=== PATIENT | male | born 1950 | race Caucasian/White ===

== ENCOUNTER 2022-02-07 16:56 | Emergency (ER) | payer MEDICARE, SELFPAY ==
[2022-02-07 17:12] VITALS: BP 173/77; PULSE 73; RESP 16; TEMP 37.1; O2SAT 98; BMI 25.1
--- NOTE | 2022-02-07 17:37 | ED.GENADULT ---
HPI - General Adult General Chief complaint: Urogenital Problems, Male Stated complaint: PROSTATE CATHETER - BURNING SENSATION Time Seen by Provider: 02/07/22 17:01 Source: patient History of Present Illness HPI narrative: Patient is a 71-year-old male who presents with discomfort from his catheter. He was seen last Tuesday for urinary retention a catheter was placed. He tells me he was at [facility] on and they were going to do a trial void, but he has a urology appointment for this upcoming Tuesday, and so Dr. Rodriguez had apparently decided just to leave the catheter in. He says since he has really had a burning sensation in his penis from the catheter, particularly when he has the urge to void. He has not had any abdominal pain, fevers, chills. The urine has not looked cloudy or bloody. The catheter seems to be working just fine, draining well. It has just been very uncomfortable, and he decided to get it checked out today, wondering if there is anything he can take for it. He has never had a catheter before. Related Data Home Medications Medication Instructions Recorded Confirmed allopurinol 300 mg tablet mg 02/07/22 lisinopril 10 mg tablet mg 02/07/22 metoprolol succinate 50 mg mg PO 02/07/22 tablet,extended release 24 hr simvastatin 80 mg tablet mg 02/07/22 tamsulosin 0.4 mg capsule mg PO 02/07/22 Allergies Allergy/AdvReac Type Severity Reaction Status Date / Time No Known Drug Allergies Allergy Verified 02/07/22 17:12 Review of Systems Status of ROS: Reports: 10 or more systems reviewed and unremarkable except as noted in History and below [facility] Medical History Gout Hypertension Urinary retention Surgical History No significant past surgical history Exam Narrative: Exam Narrative: In general, an alert, well-appearing male. Looks comfortable. Abdomen: Soft and nontender. exam deferred Extremities: Leg bag in place, draining well. Skin: Warm and dry, well perfused. Neurologic: Alert, conversant. Affect: Normal. Const: Vital Signs, click to edit/add: Vital Signs - 24 hr 02/07/22 17:12 Temperature 98.8 F Pulse Rate [Pulse Oximeter] 73 Respiratory Rate 16 Blood Pressure [Ri ght Upper Arm] 173/77 H Pulse Oximetry 98 Oxygen Delivery Me thod Room Air Documenting provider has reviewed patient's vital signs: yes Course Course Hospital Course: We will start by getting a urinalysis to rule out any sign of significant infection. Discussed with him that what he is describing sounds like it could just be related to symptoms from the catheter itself. He would like to do a trial void if the UA is negative. Patient did eventually fail the trial of void. UA was negative. Following catheter placement with Uro jet, patient feels much better. Discussed that as the topical anesthetic wears off he probably will have recurrence of the discomfort he was having earlier. He wondered if aspirin would help. He can certainly try that. I offered stronger pain medication if you would like particularly to help with sleep, he thought that would be good idea since he says at least earlier today the pain was fairly severe. Follow-up with Urology as planned. Vital Signs Vital signs: Initial Vital Signs Temperature 98.8 F 02/07/22 17:12 Temperature Source Temporal Artery Scan 02/07/22 17:12 Pulse Rate 73 02/07/22 17:12 Respiratory Rate 16 02/07/22 17:12 Blood Pressure 173/77 H 02/07/22 17:12 Blood Pressure Mean 109 02/07/22 17:12 Pulse Oximetry 98 02/07/22 17:12 Oxygen Delivery Method 02/07/22 17:12 Vital Signs Temperature 98.8 F 02/07/22 17:12 Pulse Rate 73 02/07/22 17:12 Respiratory Rate 16 02/07/22 17:12 Blood Pressure 173/77 H 02/07/22 17:12 Pulse Oximetry 98 02/07/22 17:12 Oxygen Delivery Method 02/07/22 17:12 Temperature 98.8 F 02/07/22 17:12 Pulse Rate 73 02/07/22 17:12 Respiratory Rate 16 02/07/22 17:12 Blood Pressure 173/77 H 02/07/22 17:12 Pulse Oximetry 98 02/07/22 17:12 Oxygen Delivery Method 02/07/22 17:12 Medical Decision Making Lab Data Labs: Lab Results 02/07/22 Range/Units 17:35 Urine Color Yellow (Yellow) Urine Appearance Clear (Clear) Urine pH 5.5 (5.0-8.5) Ur Specific [place] >= 1.030 (1.000-1.030) Urine Protein 2+ A (Negative) Urine Glucose (UA) Negative (Negative) Urine Ketones Negative (Negative) Urine Blood 3+ A (Negative) Urine Nitrite Negative (Negative) Urine Bilirubin Negative (Negative) Urine Urobilinogen 0.2 (0.2-1.0) Ur Leukocyte Esterase Trace A (Negative) Urine RBC 25-50 A (0-2) Urine WBC 2-5 (0-5) Ur Squamous Epith Cells Few (None-Few) Urine Bacteria None (None) Discharge Plan Discharge Clinical Impression: Complication of Wylie catheter Patient Disposition: Home, Self-Care Condition: Stable Additional Instructions: Urology follow-up on Tuesday as planned. There is no evidence of infection on the urinalysis today. Okay to try aspirin, oxycodone if needed for more severe pain. Prescriptions: No Action metoprolol succinate 50 mg tablet extended release 24 hr PO simvastatin 80 mg tablet tamsulosin 0.4 mg capsule PO lisinopril 10 mg tablet allopurinol 300 mg tablet Follow Up/Referrals: Jose Mason MD [Primary Care Provider] - Stand Alone Forms: Styky Info Instructions
--- OUTSIDE RECORDS SUMMARY | 2022-02-07 17:49 | XMS_ITS | Clinical Summary ---
:1950 Author Organization [facility] [place] [address] Care Team Providers Name Role Phone Jayro Mcconnell MD Primary Care Provider Ab Rm MD Unavailable [phone] Allergies No known active allergies Medications Medication Sig Dispensed Refills Start Date End Date Status aspirin enteric coated Take 1 tablet 90 tablet 3 03/24/2018 Active (ECOTRIN) 325 mg by mouth once tabletIndications: daily with a Coronary artery disease meal. involving port lions coronary artery of port lions heart without angina pectoris nitroglycerin (Nitrostat) Place 1 25 Tablet 6 12/16/2021 Active 0.4 mg sublingual Tablet (0.4 tabletIndications: mg) under the Coronary artery disease tongue every involving port lions coronary 5 minutes if artery of port lions heart needed for without angina pectoris Chest Pain. allopurinoL (ZYLOPRIM) 300 Take 1 Tablet 90 Tablet 3 2 Active mg tabletIndications: (300 mg) by Gout, unspecified cause, mouth once unspecified chronicity, daily. unspecified site lisinopriL (PRINIVIL; Take 1 Tablet 90 Tablet 3 12/16/2021 Active ZESTRIL) 10 mg (10 mg) by tabletIndications: mouth once Essential hypertension daily. metoprolol succinate Take 1 Tablet 90 Tablet 3 12/16/2021 Active (TOPROL XL) 50 mg (50 mg) by sustained-release mouth once tabletIndications: daily. Essential hypertension simvastatin (ZOCOR) 80 mg Take 1 Tablet 90 Tablet 3 12/16/2021 Active tabletIndications: Pure (80 mg) by hypercholesterolemia mouth at bedtime. tamsulosin (Flomax) 0.4 mg Take 2 180 Capsule 3 12/16/2021 Active capsuleIndications: Benign Capsules (0.8 non-nodular prostatic mg) by mouth hyperplasia with lower once daily urinary tract symptoms after a meal. Active Problems Problem Noted Date Essential hypertension 08/16/2018 Seborrheic keratosis 07/22/2017 Overview: 1 by 1.5 cm flesh colored lesion on righ t shoulder. 6 by 15 mm as of 10/14/2017 Benign non-nodular prostatic hyperplasia with lower ur inary tract symptoms 07/21/2015 Coronary artery disease involving port lions coronary richard ry of port lions heart 05/19/2015 without angina pectoris Overview: Stent in mid left anterior descending in 2007. No history of VT. Idiopathic gout 05/19/2015 CKD (chronic kidney disease) stage 3, GFR 30-59 ml/min 08/13/2013 Overview: 07/28/12 Creatinine 1.38, glomerular filt ration rate 53 07/27/13 Creatinine 1.27, glomerular filt ration rate 58 DDD (degenerative disc disease), lumbar 08/27/2011 Degenerative arthritis of both hips - R worse than L 0 08/27/2011 Overview: Pt scheduled for right total hip arthrop lasty on 08/20/[address] Herron Elevated prostate specific antigen (PSA) 08/22/2011 Overview: Bx negative in 2011 Colon polyp 09/02/2010 Overview: Colonoscopy 08/2010 polyp repeat in 3 yea rs Colonoscopy 12/2013 normal repeat in 5 ye ars Colonoscopy 12/2018 normal, repeat in 5 y ears Prediabetes 07/29/2009 Overview: Glucose (07/27/13) 116 Generalized hyperhidrosis 10/24/2007 Degeneration of lumbar or lumbosacral intervertebral d isc 03/23/2007 Overview: Pt takes aspirin in the morning. Pure hypercholesterolemia 03/23/2007 Overview: Last Lipids: Chol: 148 07/28/2012 T 07/28/2012 HDL: 39 07/28/2012 LDL: 81 07/28/2012 On simvastatin Resolved Problems Problem Noted Date Resolved Date Other chest pain 10/24/2007 01/19/2008 Overview: -had pain 3 years ago -stress test was negative per patient r eport -this time started 10/18/[address] (does not usually drive) -had same pain while running a couple o f blocks on 10/19/2007 -same pain while walking around [place] 10/20/2007 -same pain 2 episodes 10/24/2007 -chest burning/tightness -some dyspnea -some diaphoresis -radiating to left arm and up into neck /jaw Gouty Arthropathy 03/23/2007 08/13/2013 Encounters Date Type Specialty Care Team Description 02/04/2022 Office Visit Douglas Rodriguez Follo w Up (catheter) 02/04/2022 Travel 02/03/2022 Orders Only Douglas Rodriguez, <No s cans attached> 02/01/2022 Office Visit Douglas Rodriguez Urina ry Problem (Urgency, MD not urinating m sabas rowan, deniz moreno, x 2 day) 02/01/2022 Travel 01/05/2022 Office Visit Leanna Cramer Reche ck (Lesion of throat) PA 01/05/2022 Travel 12/16/2021 Office Visit Jayro Mcconnell MD [facility] ANNUAL (subsequent) Vi sit (71 years) 12/16/2021 Travel 11/26/2021 Refill Jayro Mcconnell MD Refi ll Request (Simvastatin) from Last 3 Months Immunizations Name Administration Dates Next Due Amb Influenza, Inactivated AIIV4 (Age 65+ Years) 02/07/2020 Preserv Free COVID-19 vaccine (Moderna 100mcg/0.5mL) TANVIR MATTHEWS 08/07/2020, 07/10/2020 Influenza, Inactivated IIV3 (Age 65+ Years) Preserv 07/10/19 20 Free Pneumococcal Poly,23-Valent (Pneumovax) 10/18/2019 Pneumococcal conj 13-Valent (Prevnar 13) 10/16/2018 Td (Age >=7 Years) 06/28/2005 Tdap 04/23/2016 Zoster (Shingrix-RZV, recombinant) 09/04/2020, 05/14/2020 Zoster (Zostavax-ZVL, live) 02/26/2013 Family History Medical History Relation Name Comments Arthritis Father bilateral hip re placements Heart Disease Father needed 3 stents at age 88 Hypertension Father later in life Other Father of old age at 91; he also had mesothelioma Stroke Mother of stroke a t 71; smoker Hypertension Other [place] Relation Name Status Comments Brother 1 Alive Brother 2 Alive Brother 3 Alive Father Mother Other Sister 1 Galina Alive Sister 2 Mary Alive Sister 3 Alive Social History Tobacco Use Types Packs/Day Years Used Date Never Smoker Smokeless Tobacco: Never Used Tobacco Cessation: Counseling Given: Yes Comments: lived with 2nd hand smoke for 18 yrs. Alcohol Use Standard Drinks/Week Comments No 0 (1 standard drink = 0.6 oz pure alcoho l) Sex Assigned at Date Recorded Not on file COVID-19 Exposure Response Date Recorded In the last 10 days, have you been in contact with No / Unsu re 02/04/2022 9:29 AM CDT someone who was confirmed or suspected to have Coronavirus/COVID-19? 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 Saturation 98% 02/04/2022 9:34 AM CDT Inhaled Oxygen Concentration - - Weight 73.2 kg (161 lb 6.4 oz) 02/04/2022 9:34 AM CDT Height 169.7 cm (5' 6.8) 02/04/2022 9:34 AM CDT Body Mass Index 25.43 02/04/2022 9:34 AM CDT Plan of Treatment Upcoming Encounters Date Type Specialty Care Team Description 04/15/2022 Office Visit Mindi Godinez MD [address] [phone] (Wo rk) 07/07/2022 Office Visit Leanna Cramer PA [address] [facility] [place], [place] [address] (Wo rk) Health Maintenance Due Date Last Done Comments COVID-19 vaccine series (5 - 11/02/2021 09/07/2021, 021, Booster for Moderna series) 08/07/2020, Addition al history exists Influenza for age 65+ 01/07/2022 02/07/2020, 07/10/2019 Depression screening for age 12+ 12/16/2022 12/16/2021, , 2019, Additional history exists Medicare Wellness for age 65+ 12/16/2022 12/16/2021, 2020, 2019, Additional history exists BMI (ht and wt on same day) for 02/04/2023 02/04/2022, 01/08, age 18+ 12/16/2021, Additional history exists Colonoscopy through age 75 01/05/2024 01/04/2019, 9, 01/04/2019, Additional history exists Tetanus booster 04/23/2026 04/23/2016, 06/28/2005 Lipids for age 45-75 12/16/2026 12/16/2021, 10/21/2020, 10/18/2019, Additional history exists Tdap Completed 04/23/2016 Hepatitis C screening for age Completed 08/04/2016 18-79 Pneumococcal series for age 65+ Completed 10/18/2019, 10/07 Zoster (shingles) series for age Completed 09/04/2020, 10/2020, 50+ 02/26/2013 Medical Devices Implanted Type Area Director Cloud Transformation Device Shelf Model / Identifier Expiration Serial / Lot Date Head Hip Od28mm +4 Biolox Delta C-Taper Alumina Cer - [id number] Right: [employer] [id number]# / Implanted: Qty: 1 on 08/20/2013 at [facility] [employer] / [id number] Head Hip Od28mm +4 [employer]ox Delta C-Taper Alumina Cer - [id number] Left: [employer] [id number]# / Implanted: Qty: 1 on 06/05/2015 by Ramiro Puentes MD at [facility] / [id number] Procedures Procedure Name Priority Date/Time Associated Diagnosis Comme nts UA W/ SEDIMENT EXAM Routine 02/01/2022 10:15 Dysuria Resu lts for REFLEXED PER AM CDT this procedure CRITERIA are in the results section. CBC WITH AUTO Routine 12/16/2021 11:03 Gout, unspecified cause , Results for DIFFERENTIAL AM CDT unspecified chronicity, this procedure unspecified site are in the results section. VITAMIN D 25 Routine 12/16/2021 11:03 Vitamin D deficiency Res ults for (DEFICIENCY) AM CDT this procedure are in the results section. URIC ACID Routine 12/16/2021 11:03 Gout, unspecified cause, Results for AM CDT unspecified chronicity, this procedure unspecified site are in the results section. CBC WITH AUTO Routine 12/16/2021 11:03 Gout, unspecified cause , Results for DIFFERENTIAL AM CDT unspecified chronicity, this procedure unspecified site are in the results section. ALT (SGPT) Routine 12/16/2021 11:03 Gout, unspecified cause, Results for AM CDT unspecified chronicity, this procedure unspecified site are in the results section. BASIC METABOLIC Routine 12/16/2021 11:03 Essential hypertensio n Results for PANEL AM CDT this procedure are in the results section. LIPID PANEL W Routine 12/16/2021 11:03 HYPERCHOLESTEROLEMIA Re sults for REFLEX MEASURED LDL AM CDT this pro cedure are in the results section. PSA TOTAL Routine 12/16/2021 11:03 Elevated prostate specif ic Results for (DIAGNOSTIC) AM CDT antigen (PSA) this procedure are in the results section. from Last 3 Months Results UA W/ SEDIMENT EXAM REFLEXED PER CRITERIA (02/01/2022 10:15 AM CDT) [facility] Method Time Signature COLOR Yellow Yellow Color 02/01/2022 [facility] 10:20 AM CDT [facility] CLARITY Clear Clear 02/01/2022 [facility] Clarity 10:20 AM CDT [facility] SPECIFIC 1.020 1.010, 02/01/2022 [facility] GRAVITY,URINE 1.015, 10:20 AM [facility] 1.020, 1.025 [facility] PH,URINE 5.5 6.0, 7.0, 02/01/2022 [facility] 8.0, 5.5, 10:20 AM [facility] 6.5, 7.5, CLINIC 8.5 UROBILINOGEN, Normal Normal EU/dl 02/01/2022 [facility] H QUALITATIVE 10:20 AM [facility] PROTEIN, Negative Negative 02/01/2022 [facility] URINE mg/dL 10:20 AM [facility] GLUCOSE, Negative Negative 02/01/2022 [facility] URINE mg/dL 10:20 AM [facility] KETONES,URINE Negative Negative 02/01/2022 [facility] mg/dL 10:20 AM [facility] BILIRUBIN,URI Negative Negative 02/01/2022 [facility] NE 10:20 AM [facility] OCCULT Negative Negative 02/01/2022 [facility] BLOOD,URINE 10:20 AM [facility] NITRITE Negative Negative 02/01/2022 [facility] 10:20 AM [facility] LEUKOCYTE Negative Negative 02/01/2022 [facility] ESTERASE 10:20 AM [facility] Specimen Anatomical Collection Method Collection Time Receive d Time (Source) Location / / Volume Laterality Urine URINE SPECIMEN / Non-Blood / 02/01/2022 10:15 022 Unknown Unknown AM CDT 10:18 AM CDT Douglas Rodriguez MD URINE Performing Organization Address City/State/ZIP Code Phon e Number [facility] [address] [place] [address] (ABNORMAL) CBC WITH AUTO DIFFERENTIAL (12/16/2021 11:03 AM CDT) [facility] Method Time Signature WHITE BLOOD 7.8 4.5 - 12/16/2021 [facility] COUNT 11.0 11:07 AM [facility] thou/cu CLINIC mm RED BLOOD COUNT 4.70 4.30 - 12/16/2021 [facility] 5.90 11:07 AM [facility] mil/cu mm CLINIC HEMOGLOBIN 14.6 13.5 - 12/16/2021 [facility] 17.5 g/dL 11:07 AM CDT [facility] HEMATOCRIT 44.4 37.0 - 12/16/2021 [facility] 53.0 % 11:07 AM CDT [facility] MCV 95 80 - 100 12/16/2021 [facility] fL 11:07 AM CDT [facility] MCH 31.1 26.0 - 12/16/2021 [facility] 34.0 pg 11:07 AM T [facility] MCHC 32.9 32.0 - 12/16/2021 [facility] 36.0 g/dL 11:07 AM CDT [facility] RDW 14.2 11.5 - 12/16/2021 [facility] 15.5 % 11:07 AM T [facility] PLATELET COUNT 218 140 - 440 12/16/2021 [facility] thou/cu 11:07 AM CDT [facility] CLINIC MPV 11.3 (H) 6.5 - 12/16/2021 [facility] 11.0 fL 11:07 AM T [facility] % NEUT 70.8 % 12/16/2021 [facility] 11:07 AM CDT [facility] % LYMPH 20.0 % 12/16/2021 [facility] 11:07 AM CDT [facility] % MONO 8.3 % 12/16/2021 [facility] 11:07 AM CDT [facility] % EOS 0.6 % 12/16/2021 [facility] 11:07 AM T [facility] % BASO 0.3 % 12/16/2021 [facility] 11:07 AM CDT [facility] ABSOLUTE 5.5 1.7 - 7.0 12/16/2021 [facility] NEUTROPHILS thou/cu 11:07 AM CDT [facility] CLINIC ABSOLUTE 1.6 0.9 - 2.9 12/16/2021 [facility] LYMPHOCYTES thou/cu 11:07 AM CDT [facility] mm CLINIC ABSOLUTE 0.6 <0.9 12/16/2021 [facility] MONOCYTES thou/cu 11:07 AM CDT [facility] mm CLINIC ABSOLUTE 0.1 <0.5 12/16/2021 [facility] EOSINOPHILS thou/cu 11:07 AM CDT [facility] mm CLINIC ABSOLUTE 0.0 <0.3 12/16/2021 [facility] BASOPHILS thou/cu 11:07 AM CDT [facility] CLINIC Specimen Anatomical Collection Method / Collection Time Recei jerod Time (Source) Location / Volume Laterality Blood BLOOD SPECIMEN / Venipuncture / 12/16/2021 11:03 12/16 Unknown Unknown AM CDT 11:03 AM CDT Jayro Mcconnell MD HEMATOLOGY Performing Organization Address City/State/ZIP Code Phon e Number [facility] [address] [place] [address] LIPID PANEL W REFLEX MEASURED LDL (12/16/2021 11:03 AM CDT) [facility] gist Method Time Signature CHOLESTEROL,TOTAL 143 100 - 199 12/16/2021 [facility] mg/dL 6:14 PM CDT [facility] TRIGLYCERIDES 89 <150 12/16/2021 [facility] mg/dL 6:14 PM CDT [facility] HDL CHOLESTEROL 41 >40 mg/dL 12/16/2021 [facility] 6:14 PM CDT [facility] NON-HDL 102 <145 12/16/2021 [facility] CHOLESTEROL mg/dl 6:14 PM CDT [facility] CHOL/HDL RATIO 3.49 <4.50 12/16/2021 [facility] 6:14 PM CDT [facility] LDL CHOLESTEROL 84 <=130 12/16/2021 [facility] mg/dL 6:14 PM CDT [facility] VLDL CHOLESTEROL 18 <=30 12/16/2021 [facility] mg/dL 6:14 PM CDT [facility] PROVIDER ORDERED RANDOM 12/16/2021 [facility] STATUS 6:14 PM CDT [facility] Specimen Anatomical Collection Method / Collection Time Recei jerod Time (Source) Location / Volume Laterality Blood BLOOD SPECIMEN / Venipuncture / 12/16/2021 11:03 12/16 Unknown Unknown AM CDT 11:03 AM CDT Jayro Mcconnell MD CHEMISTRY Performing Organization Address City/State/ZIP Code Phon e Number [facility] [address] [place] [address] LAB[facility]ATORY-CENTRAL 2000 LABORATORY VITAMIN D 25 (DEFICIENCY) (12/16/2021 11:03 AM CDT) athologist Signature VITAMIN D 48.5 30.0 - 12/16/2021 [facility] TOTAL 80.0 ng/mL 6:36 PM CDT [facility] Specimen Anatomical Collection Method / Collection Time Recei jerod Time (Source) Location / Volume Laterality Blood BLOOD SPECIMEN / Venipuncture / 12/16/2021 11:03 12/16 Unknown Unknown AM CDT 11:03 AM CDT Narrative [facility]-CENTRAL LABORAT ORY - 12/16/2021 6:36 PM CDT Deficiency: ? <20 ng/mL Insufficiency: ?20-29 ng/mL Sufficiency: ?30-80 ng/mL Possible Toxicity: ??>80 ng/mL Based on [place] [facility] recommend ations Jayro Mcconnell MD SEND OUTS Performing Organization Address City/[facility]/ZIP [facility] [place] e Number [facility] [address] [place] [address] [place] [address] LABORATORY-CENTRAL 2000 LABORATORY URIC ACID (12/16/2021 11:03 AM CDT) athologist Signature URIC ACID 5.2 3.5 - 7.2 12/16/2021 [facility] mg/dL 6:14 PM CDT [facility] Specimen Anatomical Collection Method / Collection Time Recei jerod Time (Source) Location / Volume Laterality Blood BLOOD SPECIMEN / Venipuncture / 12/16/2021 11:03 12/16 Unknown Unknown AM CDT 11:03 AM CDT Jayro Mcconnell MD CHEMISTRY Performing Organization Address City/State/ZIP Code Phon e Number [facility] [address] [place] [address] LABORATORY-CENTRAL 1999 LABORATORY ALT (SGPT) (12/16/2021 11:03 AM CDT) athologist Signature ALT (SGPT) 20 8 - 45 IU/L 12/16/2021 [facility] 6:14 PM CDT [facility] Specimen Anatomical Collection Method / Collection Time Recei jerod Time (Source) Location / Volume Laterality Blood BLOOD SPECIMEN / Venipuncture / 12/16/2021 11:03 12/16 Unknown Unknown AM CDT 11:03 AM CDT Jayro Mcconnell MD CHEMISTRY Performing Organization Address [facility] Phon e Number [facility] [address] [facility] [place] [address] LABORATORY-CENTRAL 1999 LABORATORY (ABNORMAL) PSA TOTAL (DIAGNOSTIC) (12/16/2021 11:03 AM CDT) Analysis Performed At [facility] Time Signature PSA TOTAL 8.13 (H) <4.00 12/16/2021 [facility] (DIAGNOSTIC) ng/mL 6:36 PM CDT [facility] Specimen Anatomical Collection Method / Collection Time Recei jerod Time (Source) Location / Volume Laterality Blood BLOOD SPECIMEN / Venipuncture / 12/16/2021 11:03 12/16 Unknown Unknown AM CDT 11:03 AM CDT Narrative [facility]AT[facility]-CENTRAL LABORAT ORY - 12/16/2021 6:36 PM CDT The percentage of Free PSA can be used to enhance the differentiation of prostate cancer from benign prostatic disease in subjects whose PSA levels are between 4.00 and 10.00 ng/mL. The % Free PSA will be reported only for PSA values between 4.00 and 10.00 ng/mL. The [employer] T[employer] Aluminum PSA assay is a Chem iluminescent Microparticle Immunoassay(CMIA). Assay values obtained with different assay methods cannot be used interchangeably due to differences in assay method s and reagent specificity. ? Jayro Mcconnell MD CHEMISTRY Performing Organization Address City/[facility] Phon e Number [facility] [address] [facility] [place] [address] LABORATORY-CENTRAL 1999 LABORATORY (ABNORMAL) BASIC METABOLIC PANEL (12/16/2021 11:03 AM CDT) Analysis Performed At [facility] Time Signature SODIUM 143 135 - 145 12/16/2021 [facility] mmol/L 6:13 PM CDT [facility] POTASSIUM 4.5 3.5 - 5.0 12/16/2021 [facility] mmol/L 6:13 PM CDT [facility] CHLORIDE 108 98 - 110 12/16/2021 [facility] mmol/L 6:13 PM CDT [facility] CO2,TOTAL 25 21 - 31 12/16/2021 [facility] mmol/L 6:13 PM CDT [facility] ANION GAP 10 5 - 18 12/16/2021 [facility] 6:13 PM CDT [facility] GLUCOSE 103 (H) 65 - 100 12/16/2021 [facility] mg/dL 6:13 PM CDT [facility] CALCIUM 9.4 8.5 - 10.5 12/16/2021 [facility] mg/dL 6:13 PM CDT [facility] BUN 17 8 - 25 12/16/2021 [facility] mg/dL 6:13 PM CDT [facility] CREATININE 1.17 0.72 - 12/16/2021 [facility] 1.25 mg/dL 6:13 PM CDT [facility] BUN/CREAT RATIO 15 10 - 20 12/16/2021 [facility] 6:13 PM CDT [facility] eGFR 67 (L) >90 12/16/2021 [facility] mL/min/1.7 6:13 PM CDT LABORATORY-STAN 3m2 TRAL LABORATORY Comment: As of 2021, eGFR is calcu lated by the CKD-EPI creatinine equation without race adjustment. eGFR can be inf luenced by muscle mass, exercise, and diet. The reported eGFR is an estimation only and is only applicable if the renal function is stable. Specimen Anatomical Collection Method / Collection Time Recei jerod Time (Source) Location / Volume Laterality Blood BLOOD SPECIMEN / Venipuncture / 12/16/2021 11:03 12/16 Unknown Unknown AM CDT 11:03 AM CDT Jayro Mcconnell MD CHEMISTRY Performing Organization Address City/State/ZIP Code Phon e Number [employer] [address] 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 Explanati on Healthcare Directive 12/06/2008 [facility] CARE DIRECTIVE, [facility], 11/08 Latest Code Status on File Code Status Date Activated Date Inactivated Comments Full Code 06/05/2015 2:06 PM 06/08/2015 8:05 PM Full Code 06/05/2015 5:15 AM 06/05/2015 2:06 PM Full Code 08/20/2013 4:24 PM 08/22/2013 7:11 PM Full Code 08/20/2013 7:59 AM 08/20/2013 4:24 PM Full Code 10/24/2007 4:57 PM 10/26/2007 3:31 PM Care Teams Can Closing 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
[2022-02-07 17:50] LABS: Appearance Urine Clear (Clear); Bilirubin Urine Negative (Negative); Blood Urine 3+ (Negative); Color Urine Yellow (Yellow); Glucose Urine Negative (Negative); Ketones Urine Negative (Negative); Leukocyte Esterase Urine Trace (Negative); Nitrite Urine Negative (Negative); Protein Urine 2+ (Negative); Specific Gravity Urine >= 1.030 (1.000-1.030); Urobilinogen Urine 0.2 (0.2-1.0); pH Urine 5.5 (5.0-8.5)
[2022-02-07 18:03] LABS: RBC Urine 25-50 (0-2); Squamous Epithelial Cell Urine Few (None-Few)
--- NOTE | 2022-02-07 18:57 | ED.NURSE ---
Bladder instilled with 150cc normal saline and conroy catheter removed with balloon intact.
--- NOTE | 2022-02-07 20:40 | ED.NURSE ---
Coude catheter size 18 placed with 10cc balloon inflated. Drained 300 pink tinged urine.
--- OUTSIDE RECORDS SUMMARY | 2022-02-13 21:27 | XMS_ITS | Encounter Summary ---
:1950 Author Care Team Providers Name Role Phone [facility] Primary Care Provider [phone] Reason for Visit Urinary Retention Assessment and Plan Assessment Note 71 Y/O MALE, HX ACUTE URINARY RETENTION , HAS BEEN ON FLOMAX FOR YEARS. CATHED FOR 800CC. AGUSTO 45G. NEG BX IN THE PAST. REVIEWED OPTIONS REVIEWED RECORDS, LABBS PRESENT FOR ADDED HX. PLAN RTC 1 WEEK FOR CYSTO TOV. STAND EL L DRAINAGE BAG. CONT FLOMAX 1. Retention of urine 2. Benign prostatic hyperplasia with ou tflow obstruction Discussion Note: None recorded.Patient educational handouts: No information available. Plan of Care Reminders Provider Appointments Established 10 02/16/2022 8:20AM Ernie Loya MD Lab None recorded. ? ? Referral None recorded. ? ? Procedures None recorded. ? ? Surgeries None recorded. ? ? Imaging None recorded. ? ? Medications Name Start Date ? ? allopurinol 300 mg tablet ? aspirin 81 mg capsule ? Take 1 capsule every day by oral route. lisinopril 10 mg tablet ? metoprolol succinate ER 50 mg tablet,extended release 24 hr ? nitroglycerin 0.4 mg sublingual tablet ? simvastatin 80 mg tablet ? tamsulosin 0.4 mg capsule ? Medications Administered None recorded. Vitals Height Weight BMI 5 ft 7 in 160 lbs 25.1 kg/m2 Results Lab Results None recorded. Allergies Code Code System Name Reaction Severity Onset NKDA ? ? ? Problems None recorded. Procedures None recorded. Vaccine List None recorded. Social History Tobacco Smoking Status Never Smoker What was the date of your most recent tobacco screening? 09/2021 Family History Relation Problem Onset Age of Age Notes Father No current problems or (No Information) N/A ( No Notes) disability Mother No current problems or (No Information) N/A ( No Notes) disability Functional Status Unknown. Past Encounters 02/10/2022 Retention of Urine; Benign Prostatic Hyp erplasia with Outflow Obstruction Ernie Loya MD: [address] [place] [address], Ph. History of Present Illness Note: <div>71 YOM HERE FOR URINARY RETENTION. HX OF ELEVATED PSA. PROSTATE BX [place] [address] HAGEN. NEGATIVE PATHOLOGY. CATHETER PLACED A WEEK AGO, SEEN IN ER ON WEDNESDAY 02/07, cathed FOR 800CC . FAILED TOV. ON FLOMAX . NOCTURIA X 1-2. </div> Review of Systems ? Comprehensive General Adult ROS Reported By: Patient Constitutional: Constitutional: no fever, no chills Eyes: Eyes: no dry eyes, no vision change, no irritation Endocrine: Endocrine: no fatigue, no in creased thirst Cardiovascular: Cardiovascular: no chest rosanna n, no palpitations Integumentary: Skin: no rashes, no change i n skin color Respiratory: Respiratory: no wheezing, no cough, no shortness of breath Gastrointestinal: Gastrointestinal: no abdomin al pain, no nausea, no vomiting, no constipation, no GERD Musculoskeletal: Musculoskeletal: no neck rosanna n, no back pain Neurologic: Neurologic: no tremor, no di zziness, no numbness, no headaches Genitourinary: Genitourinary: no incontinen ce, no difficulty urinating ENMT: Ears: no ear pain. Mouth/Thr oat: no sore throat Allergic/Immunologic: Allergy/Immunologic: no itch ing, no hives Hematologic/Lymphatic: Hematologic/Lymphatic no swo llen glands, no excessive bleeding Psychiatric: Psych: no hallucinations, (n ormal) sleep disturbances: mismatch of sleep / wake falguni edule with lifestyle needs Physical Exam ? Brief Exam Reported By: Patient Male : Penis: no lesions, no discha rge. Scrotum: no swelling, no tenderness. Testes: palpable bilaterally , not enlarged. Prostate: symmetrical, not enlarged, non-tender, smooth / no nodules; SMOOTH 45G
--- OUTSIDE RECORDS SUMMARY | 2022-02-13 21:27 | XMS_ITS | Clinical Summary ---
:1950 Author Organization [facility] [place] [address] Care Team Providers Name Role Phone Jayro Mcconnell MD Primary Care Provider Ab Rm MD Unavailable [phone] Allergies No known active allergies Medications Medication Sig Dispensed Refills Start Date End Date Status aspirin enteric coated Take 1 tablet 90 tablet 3 03/24/2018 Active (ECOTRIN) 325 mg by mouth once tabletIndications: daily with a Coronary artery disease meal. involving [place] coronary artery of [place] heart without angina pectoris nitroglycerin (Nitrostat) Place 1 25 Tablet 6 12/16/2021 Active 0.4 mg sublingual Tablet (0.4 tabletIndications: mg) under the Coronary artery disease tongue every involving [place] coronary 5 minutes if artery of [place] heart needed for without angina pectoris Chest [...] tract symptoms 07/21/2015 Coronary artery disease involving [place] coronary richard ry of [place] heart 05/19/2015 without angina pectoris Overview: Stent in mid left anterior descending in 2007. No history of MS. 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 Oxygen Saturation 98% 02/04/2022 9:34 AM CDT Inhaled Oxygen Concentration - - Weight 73.2 kg (161 lb 6.4 oz) 02/04/2022 9:34 AM CDT Height 169.7 cm (5' 6.8) 02/04/2022 9:34 AM CDT Body Mass Index 25.43 02/04/2022 9:34 AM CDT Plan of Treatment Upcoming Encounters Date Type Specialty Care Team Description 04/15/2022 Office Visit Mindi Godinez MD [address] [phone] (Wo rk) 07/07/2022 Office Visit Leanna Cramer PA [address] [facility] [place], [place] [address] (Wo rk) Health Maintenance [...] 50+ 02/26/2013 Medical Devices Implanted Type Area Scarfer Operator Device Shelf Model / Identifier Expiration Serial / Lot Date Head Hip Od28mm +4 [employer] Delta C-Taper Alumina Cer - [id number] Right: [place] [employer] 6570-0-228# / Implanted: Qty: 1 on 08/20/2013 at [facility] [employer] / [id number] Head Hip Od28mm +4 [employer] Delta C-Taper [employer]umina Cer - [id number] Left: [place] [employer] [id number]# / Implanted: Qty: 1 on 06/05/2015 by Ramiro Puentes MD at [facility] / [id number] Procedures Procedure Name Priority Date/Time Associated Diagnosis [...] REFLEXED PER CRITERIA (02/01/2022 10:15 AM CDT) [facility] Method Time Signature COLOR Yellow Yellow Color 02/01/2022 [facility] 10:20 AM CDT [facility] CLARITY Clear Clear 02/01/2022 [facility] 10:20 AM CDT [facility] SPECIFIC 1.020 1.010, 02/01/2022 [facility] GRAVITY,URINE 1.015, 10:20 AM [facility] 1.020, 1.025 [facility] PH,URINE 5.5 6.0, 7.0, 02/01/2022 [facility] 8.0, 5.5, 10:20 AM T [place] 6.5, 7.5, CLINIC 8.5 UROBILINOGEN, Normal Normal EU/dl 02/01/2022 [facility] H QUALITATIVE 10:20 AM [facility] PROTEIN, Negative Negative 02/01/2022 [facility] URINE mg/dL 10:20 AM [facility] GLUCOSE, Negative Negative 02/01/2022 [facility] URINE mg/dL 10:20 AM [facility] KETONES,URINE Negative Negative 02/01/2022 [facility] mg/dL 10:20 AM [facility] BILIRUBIN,URI Negative Negative 02/01/2022 [facility] NE 10:20 AM [facility] OCCULT Negative Negative 02/01/2022 [facility] BLOOD,URINE 10:20 AM [facility] NITRITE Negative Negative 02/01/2022 [facility] 10:20 AM [facility] LEUKOCYTE Negative Negative 02/01/2022 [facility] ESTERASE 10:20 AM [facility] Specimen Anatomical Collection Method Collection Time Receive d Time (Source) Location / / Volume Laterality Urine URINE SPECIMEN / Non-Blood / 02/01/2022 10:15 022 Unknown Unknown AM CDT 10:18 AM CDT Douglas Rodriguez MD URINE Performing Organization Address City/State/ZIP Code Phon e Number [facility] [address] [place] [address] (ABNORMAL) CBC WITH AUTO DIFFERENTIAL (12/16/2021 11:03 AM CDT) [facility] Method Time Signature WHITE BLOOD 7.8 4.5 - 12/16/2021 [facility] COUNT 11.0 11:07 AM T [place] thou/cu CLINIC mm RED BLOOD COUNT 4.70 4.30 - 12/16/2021 [facility] 5.90 11:07 AM [facility] mil/cu mm CLINIC HEMOGLOBIN 14.6 13.5 - 12/16/2021 [facility] 17.5 g/dL 11:07 AM CDT [facility] HEMATOCRIT 44.4 37.0 - 12/16/2021 [facility] 53.0 % 11:07 AM CDT [place] [facility] MCV 95 80 - 100 12/16/[address] [facility] fL 11:07 AM CDT [facility] MCH 31.1 26.0 - 12/16/2021 [facility] 34.0 pg 11:07 AM T [facility] MCHC 32.9 32.0 - 12/16/2021 [facility] 36.0 g/dL 11:07 AM CDT [facility] RDW 14.2 11.5 - 12/16/2021 [facility] 15.5 % 11:07 AM T [facility] PLATELET COUNT 218 140 - 440 12/16/2021 [facility] thou/cu 11:07 AM CDT [facility] CLINIC MPV 11.3 (H) 6.5 - 12/16/2021 [facility] 11.0 fL 11:07 AM T [facility] % NEUT 70.8 % 12/16/[address] [facility] [facility] 11:07 AM CDT [facility] % LYMPH 20.0 % 12/16/[address] [facility] [facility] 11:07 AM CDT [facility] % MONO 8.3 % 12/16/[address] [facility] [facility] 11:07 AM CDT [facility] % EOS 0.6 % 12/16/[address] [facility] [facility] 11:07 AM T [facility] % BASO 0.3 % 12/16/2021 [facility] 11:07 AM CDT [place] [facility] ABSOLUTE 5.5 1.7 - 7.0 12/16/2021 [facility] NEUTROPHILS thou/cu 11:07 AM CDT [facility] CLINIC ABSOLUTE 1.6 0.9 - 2.9 12/16/2021 [facility] LYMPHOCYTES thou/cu 11:07 AM CDT [place] mm CLINIC ABSOLUTE 0.6 <0.9 12/16/2021 [facility] MONOCYTES thou/cu 11:07 AM CDT [place] mm CLINIC ABSOLUTE 0.1 <0.5 12/16/2021 [facility] EOSINOPHILS thou/cu 11:07 AM CDT [place] mm CLINIC ABSOLUTE 0.0 <0.3 12/16/2021 [facility] BASOPHILS thou/cu 11:07 AM CDT [facility] CLINIC Specimen Anatomical Collection Method / Collection Time Recei jerod Time (Source) Location / Volume Laterality Blood BLOOD SPECIMEN / Venipuncture / 12/16/2021 11:03 12/16 Unknown Unknown AM CDT 11:03 AM CDT Jayro Mcconnell MD HEMATOLOGY Performing Organization Address City/State/ZIP Code Phon e Number [facility] [address] [place] [address] LIPID PANEL W REFLEX MEASURED LDL (12/16/2021 11:03 AM CDT) [facility] gist Method Time Signature CHOLESTEROL,TOTAL 143 100 [...] [facility] [address] [place] [address] LABORATORY-CENTRAL 2000 LABORATORY VITAMIN D 25 (DEFICIENCY) (12/16/2021 11:03 AM CDT) athologist Signature VITAMIN D 48.5 30.0 - 12/16/2021 [facility] TOTAL 80.0 ng/mL 6:36 PM CDT LABORATORY-CENT RAL LABORATORY Specimen Anatomical Collection Method / Collection Time Recei jerod Time (Source) Location / Volume Laterality Blood BLOOD SPECIMEN / Venipuncture / 12/16/2021 11:03 12/16 Unknown Unknown AM CDT 11:03 AM CDT Narrative [facility] LABORATORY-CENTRAL LABORAT ORY - 12/16/2021 6:36 PM CDT Deficiency: ? <20 ng/mL Insufficiency: ?20-29 ng/mL Sufficiency: ?30-80 ng/mL Possible Toxicity: ??>80 ng/mL Based on [place] [facility] recommend ations Jayro Mcconnell MD SEND OUTS Performing Organization Address City/[facility]/ZIP [facility] Phon e Number [facility] [address] [place] [address] [place] [address] LABORATORY-CENTRAL 2000 LABORATORY URIC ACID (12/16/2021 11:03 AM CDT) athologist Signature URIC ACID 5.2 3.5 - 7.2 12/16/2021 [facility] mg/dL 6:14 PM CDT LABORATORY-[facility] LABORATORY Specimen Anatomical Collection Method / Collection Time Recei jerod Time (Source) Location / Volume Laterality Blood BLOOD SPECIMEN / Venipuncture / 12/16/2021 11:03 12/16 Unknown Unknown AM CDT 11:03 AM CDT Jayro Mcconnell MD CHEMISTRY Performing Organization Address City/State/ZIP Code Phon e Number [facility] [address] [place] [address] LABORATORY-CENTRAL 1999 LABORATORY ALT (SGPT) (12/16/2021 11:03 AM CDT) athologist Signature ALT (SGPT) 20 8 - 45 IU/L 12/16/2021 [facility] 6:14 PM CDT LABORATORY-CENT RAL LABORATORY Specimen Anatomical Collection Method / Collection Time Recei jerod Time (Source) Location / Volume Laterality Blood BLOOD SPECIMEN / Venipuncture / 12/16/2021 11:03 12/16 Unknown Unknown AM CDT 11:03 AM CDT Jayro Mcconnell MD CHEMISTRY Performing Organization Address [facility] Phon e Number [facility] [address] [facility] [place] [address] LABORATORY-CENTRAL 1999 LABORATORY (ABNORMAL) PSA TOTAL (DIAGNOSTIC) (12/16/2021 11:03 AM CDT) Analysis Performed At [facility] Time Signature PSA TOTAL 8.13 (H) <4.00 12/16/2021 [place] (DIAGNOSTIC) ng/mL 6:36 PM CDT LABORATORY-STAN TRAL LABORATORY Specimen Anatomical Collection Method / Collection Time Recei jerod Time (Source) Location / Volume Laterality Blood BLOOD SPECIMEN / Venipuncture / 12/16/2021 11:03 12/16 Unknown Unknown AM CDT 11:03 AM CDT Narrative [facility] LABORATORY-CENTRAL LABORAT ORY - 12/16/2021 6:36 PM CDT The percentage of Free PSA can be used to enhance the differentiation of prostate cancer from benign prostatic disease in subjects whose PSA levels are between 4.00 and 10.00 ng/mL. The % Free PSA will be reported only for PSA values between 4.00 and 10.00 ng/mL. The [employer] PSA assay is a Chem iluminescent Microparticle Immunoassay(CMIA). Assay values obtained with different assay methods cannot be used interchangeably due to differences in assay method s and reagent specificity. ? Jayro Mcconnell MD CHEMISTRY Performing Organization Address City/[facility] Phon e Number [facility] [address] [facility] [place] [address] LABORATORY-CENTRAL 1999 LABORATORY (ABNORMAL) BASIC METABOLIC PANEL (12/16/2021 11:03 AM CDT) Analysis Performed At [facility] Time Signature SODIUM 143 135 - 145 12/16/2021 [facility] mmol/L 6:13 PM CDT LABORATORY-STAN TRAL LABORATORY POTASSIUM 4.5 3.5 - 5.0 12/16/2021 [facility] mmol/L 6:13 PM CDT LABORATORY-STAN TRAL LABORATORY CHLORIDE 108 98 - 110 12/16/2021 [facility] mmol/L 6:13 PM CDT LABORATORY-STAN TRAL LABORATORY CO2,TOTAL 25 21 - 31 12/16/2021 [facility] mmol/L 6:13 PM CDT LABORATORY-STAN TRAL LABORATORY ANION GAP 10 5 - 18 12/16/2021 [facility] 6:13 PM CDT LABORATORY-ST[facility] TRAL LABORATORY GLUCOSE 103 (H) 65 - 100 12/16/2021 [facility] mg/dL 6:13 PM CDT LABORATORY-ST[facility] TRAL LABORATORY CALCIUM 9.4 8.5 - 10.5 12/16/2021 [facility] mg/dL 6:13 PM CDT LABORATORY-[facility] TR[facility] LABORATORY BUN 17 8 - 25 12/16/2021 [facility] mg/dL 6:13 PM CDT LABORATORY-[facility] TRAL LABORATORY CREATININE 1.17 0.72 - 12/16/2021 [facility] 1.25 mg/dL 6:13 PM CDT LABORATORY-ST[facility] TRAL LABORATORY BUN/CREAT RATIO 15 10 - 20 12/16/2021 [facility] 6:13 PM CDT LABORATORY-[facility] TR[facility] LABORATORY eGFR 67 (L) >90 12/16/2021 [facility] mL/min/1.7 6:13 PM CDT LABORATORY-STAN 3m2 TRAL [...] Organization Address City/State/ZIP Code Phon e Number [facility] [address] [place] [address] LABORATORY-CENTRAL 2000 LABORATORY from Last 3 Months Insurance Payer Benefit Plan / Subscriber ID Effective Dates Phone Addre ss Type Group UCARE MR UCARE MEDICARE [id number] 2019-Present [address] [place] [address] Advance Directives Documents on File Type Date Recorded Patient Medical Records Auditor Explanati on Healthcare Directive 12/06/2008 [facility] CARE DIRECTIVE, 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
== END 2022-02-07 20:48 | disposition home or self-care (01) ==
PROVIDERS: Emergency Provider Emergency Medicine; PCP Family Medicine
DX: T83.84XA Pain due to genitourinary prosthetic devices, implants and grafts, initial encounter (principal); R30.9 Painful micturition, unspecified
CPT/HCPCS: 51702; 81001; 87086; 99283

== ENCOUNTER 2022-02-24 14:23 | Emergency (ER) | payer MEDICARE, SELFPAY ==
[2022-02-24 14:35] VITALS: PULSE 87; RESP 20; TEMP 36.6; O2SAT 96; BMI 24.7
[2022-02-24 14:44] VITALS: BP 178/75; PULSE 87; RESP 20; O2SAT 97
--- NOTE | 2022-02-24 14:53 | ED_ITS ---
HPI - Male Genitourinary General Time Seen by Provider: 14:54 Date Seen: 02/24/22 Chief complaint: Urogenital Problems, Male Stated complaint: Cath problem Time Seen by Provider: 02/24/22 14:53 Source: patient, RN notes reviewed and old records reviewed Mode of arrival: ambulatory Limitations: no limitations History of Present Illness HPI Narrative: Armani is a very pleasant 71-year-old gentleman with a history of gout, hypertension, hyperlipidemia and recent Wylie catheter insertion for inability to urinate who comes to the emergency room with blood in his urine, increasing urethral pain and leaking urine. Patient notes that he is always a little bit sweaty but feels like a little bit more than normal. He may also have some chills. He denies in overt fever. He has not had any nausea or vomiting. He denies abdominal pain. He notes that the urethra and penis significantly hurts when the urine leaks. He is noting a pain at the tip of his penis since the insertion of the Wylie catheter. Notes he has been putting some salves on this area. Patient is noted to have a History of elevated PSA with normal prostate biopsy in September [address] Garland. He has been diagnosed with benign prostatic hypertrophy. Related Data Home Medications Medication Instructions Recorded Confirmed allopurinol 300 mg tablet mg 02/07/22 lisinopril 10 mg tablet mg 02/07/22 metoprolol succinate 50 mg mg PO 02/07/22 tablet,extended release 24 hr simvastatin 80 mg tablet mg 02/07/22 tamsulosin 0.4 mg capsule mg PO 02/07/22 Allergies Allergy/AdvReac Type Severity Reaction Status Date / Time No Known Drug Allergies Allergy Verified 02/07/22 17:12 Review of Systems Status of ROS: Reports: 6 or more systems reviewed and unremarkable except as noted in History and below Const: Reports: chills; Denies: fever or fatigue Cardio: Denies: shortness of breath with exertion Resp: Denies: shortness of breath or cough GI: Denies: abdominal pain, nausea, vomiting or diarrhea : Reports: painful urination (When urine leaks around the catheter), blood in urine (More than the usual) and penile discharge (Of urine); Denies: scrotal swelling Musculo: Denies: back pain Neuro: Denies: headache Endo: Denies: fatigue PFSH PFSH Medical History Gout Hypertension Urinary retention Surgical History No significant past surgical history Social History Smoking Status: Never smoker Do you use any of these nicotine containing products: None Second hand tobacco smoke exposure: No How often do you have a drink containing alcohol: never How often do you have six or more drinks on one occasion: Never AUDIT-C Alcohol total score: 0 Non-prescribed substance use: denies use service: No Exam Narrative: Exam Narrative: PAST MEDICAL HISTORY: 1. Coronary artery disease status post stent placement in 2007. 2. Bilateral hip replacements in 2013 and 2015. 3. Hypertension. 4. Hyperlipidemia. 5. Hernia surgery in 1952. 6. Tinnitus. 7. History of elevated PSA with normal prostate biopsy in September [address] Garland. 8. Benign prostatic hypertrophy. 9. Gout. 10. Lumbar degenerative disk disease. Const: Vital Signs, click to edit/add: Vital Signs - 24 hr 02/24/22 14:35 02/24/22 14:44 Temperature 97.9 F Pulse Rate [Pulse Oximeter] 87 87 Respiratory Rate 20 20 Blood Pressure [Ri ght Upper Arm] 178/75 H Pulse Oximetry 96 97 Oxygen Delivery Me thod Room Air Room Air Patient is alert and oriented. No acute distress. Good eye contact. Nontoxic in appearance Heart with regular rate and rhythm. Lungs are clear in all lung magana. Abdomen is soft nontender. There is no evidence of erythema at the urinary meatus or along the foreskin. Uncircumcised penis. This is slightly retracted and there does not appear to be any purulent discharge from the urethra. No evidence of unusual swelling of the penis or scrotum. Lower extremities without edema. Documenting provider has reviewed patient's vital signs: yes Course Course Hospital Course: Patient noted to have had previous ED visit on February 07. It seems that his catheter had been placed at the clinic on February 01. On the February 07 visit patient had complained of some discomfort with the catheter. Urinalysis did show hematuria but no evidence of white cells. No culture was done at that time. A change of catheter was not done at that time. Today we will change his catheter as this has been bothersome to him since February 01. I have ordered viscous lidocaine to be used for comfort. Will also obtain urinalysis off the the new catheter once place. I did speak to patient about the risk of not being able to insert a new catheter and although uncommon it is something that I would like him to know about. He however does wish to proceed. Reevaluation(s) Reevaluation #1: nursing staff notes that we insertion of urinary catheter went without incident and was easy. However, patient then went to have a spasm and is requesting medication. Ibuprofen 600 mg is given. Vital Signs Vital signs: Initial Vital Signs Temperature 97.9 F 02/24/22 14:35 Temperature Source Temporal Artery Scan 02/24/22 14:35 Pulse Rate 87 02/24/22 14:35 Pulse Rhythm 02/24/22 14:35 Respiratory Rate 20 02/24/22 14:35 Pulse Oximetry 96 02/24/22 14:35 Oxygen Delivery Method 02/24/22 14:35 Vital Signs Temperature 97.9 F 02/24/22 14:35 Pulse Rate 87 02/24/22 14:35 Respiratory Rate 20 02/24/22 14:35 Pulse Oximetry 96 02/24/22 14:35 Oxygen Delivery Method 02/24/22 14:35 Temperature 97.9 F 02/24/22 14:35 Pulse Rate 87 02/24/22 14:44 Respiratory Rate 20 02/24/22 14:44 Blood Pressure 178/75 H 02/24/22 14:44 Pulse Oximetry 97 02/24/22 14:44 Oxygen Delivery Method 02/24/22 14:44 MDM - Male Genitourinary MDM Narrative Medical decision making narrative: 1. Catheter malfunction- New catheter is inserted. I am not entirely clear why patient is continuing to have the discomfort that he describes. There is no erythema at the urinary meatus, on the foreskin or the glans. Patient has no purulent discharge at this time. Ibuprofen seems to have helped this gentleman while in the emergency room. I would continue ibuprofen or Tylenol as needed. 2. UTI-patient does appear to have mild UTI. I do not think this is colonization at this time given normal UA on February 07. Will await urinary culture. Keflex 500 mg p.o. t.i.d. times 10 days ordered. 2. Disposition- Patient is discharged home. He is very worried that something will happen to prohibit him from seeing his urologist on TuesdayFebruary 26 as scheduled. I have impressed upon him the importance of returning to the emergency room should he experience fever vomiting increasing pain and as needed. Today he does not look toxic, has reassuring vital signs, is afebrile and has appropriate exam. I did not feel the need to draw further blood or order any radiological studies. I did state that if he actually has worsening symptoms these will likely be done here in the emergency room. Medical Records Attestation: I reviewed the patient's medical records. Lab Data Attestation: I reviewed the patient's lab results. Labs: Lab Results 02/24/22 Range/Units 16:20 Urine Color Yellow (Yellow) Urine Appearance Cloudy A (Clear) Urine pH 7.0 (5.0-8.5) Ur Specific Cameron >= 1.030 (1.000-1.030) Urine Protein 3+ A (Negative) Urine Glucose (UA) Negative (Negative) Urine Ketones Negative (Negative) Urine Blood 3+ A (Negative) Urine Nitrite Positive A (Negative) Urine Bilirubin Negative (Negative) Urine Urobilinogen 0.2 (0.2-1.0) Ur Leukocyte Esterase Trace A (Negative) Urine RBC >100 A (0-2) Urine WBC 25-50 A (0-5) Ur Squamous Epith Cells None (None-Few) Urine Bacteria Moderate A (None) Discharge Plan Discharge Clinical Impression: Malfunction of Wylie catheter, Urinary tract infection Patient Disposition: Home, Self-Care Condition: Improved Additional Instructions: start Keflex as your current antibiotic. If the urine culture shows that your UTI is resistant to this medication you will be called and we will change it. Ibuprofen or Tylenol may be used for discomfort. Return to the emergency room for fever, vomiting, increasing pain and as needed. Prescriptions: No Action metoprolol succinate 50 mg tablet extended release 24 hr PO simvastatin 80 mg tablet tamsulosin 0.4 mg capsule PO lisinopril 10 mg tablet allopurinol 300 mg tablet Follow Up/Referrals: Jose Mason MD [Primary Care Provider] - Stand Alone Forms: [employer] Info Instructions
[2022-02-24] MEDS: lidocaine HCL 2 % JELLY (TOP) STERILE 6 ML TOPICAL (15:30)
--- OUTSIDE RECORDS SUMMARY | 2022-02-24 15:31 | XMS_ITS | Clinical Summary ---
:1950 Author Organization [facility] [place] [address] Care Team Providers Name Role Phone Jayro Mcconnell MD Primary Care Provider Ab Rm MD Unavailable [phone] Allergies No known active allergies Medications Medication Sig Dispensed Refills Start Date End Date Status aspirin enteric coated Take 1 tablet 90 tablet 3 03/24/2018 Active (ECOTRIN) 325 mg by mouth once tabletIndications: daily with a Coronary artery disease meal. involving [place] coronary artery of [place] heart without angina pectoris nitroglycerin (Nitrostat) Place 1 Tablet 25 Tablet 6 2 Active 0.4 mg sublingual (0.4 mg) under tabletIndications: the tongue Coronary artery disease every 5 minutes involving [place] coronary if needed for artery of [place] heart Chest Pain. without angina pectoris allopurinoL (ZYLOPRIM) Take 1 Tablet 90 Tablet 3 12/16/2021 Active 300 mg tabletIndications: (300 mg) by Gout, unspecified [...] hypercholesterolemia mouth at bedtime. tamsulosin (Flomax) 0.4 Take 2 Capsules 180 Capsule 3 12/17/19 22 Active mg capsuleIndications: (0.8 mg) by Benign non-nodular mouth once prostatic hyperplasia daily after a with lower urinary tract meal. symptoms ketoconazole 2% topical Apply topically 60 g 0 02/19/2022 Active (NIZORAL) to affected creamIndications: Fungal area(s) two dermatitis times daily. Use until redness if gone. Reevaluate if not gone within 2 weeks. traMADoL (ULTRAM) 50 mg Take 1 Tablet 14 Tablet 0 02/19/2022 Active tabletIndications: (50 mg) by Difficult or painful mouth every 6 urination hours if needed for Pain. Active Problems Problem Noted Date Essential hypertension 08/16/2018 Seborrheic keratosis 07/22/2017 Overview: 1 by 1.5 cm flesh colored lesion on righ t shoulder. 6 by 15 mm as of 10/14/2017 Benign non-nodular prostatic hyperplasia with lower ur inary tract symptoms 07/21/2015 Coronary artery disease involving [place] coronary richard ry of [place] heart 05/19/2015 without angina pectoris Overview: Stent in mid left anterior descending in 2007. No history of UT. 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 08/13/2013 Encounters Date Type Specialty Care Team Description 02/19/2022 Office Visit Jayro Mcconnell MD Urin gemini Problem (has catheter with r ecent irritation ) 02/19/2022 Travel 02/04/2022 Office Visit Douglas Rodriguez Follo w Up (catheter) 02/04/2022 Travel 02/03/2022 Orders Only Douglas Rodriguez, <No s cans attached> 02/01/2022 Office Visit Douglas Rodriguez Urina ry Problem (Urgency, MD not urinating m uch, dribbles, frequ ency, x 2 day) 02/01/2022 Travel 01/05/2022 Office Visit Leanna Cramer Reche ck (Lesion of throat) [place] 01/05/2022 Travel 12/16/2021 Office Visit Jayro Mcconnell MD [facility] ANNUAL (subsequent) Vi sit (71 years) 12/16/2021 Travel 11/26/2021 Refill Jayro Mcconnell MD Refi ll Request (Simvastatin) from Last 3 Months Immunizations Name Administration Dates Next Due Amb Influenza, Inactivated AIIV4 (Age 65+ Years) 02/07/2020 Preserv Free COVID-19 vaccine (Moderna 100mcg/0.5mL) PF, MDV 08/07/2020, 07/10/2020 Influenza, Inactivated IIV3 (Age 65+ [...] stroke a t 73; smoker Hypertension Other UT Relation Name Status Comments Brother 1 Alive [...] Assigned at Date Recorded Not on file Travel History Travel Start Travel End [place] 01/10/2022 01/29/2022 COVID-19 Exposure Response Date Recorded In the last 10 days, have you been in contact No / Unsure 02/19/2022 10:01 AM CDT with someone who was confirmed or suspected to have Coronavirus/COVID-19? 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 Saturation 98% 02/19/2022 12:49 PM CDT Inhaled Oxygen Concentration - - Weight 73.8 kg (162 lb 12.8 oz) 02/19/2022 12:49 PM CDT Height 169.7 cm (5' 6.8) 02/04/2022 9:34 AM CDT Body Mass Index 25.65 02/04/2022 9:34 AM CDT Plan of Treatment Upcoming Encounters Date Type Specialty Care Team Description 04/15/2022 Office Visit Mindi Godinez MD [address] [facility], [place] [address] (Wo rk) 07/07/2022 Office Visit Leanna Cramer PA [address] [place], [place] [address] (Wo rk) Health Maintenance Due [...] 50+ 02/26/2013 Medical Devices Implanted Type Area Nsh Teacher Device Shelf Model / Identifier Expiration Serial / Lot Date Head Hip Od28mm +4 [employer] Delta C-Taper Alumina Cer - [id number] Right: [place] [id number]# / Implanted: Qty: 1 on 08/20/2013 at [facility] Hip [employer] / [id number] Head Hip Od28mm +4 [employer] Delta C-Taper Alumina Cer - [id number] Left: [place] [id number]# / Implanted: Qty: 1 on 06/05/2015 by Ramiro Puentes MD at [facility] Hip [employer] / [id number] Procedures Procedure Name Priority Date/Time Associated Diagnosis [...] REFLEXED PER CRITERIA (02/01/2022 10:15 AM CDT) [facility] Method Time Signature COLOR Yellow Yellow Color 02/01/2022 [facility] 10:20 AM CDT [facility] CLARITY Clear Clear 02/01/2022 [facility] Clarity 10:20 AM CDT [facility] SPECIFIC 1.020 1.010, 02/01/2022 [facility] GRAVITY,URINE 1.015, 10:20 AM [facility] [place] 1.020, 1.025 [facility] PH,URINE 5.5 6.0, 7.0, 02/01/2022 [facility] 8.0, 5.5, 10:20 AM T [place] 6.5, 7.5, CLINIC 8.5 UROBILINOGEN, Normal Normal EU/dl 02/[facility] PROTEIN, Negative Negative 02/01/2022 [facility] URINE mg/dL 10:20 AM T [facility] GLUCOSE, Negative Negative 02/01/2022 [facility] URINE mg/dL 10:20 AM T [facility] KETONES,URINE Negative Negative 02/01/2022 [facility] mg/dL 10:20 AM [facility] BILIRUBIN,URI Negative Negative 02/01/2022 [facility] NE 10:20 AM [facility] OCCULT Negative Negative 02/01/2022 [facility] BLOOD,URINE 10:20 AM T [facility] NITRITE Negative Negative 02/01/2022 [facility] 10:20 AM T [facility] LEUKOCYTE Negative Negative 02/01/2022 [facility] ESTERASE 10:20 AM T [facility] Specimen Anatomical Collection Method Collection Time Receive d Time (Source) Location / / Volume Laterality Urine URINE SPECIMEN / Non-Blood / 02/01/2022 10:15 022 Unknown Unknown AM CDT 10:18 AM CDT Douglas Rodriguez MD URINE Performing Organization Address City/State/ZIP Code Phon e Number [facility] [address] [place] [address] (ABNORMAL) CBC WITH AUTO DIFFERENTIAL (12/16/2021 11:03 AM CDT) [facility] Method Time Signature WHITE BLOOD 7.8 4.5 - 12/16/2021 [facility] COUNT 11.0 11:[address] [facility] CLINIC mm RED BLOOD COUNT 4.70 4.30 - 12/16/2021 [facility] 5.90 11:07 AM T [facility] mm CLINIC HEMOGLOBIN 14.6 13.5 - 12/16/2021 [facility] 17.5 g/dL 11:07 AM [facility] HEMATOCRIT 44.4 37.0 - 12/16/2021 [facility] 53.0 % 11:07 AM [facility] MCV 95 80 - 100 12/16/2021 [facility] fL 11:07 AM [facility] MCH 31.1 26.0 - 12/16/2021 [facility] 34.0 pg 11:07 AM [facility] MCHC 32.9 32.0 - 12/16/2021 [facility] 36.0 g/dL 11:07 AM [facility] RDW 14.2 11.5 - 12/16/2021 [facility] 15.5 % 11:07 AM [facility] PLATELET COUNT 218 140 - 440 12/16/2021 [facility]/ 11:07 AM [facility] MPV 11.3 (H) 6.5 - 12/16/2021 [facility] 11.0 fL 11:07 AM [facility] % NEUT 70.8 % 12/16/2021 [facility] 11:07 AM [facility] % LYMPH 20.0 % 12/16/2021 [facility] 11:07 AM [facility] % MONO 8.3 % 12/16/2021 [facility] 11:07 AM [facility] % EOS 0.6 % 12/16/2021 [facility] 11:07 AM [facility] % BASO 0.3 % 12/16/2021 [facility] 11:07 AM CDT [facility] ABSOLUTE 5.5 1.7 - 7.0 12/16/2021 [facility] NEUTROPHILS thou/cu 11:07 AM CDT [facility] ABSOLUTE 1.6 0.9 - 2.9 12/16/2021 [facility] LYMPHOCYTES thou/cu 11:07 AM CDT [facility] ABSOLUTE 0.6 <0.9 12/16/2021 [facility] MONOCYTES thou/cu 11:07 AM CDT [facility] ABSOLUTE 0.1 <0.5 12/16/2021 [facility] EOSINOPHILS thou/cu 11:07 AM CDT [facility] ABSOLUTE 0.0 <0.3 12/16/2021 [facility] BASOPHILS thou/cu 11:07 AM CDT [facility] Specimen Anatomical Collection Method / Collection Time Recei jerod Time (Source) Location / Volume Laterality Blood BLOOD SPECIMEN / Venipuncture / 12/16/2021 11:03 12/16 Unknown Unknown AM CDT 11:03 AM CDT Jayro Mcconnell MD HEMATOLOGY Performing Organization Address City/State/ZIP Code Phon e Number [facility] [address] [place] [address] LIPID PANEL W REFLEX MEASURED LDL (12/16/2021 11:03 AM CDT) [facility] Method Time Signature CHOLESTEROL,TOTAL 143 100 - [...] Jayro Mcconnell MD CHEMISTRY Performing Organization Address City/[facility] Phon e Number [facility] [address] [place] [address] LABORATORY-CENTRAL 2000 LABORATORY VITAMIN D 25 (DEFICIENCY) (12/16/2021 11:03 AM CDT) athologist Signature VITAMIN D 48.5 30.0 - 12/16/2021 [facility] TOTAL 80.0 ng/mL 6:36 PM CDT LABORATORY-CENT RAL LABORATORY Specimen Anatomical Collection Method / Collection Time Recei jerod Time (Source) Location / Volume Laterality Blood BLOOD SPECIMEN / Venipuncture / 12/16/2021 11:03 12/16 Unknown Unknown AM CDT 11:03 AM CDT Narrative [facility] [employer] LABORATORY-CENTRAL LABORAT ORY - 12/16/2021 6:36 PM CDT Deficiency: ? <20 ng/mL Insufficiency: ?20-29 ng/mL Sufficiency: ?30-80 ng/mL Possible Toxicity: ??>80 ng/mL Based on [place] [facility] recommend ations Jayro Mcconnell MD SEND OUTS Performing Organization Address [facility] Phon e Number [facility] [employer] [address] [place] [address] LABORATORY-CENTRAL 2000 LABORATORY URIC ACID (12/16/2021 11:03 AM CDT) athologist Signature URIC ACID 5.2 3.5 - 7.2 12/16/2021 [facility] [employer] mg/dL 6:14 PM CDT LABORATORY-CENTR AL LABORATORY Specimen Anatomical Collection Method / Collection Time Recei jerod Time (Source) Location / Volume Laterality Blood BLOOD SPECIMEN / Venipuncture / 12/16/2021 11:03 12/16 Unknown Unknown AM CDT 11:03 AM CDT Jayro Mcconnell MD CHEMISTRY Performing Organization Address City/State/ZIP Code Phon e Number [facility] [address] [place] [address] LABORATORY-CENTRAL 2000 LABORATORY ALT (SGPT) (12/16/2021 11:03 AM CDT) P athologist Signature ALT (SGPT) 20 8 - 45 IU/L 12/16/2021 [facility] 6:14 PM CDT LABORATORY-CENT RAL LABORATORY Specimen Anatomical Collection Method / Collection Time Recei jerod Time (Source) Location / Volume Laterality Blood BLOOD SPECIMEN / Venipuncture / 12/16/2021 11:03 12/16 Unknown Unknown AM CDT 11:03 AM CDT Jayro Mcconnell MD CHEMISTRY Performing Organization Address City/[facility] Phon e Number [facility] [employer] [address] [facility] [place] [address] LABORATORYCENTRAL 2000 LABORATORY (ABNORMAL) PSA TOTAL (DIAGNOSTIC) (12/16/2021 11:03 AM CDT) Analysis Performed At Patho logist Time Signature PSA TOTAL 8.13 (H) <4.00 12/16/2021 [facility] [employer] (DIAGNOSTIC) ng/mL 6:36 PM CDT LABORATORY-STAN TRAL LABORATORY Specimen Anatomical Collection Method / Collection Time Recei jerod Time (Source) Location / Volume Laterality Blood BLOOD SPECIMEN / Venipuncture / 12/16/2021 11:03 12/16 Unknown Unknown AM CDT 11:03 AM CDT Narrative [facility] LABORATORY-CENTRAL LABORAT ORY - 12/16/2021 6:36 PM CDT The percentage of Free PSA can be used to enhance the differentiation of prostate cancer from benign prostatic disease in subjects whose PSA levels are between 4.00 and 10.00 ng/mL. The % Free PSA will be reported only for PSA values between 4.00 and 10.00 ng/mL. The [employer] Sign Out Clerk PSA assay is a Chem iluminescent Microparticle Immunoassay(CMIA). Assay values obtained with different assay methods cannot be used interchangeably due to differences in assay method s and reagent specificity. ? Jayro Mcconnell MD CHEMISTRY Performing Organization Address City/State/ZIP Code Phon e Number [facility] [address] [place] [address] LABORATORY-CENTRAL 2000 LABORATORY (ABNORMAL) BASIC METABOLIC PANEL (12/16/2021 11:03 AM CDT) Analysis [facility] Time Signature SODIUM 143 135 - 145 12/16/2021 [facility] mmol/L 6:13 PM CDT LABORATORY-STAN TRAL LABORATORY POTASSIUM 4.5 3.5 - 5.0 12/16/2021 [facility] mmol/L 6:13 PM CDT LABORATORY-STAN TRAL LABORATORY CHLORIDE 108 98 - 110 12/16/2021 [facility] mmol/L 6:13 PM CDT LABORATORY-STAN TRAL LABORATORY CO2,TOTAL 25 21 - 31 12/16/2021 [facility] mmol/L 6:13 PM CDT LABORATORY-STAN TRAL LABORATORY ANION GAP 10 5 - 18 12/16/2021 [facility] 6:13 PM CDT LABORATORY-STAN TRAL LABORATORY GLUCOSE 103 (H) 65 - 100 12/16/2021 [facility] mg/dL 6:13 PM CDT LABORATORY-STAN TRAL LABORATORY CALCIUM 9.4 8.5 - 10.5 12/16/2021 [facility] mg/dL 6:13 PM CDT LABORATORY-STAN TRAL LABORATORY BUN 17 8 - 25 12/16/2021 [facility] mg/dL 6:13 PM CDT LABORATORY-STAN TRAL LABORATORY CREATININE 1.17 0.72 - 12/16/2021 [facility] 1.25 mg/dL 6:13 PM CDT LABORATORY-STAN TRAL LABORATORY BUN/CREAT RATIO 15 10 - 20 12/16/2021 [facility] 6:13 PM CDT LABORATORY-STAN TRAL LABORATORY eGFR 67 (L) >90 12/16/2021 [facility] mL/min/1.7 6:13 PM CDT LABORATORY-STAN 3m2 TRAL [...] Organization Address City/State/ZIP Code Phon e Number [facility] [address] 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 12/06/2008 [facility] DIRECTIVE, [facility], 11/08 Latest Code Status on File Code Status Date Activated Date Inactivated Comments Full Code 06/05/2015 2:06 PM 06/08/2015 8:05 PM Full Code 06/05/2015 5:15 AM 06/05/2015 2:06 PM Full Code 08/20/2013 4:24 PM 08/22/2013 7:11 PM Full Code 08/20/2013 7:59 AM 08/20/2013 4:24 PM Full Code 10/24/2007 4:57 PM 10/26/2007 3:31 PM 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
--- OUTSIDE RECORDS SUMMARY | 2022-02-24 15:31 | XMS_ITS | Encounter Summary ---
:1950 Author Care Team Providers Name Role Phone [facility] Primary Care Provider [phone] Reason for Visit Urinary Retention Assessment and [...] of Care Reminders Provider Appointments Established 10 02/26/2022 8:20AM Ernie Loya MD Lab None recorded. [...] Outflow Obstruction Ernie Loya MD: [address] [place] [address], Ph. History of Present Illness Note: <div>71 [...]
--- OUTSIDE RECORDS SUMMARY | 2022-02-24 15:31 | XMS_ITS ---
:1950 Author Care Team Providers Name Role Phone [facility] Primary Care Provider [phone] Allergies Code Code System Name Reaction Severity Status Onset NKDA ? Medications Name Status Start Date Stop Date ? ? allopurinol 300 mg tablet Active ? Not av ailable aspirin 81 mg capsule Active ? Not availa ble Take 1 capsule every day by oral route. lisinopril 10 mg tablet Active ? Not avai lable metoprolol succinate ER 50 mg tablet,extended release 24 Active ? Not available hr nitroglycerin 0.4 mg sublingual tablet Active ? Not available oxycodone 5 mg tablet Completed ? 02/10/2022 simvastatin 80 mg tablet Active ? Not saji ilable tamsulosin 0.4 mg capsule Active ? Not av ailable Problems None recorded. Procedures None recorded. Results Lab Results None recorded. Past Encounters 02/10/2022 Retention of Urine; Benign Prostatic Hyp erplasia with Outflow Obstruction Ernie Loya MD: [address] [place] [address] [place] [address], Ph. Social History Tobacco Smoking Status Never Smoker Vaccine List None recorded. Plan of Care Reminders Provider Appointments None recorded. ? ? Lab None recorded. ? ? Referral None recorded. ? ? Procedures None recorded. ? ? Surgeries None recorded. ? ? Imaging None recorded. ? ? Vitals Height Weight BMI 5 ft 7 in 160 lbs 25.1 kg/m2
[2022-02-24] MEDS: IBUPROFEN 200 MG TABLET 600 MG PO (15:55)
[2022-02-24 16:27] LABS: Appearance Urine Cloudy (Clear); Bilirubin Urine Negative (Negative); Blood Urine 3+ (Negative); Color Urine Yellow (Yellow); Glucose Urine Negative (Negative); Ketones Urine Negative (Negative); Leukocyte Esterase Urine Trace (Negative); Nitrite Urine Positive (Negative); Protein Urine 3+ (Negative); Specific Gravity Urine >= 1.030 (1.000-1.030); Urobilinogen Urine 0.2 (0.2-1.0)
[2022-02-24 16:52] LABS: Bacteria Urine Moderate; RBC Urine >100 (0-2); WBC Urine 25-50 (0-5)
== END 2022-02-24 17:49 | disposition home or self-care (01) ==
PROVIDERS: Emergency Provider Family Medicine; PCP Family Medicine
DX: T83.091A Other mechanical complication of indwelling urethral catheter, initial encounter (principal); N39.0 Urinary tract infection, site not specified
CPT/HCPCS: 51702; 81001; 87086; 87186; 99283; 99284; A9270

== ENCOUNTER 2022-02-27 11:52 | Emergency (ER) | payer MEDICARE, SELFPAY ==
[2022-02-27 12:07] VITALS: BP 170/90; PULSE 83; RESP 18; TEMP 36.8; O2SAT 99; BMI 24.4
--- NOTE | 2022-02-27 12:27 | ED.GENADULT ---
HPI - General Adult General Chief complaint: Urogenital Problems, Male Stated complaint: Urinary retention Time Seen by Provider: 02/27/22 11:53 Source: patient Mode of arrival: ambulatory Limitations: no limitations History of Present Illness HPI narrative: 71 year male coming in today complaining of inability to void. States that he has had an indwelling catheter for about a month secondary to BPH, had removed yesterday by urology. States that since the removal of the Wylie catheter he has been able to void very small amounts at a time, about every 90 minutes. This morning it got worse and he has been unable to void. He has suprapubic pressure. No fevers or chills. He did have a UTI recently diagnosed 3 days ago, urine culture came back, the antibiotic he is currently on is not covering the the growth. Related Data Home Medications Medication Instructions Recorded Confirmed allopurinol 300 mg tablet mg 02/07/22 lisinopril 10 mg tablet mg 02/07/22 metoprolol succinate 50 mg mg PO 02/07/22 tablet,extended release 24 hr simvastatin 80 mg tablet mg 02/07/22 tamsulosin 0.4 mg capsule mg PO 02/07/22 Previous Rx's Medication Instructions Recorded ciprofloxacin HCl 500 mg tablet 500 mg PO BID 7 days #14 tabs 02/27/22 Allergies Allergy/AdvReac Type Severity Reaction Status Date / Time No Known Drug Allergies Allergy Verified 02/27/22 12:07 Review of Systems Status of ROS: Reports: 10 or more systems reviewed and unremarkable except as noted in History and below [facility] Medical History Gout Hypertension Urinary retention Surgical History No significant past surgical history Social History Smoking Status: Never smoker Do you use any of these nicotine containing products: None Second hand tobacco smoke exposure: No How often do you have a drink containing alcohol: never How often do you have six or more drinks on one occasion: Never AUDIT-C Alcohol total score: 0 Non-prescribed substance use: denies use service: No Exam Narrative: Exam Narrative: Well-nourished well-developed patient in no acute distress. Alert and oriented. Answers questions appropriately. Mood and affect are appropriate. Thoughts are goal oriented and rational. No tangential or magical thinking noted. Patient speaks in full sentences without needing to catch their breath. HEENT: Normocephalic atraumatic. Pupils are equally round reactive to light. Extraocular muscles are intact. Conjunctivae are moist without any icterus noted. Abdomen: Soft and nontender nondistended with normal bowel sounds. Fullness in the supra pubic region Extremities: Bilateral lower extremities are without edema. Normal DP and PT pulses. Skin: Well perfused without any obvious rashes. Const: Vital Signs, click to edit/add: Vital Signs - 24 hr 02/27/22 12:07 Temperature 98.3 F Pulse Rate [Right Pulse Oximeter] 83 Respiratory Rate 18 Blood Pressure [Ri ght Upper Arm] 170/90 H Pulse Oximetry 99 Oxygen Delivery Me thod Room Air Course Course Hospital Course: Bladder scan showing 500 mL of urine. Wylie catheter inserted without difficulty per nursing. Vital Signs Vital signs: Initial Vital Signs Temperature 98.3 F 02/27/22 12:07 Temperature Source Temporal Artery Scan 02/27/22 12:07 Pulse Rate 83 02/27/22 12:07 Respiratory Rate 18 02/27/22 12:07 Blood Pressure 170/90 H 02/27/22 12:07 Blood Pressure Mean 116 02/27/22 12:07 Blood Pressure Position Sitting 02/27/22 12:07 Pulse Oximetry 99 02/27/22 12:07 Oxygen Delivery Method 02/27/22 12:07 Vital Signs Temperature 98.3 F 02/27/22 12:07 Pulse Rate 83 02/27/22 12:07 Respiratory Rate 18 02/27/22 12:07 Blood Pressure 170/90 H 02/27/22 12:07 Pulse Oximetry 99 02/27/22 12:07 Oxygen Delivery Method 02/27/22 12:07 Temperature 98.3 F 02/27/22 12:07 Pulse Rate 83 02/27/22 12:07 Respiratory Rate 18 02/27/22 12:07 Blood Pressure 170/90 H 02/27/22 12:07 Pulse Oximetry 99 02/27/22 12:07 Oxygen Delivery Method 02/27/22 12:07 Medical Decision Making MDM Narrative Medical decision making narrative: Inability to void. Wylie was reinserted. Will switch his antibiotic to Cipro. Recommended to follow-up with urology in 7-10 days. Discharge Plan Discharge Clinical Impression: Urinary tract infection, Urinary retention Patient Disposition: Home, Self-Care Condition: Improved Additional Instructions: Stop the current antibiotic that you are using. 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 Follow-up with Urology in 7-10 days. Return to the ER if you develop increasing abdominal pain, fevers or vomiting. Prescriptions: New ciprofloxacin HCl 500 mg tablet 500 mg PO BID 7 Days Qty: 14 0RF No Action metoprolol succinate 50 mg tablet extended release 24 hr PO simvastatin 80 mg tablet tamsulosin 0.4 mg capsule PO lisinopril 10 mg tablet allopurinol 300 mg tablet Follow Up/Referrals: Jose Mason MD [Staff Physician] - Stand Alone Forms: Food on the Table Info Instructions
--- NOTE | 2022-02-27 12:38 | PC.NURSE ---
glydo lidocaine jelly inserted prior to cath placement
--- OUTSIDE RECORDS SUMMARY | 2022-02-27 12:51 | XMS_ITS ---
:1950 Author Care Team Providers Name Role Phone [facility] Primary Care Provider [phone] Allergies Code Code System Name Reaction Severity Status Onset NKDA ? Medications Name Status Start Date Stop Date ? ? allopurinol 300 mg tablet Active ? Not av ailable aspirin 81 mg capsule Active ? Not availa ble Take 1 capsule every day by oral route. cephalexin 500 mg capsule Active ? Not av ailable finasteride 5 mg tablet Active ? Not avai lable Take 1 tablet every day by oral route as directed for 30 days. ketoconazole 2 % topical cream Active ? N ot available lisinopril 10 mg tablet Active ? Not avai lable metoprolol succinate ER 50 mg tablet,extended release 24 Active ? Not available hr nitroglycerin 0.4 mg sublingual tablet Active ? Not available oxycodone 5 mg tablet Completed ? 02/10/2022 simvastatin 80 mg tablet Active ? Not saji ilable tamsulosin 0.4 mg capsule Active ? Not av ailable tramadol 50 mg tablet Active ? Not availa ble Problems None recorded. Procedures None recorded. Results Lab Results None recorded. Past Encounters 02/26/2022 Retention of Urine Ernie Loya MD: [address] [place] [address], Ph. 02/26/2022 Benign Prostatic Hyperplasia with Outflo w Obstruction; Retention of Urine Ernie Loya MD: [address] [place] [address], Ph. 02/10/2022 Retention of Urine; Benign Prostatic Hyp erplasia with Outflow Obstruction Ernie Loya MD: [address] [place] [address], Ph. Social History Tobacco Smoking Status Never Smoker Vaccine List None recorded. Plan of Care Patient Instructions RTC prn Call FLORENCE Abbott, next week if st ill with any concerns or issues. LK Reminders Provider Appointments None recorded. ? ? Lab None recorded. ? ? Referral None recorded. ? ? Procedures None recorded. ? ? Surgeries None recorded. ? ? Imaging None recorded. ? ? Vitals 02/26/2022 08:20AM ESTABLISHED 10 Height Weight BMI 5 ft 7 in 160 lbs 25.1 kg/m2 02/10/2022 09:20AM NEW PATIENT 10 Height Weight BMI 5 ft 7 in 160 lbs 25.1 kg/m2
--- OUTSIDE RECORDS SUMMARY | 2022-02-27 12:51 | XMS_ITS | Encounter Summary ---
:1950 Author Care Team Providers Name Role Phone [facility] Primary Care Provider [phone] Reason for Visit Urinary Retention Assessment and [...] available. Plan of Care Reminders Provider Appointments None recorded. ? ? Lab None recorded. ? ? Referral None recorded. ? ? Procedures None recorded. ? ? Surgeries None recorded. ? ? Imaging None recorded. ? ? Medications Name Start Date ? ? allopurinol 300 mg tablet ? aspirin 81 mg capsule ? Take 1 capsule every day by oral route. cephalexin 500 mg capsule ? finasteride 5 mg tablet ? Take 1 tablet every day by oral route as directed for 30 days. ketoconazole 2 % topical cream ? lisinopril 10 mg tablet ? metoprolol succinate ER 50 mg tablet,extended release 24 hr ? nitroglycerin 0.4 mg sublingual tablet ? simvastatin 80 mg tablet ? tamsulosin 0.4 mg capsule ? tramadol 50 mg tablet ? Medications Administered None recorded. Vitals Height Weight BMI 5 ft 7 in 160 lbs 25.1 kg/m2 Results Lab Results None recorded. Allergies Code Code System Name Reaction Severity Onset NKDA ? ? ? Problems None recorded. Procedures None recorded. Vaccine List None recorded. Social History Tobacco Smoking Status Never Smoker What was the date of your most recent tobacco screening? Family History Relation Problem Onset Age of Age Notes Father No current problems or (No Information) N/A ( No Notes) disability Mother No current problems or (No Information) N/A ( No Notes) disability Functional Status Unknown. Past Encounters 02/10/2022 Retention of Urine; Benign Prostatic Hyp erplasia with Outflow Obstruction Ernie Loya MD: [address] [place] [address], Ph. History of Present Illness Note: <div>71 [...]
--- OUTSIDE RECORDS SUMMARY | 2022-02-27 12:51 | XMS_ITS | Clinical Summary ---
:1950 Author Organization [employer] [place] [address] Care Team Providers Name Role Phone Jayro Mcconnell MD Primary Care Provider Ab Rm MD Unavailable [phone] Allergies No known active allergies Medications Medication Sig Dispensed Refills Start Date End Date Status aspirin enteric coated Take 1 tablet 90 tablet 3 03/24/2018 Active (ECOTRIN) 325 mg by mouth once tabletIndications: daily with a Coronary artery disease meal. involving [place] coronary artery of [place] heart without angina pectoris nitroglycerin (Nitrostat) Place 1 Tablet 25 Tablet 6 2 Active 0.4 mg sublingual (0.4 mg) under tabletIndications: the tongue Coronary artery disease every 5 minutes involving [place] coronary if needed for artery of [place] heart Chest Pain. without angina pectoris allopurinoL [...] tract symptoms 07/21/2015 Coronary artery disease involving [place] coronary richard ry of [place] heart 05/19/2015 without angina pectoris Overview: Stent in mid left anterior descending in 2007. No history of ND. Idiopathic gout 05/19/2015 CKD (chronic kidney disease) [...] on 10/19/2007 -same pain while walking around [employer] 10/20/2007 -same pain 2 episodes [...] Travel 12/16/2021 Office Visit Jayro Mcconnell MD [facility] ANNUAL (subsequent) Vi sit (71 years) 12/16/2021 Travel from Last 3 Months Immunizations Name Administration [...] stroke a t 73; smoker Hypertension Other ND Relation Name Status Comments Brother 1 Alive [...] file Travel History Travel Start Travel End [place] 01/10/2022 01/29/2022 COVID-19 Exposure Response Date Recorded [...] CDT Respiratory Rate 16 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 Oxygen Saturation 98% 02/19/2022 12:49 PM CDT Inhaled Oxygen Concentration - - Weight 73.8 kg (162 lb 12.8 oz) 02/19/2022 12:49 PM CDT Height 169.7 cm (5' 6.8) 02/04/2022 9:34 AM CDT Body Mass Index 25.65 02/04/2022 9:34 AM CDT Plan of Treatment Upcoming Encounters Date Type Specialty Care Team Description 04/15/2022 Office Visit Mindi Godinez MD [address] [place], [place] [address] (Wo rk) 07/07/2022 Office Visit Leanna Cramer PA [address] [place], [place] [address] (Wo rk) Health Maintenance [...] 50+ 02/26/2013 Medical Devices Implanted Type Area Rollway Man Device Shelf Model / Identifier Expiration Serial / Lot Date Head Hip Od28mm +4 [employer] Delta C-Taper Alumina Cer - [id number] Right: [place] 6570-0-228# / Implanted: Qty: 1 on 08/20/2013 at [facility] Hip [employer] / [id number] Head Hip Od28mm +4 [employer] Delta C-Taper Alumina Cer - [id number] Left: [place] [id number]# / Implanted: Qty: 1 on 06/05/2015 by Ramiro Puentes MD at [facility] [employer] / [id number] Procedures Procedure Name Priority Date/Time Associated Diagnosis [...] REFLEXED PER CRITERIA (02/01/2022 10:15 AM CDT) [facility] Method Time Signature COLOR Yellow Yellow Color 02/01/2022 [facility] 10:20 AM CDT [facility] CLARITY Clear Clear 02/01/2022 [facility] Clarity 10:20 AM CDT [facility] SPECIFIC 1.020 1.010, 02/01/2022 [facility] GRAVITY,URINE 1.015, 10:20 AM T NILES 1.020, 1.025 [facility] PH,URINE 5.5 6.0, 7.0, 02/01/2022 [facility] 8.0, 5.5, 10:[address] [facility] 6.5, 7.5, CLINIC 8.5 UROBILINOGEN, Normal Normal EU/dl [facility]20 AM [facility] PROTEIN, Negative Negative 02/01/2022 [facility] URINE mg/dL 10:20 AM [facility] GLUCOSE, Negative Negative 02/01/2022 [facility] URINE mg/dL 10:20 AM [facility] KETONES,URINE Negative Negative 02/01/2022 [facility] mg/dL 10:20 AM [facility] BILIRUBIN,URI Negative Negative 02/01/2022 [facility] NE 10:20 AM [facility] OCCULT Negative Negative 02/01/2022 [facility] BLOOD,URINE 10:20 AM [facility] NITRITE Negative Negative 02/01/2022 [facility] 10:20 AM T [facility] LEUKOCYTE Negative Negative 02/01/2022 [facility] ESTERASE 10:20 AM [facility] Specimen Anatomical Collection Method Collection Time Receive d Time (Source) Location / / Volume Laterality Urine URINE SPECIMEN / Non-Blood / 02/01/2022 10:15 022 Unknown Unknown AM CDT 10:18 AM CDT Douglas Rodriguez MD URINE Performing Organization Address City/State/ZIP Code Phon e Number [facility] [address] [place] [address] (ABNORMAL) CBC WITH AUTO DIFFERENTIAL (12/16/2021 11:03 AM CDT) [facility] Method Time Signature WHITE BLOOD 7.8 4.5 - 12/16/2021 [facility] COUNT 11.0 11:07 AM [facility] mm RED BLOOD COUNT 4.70 4.30 - 12/16/2021 [facility] 5.90 11:07 AM T [facility] CLINIC HEMOGLOBIN 14.6 13.5 - 12/16/2021 [facility] 17.5 g/dL 11:07 AM [facility] HEMATOCRIT 44.4 37.0 - 12/16/2021 [facility] 53.0 % 11:07 AM [facility] MCV 95 80 - 100 12/16/2021 [facility] fL 11:07 AM [facility] MCH 31.1 26.0 - 12/16/2021 [facility] 34.0 pg 11:07 AM [facility] MCHC 32.9 32.0 - 12/16/2021 [facility] 36.0 g/dL 11:07 AM [facility] RDW 14.2 11.5 - 12/16/2021 [facility] 15.5 % 11:07 AM [facility] PLATELET COUNT 218 140 - 440 12/16/2021 [facility]/ 11:07 AM [facility] MPV 11.3 (H) 6.5 - 12/16/2021 [facility] 11.0 fL 11:07 AM [facility] % NEUT 70.8 % 12/16/2021 [facility] 11:07 AM [facility] % LYMPH 20.0 % 12/16/2021 [facility] 11:07 AM [facility] % MONO 8.3 % 12/16/2021 [facility] 11:07 AM [facility] % EOS 0.6 % 12/16/2021 [facility] 11:07 AM [facility] % BASO 0.3 % 12/16/2021 [facility] 11:07 AM [facility] ABSOLUTE 5.5 1.7 - 7.0 12/16/2021 [facility] NEUTROPHILS thou/cu 11:07 AM CDT [facility] ABSOLUTE 1.6 0.9 - 2.9 12/16/2021 [facility] LYMPHOCYTES thou/cu 11:07 AM CDT [facility] ABSOLUTE 0.6 <0.9 12/16/2021 [facility] MONOCYTES thou/cu 11:07 AM CDT [facility] ABSOLUTE 0.1 <0.5 12/16/2021 [facility] EOSINOPHILS thou/cu 11:07 AM CDT [facility] ABSOLUTE 0.0 <0.3 12/16/2021 [facility] BASOPHILS thou/cu 11:07 AM CDT [facility] Specimen Anatomical Collection Method / Collection Time Recei jerod Time (Source) Location / Volume Laterality Blood BLOOD SPECIMEN / Venipuncture / 12/16/2021 11:03 12/16 Unknown Unknown AM CDT 11:03 AM CDT Jayro Mcconnell MD HEMATOLOGY Performing Organization Address City/State/ZIP Code Phon e Number [facility] [address] [place] [address] LIPID PANEL W REFLEX MEASURED LDL (12/16/2021 11:03 AM CDT) [facility] Method Time Signature CHOLESTEROL,TOTAL 143 100 - [...] LABORATORY-STAN TRAL LABORATORY PROVIDER ORDERED RANDOM 12/16/2021 [facility] H STATUS 6:14 PM CDT LABORATORY-STAN TRAL LABORATORY Specimen Anatomical Collection Method / Collection Time Recei jerod Time (Source) Location / Volume Laterality Blood BLOOD SPECIMEN / Venipuncture / 12/16/2021 11:03 12/16 Unknown Unknown AM CDT 11:03 AM CDT Jayro Mcconnell MD CHEMISTRY Performing Organization Address [facility] Phon e Number [facility] [address] [place] [id number] LABORATORY-CENTRAL [address] LABORATORY VITAMIN D 25 (DEFICIENCY) (12/16/2021 11:03 AM CDT) athologist Signature VITAMIN D 48.5 30.0 - 12/16/2021 [facility] TOTAL 80.0 ng/mL 6:36 PM CDT LABORATORY-CENT RAL LABORATORY Specimen Anatomical Collection Method / Collection Time Recei jerod Time (Source) Location / Volume Laterality Blood BLOOD SPECIMEN / Venipuncture / 12/16/2021 11:03 12/16 Unknown Unknown AM CDT 11:03 AM CDT Narrative [facility] LABORATORY-CENTRAL LABORAT ORY - 12/16/2021 6:36 PM CDT Deficiency: ? <20 ng/mL Insufficiency: ?20-29 ng/mL Sufficiency: ?30-80 ng/mL Possible Toxicity: ??>80 ng/mL Based on [facility] recommend ations Jayro Mcconnell MD SEND OUTS Performing Organization Address [facility] Phon e Number [facility] [address] [place] [id number] LABORATORY-CENTRAL 2000 LABORATORY URIC ACID (12/16/2021 11:03 AM CDT) athologist Signature URIC ACID 5.2 3.5 - 7.2 12/16/2021 [facility] mg/dL 6:14 PM CDT LABORATORY-CENTR AL LABORATORY Specimen Anatomical Collection Method / Collection Time Recei jerod Time (Source) Location / Volume Laterality Blood BLOOD SPECIMEN / Venipuncture / 12/16/2021 11:03 12/16 Unknown Unknown AM CDT 11:03 AM CDT Jayro Mcconnell MD CHEMISTRY Performing Organization Address City/State/ZIP Code Phon e Number [facility] [address] [place] [address] LABORATORY-CENTRAL 2000 LABORATORY ALT (SGPT) (12/16/2021 11:03 AM CDT) P athologist Signature ALT (SGPT) 20 8 - 45 IU/L 12/16/2021 [facility] 6:14 PM CDT LABORATORY-CENT RAL LABORATORY Specimen Anatomical Collection Method / Collection Time Recei jerod Time (Source) Location / Volume Laterality Blood BLOOD SPECIMEN / Venipuncture / 12/16/2021 11:03 12/16 Unknown Unknown AM CDT 11:03 AM CDT Jayro Mcconnell MD CHEMISTRY Performing Organization Address City/State/ZIP Code Phon e Number [facility] [address] [place] [address] LABORATORY-CENTRAL 2000 LABORATORY (ABNORMAL) PSA TOTAL (DIAGNOSTIC) (12/16/2021 11:03 AM CDT) Analysis Performed At Patho logist Time Signature PSA TOTAL 8.13 (H) <4.00 12/16/2021 [facility] (DIAGNOSTIC) ng/mL 6:36 PM CDT LABORATORY-STAN TRAL LABORATORY Specimen Anatomical Collection Method / Collection Time Recei jerod Time (Source) Location / Volume Laterality Blood BLOOD SPECIMEN / Venipuncture / 12/16/2021 11:03 12/16 Unknown Unknown AM CDT 11:03 AM CDT Narrative [facility] LABORATORY-CENTRAL LABORAT ORY - 12/16/2021 6:36 PM CDT The percentage of Free PSA can be used to enhance the differentiation of prostate cancer from benign prostatic disease in subjects whose PSA levels are between 4.00 and 10.00 ng/mL. The % Free PSA will be reported only for PSA values between 4.00 and 10.00 ng/mL. The [employer] PSA assay is a Chem iluminescent Microparticle Immunoassay(CMIA). Assay values obtained with different assay methods cannot be used interchangeably due to differences in assay method s and reagent specificity. ? Jayro Mcconnell MD CHEMISTRY Performing Organization Address City/State/ZIP Code Phon e Number [facility] [address] [place] [address] LABORATORY-CENTRAL 2000 LABORATORY (ABNORMAL) BASIC METABOLIC PANEL (12/16/2021 11:03 AM CDT) [facility] Signature SODIUM 143 135 - 145 12/16/2021 [facility] mmol/L 6:13 PM CDT LABORATORY-STAN TRAL LABORATORY POTASSIUM 4.5 3.5 - 5.0 12/16/2021 [facility] mmol/L 6:13 PM CDT LABORATORY-STAN TRAL LABORATORY CHLORIDE 108 98 - 110 12/16/2021 [facility] mmol/L 6:13 PM CDT LABORATORY-STAN TRAL LABORATORY CO2,TOTAL 25 21 - 31 12/16/2021 [facility] mmol/L 6:13 PM CDT LABORATORY-STAN TRAL LABORATORY ANION GAP 10 5 - 18 12/16/2021 [facility] 6:13 PM CDT LABORATORY-STAN TRAL LABORATORY GLUCOSE 103 (H) 65 - 100 12/16/2021 [facility] mg/dL 6:13 PM CDT LABORATORY-STAN TRAL LABORATORY CALCIUM 9.4 8.5 - 10.5 12/16/2021 [facility] mg/dL 6:13 PM CDT LABORATORY-STAN TRAL LABORATORY BUN 17 8 - 25 12/16/2021 [facility] mg/dL 6:13 PM CDT LABORATORY-STAN TRAL LABORATORY CREATININE 1.17 0.72 - 12/16/2021 [facility] 1.25 mg/dL 6:13 PM CDT LABORATORY-STAN TRAL LABORATORY BUN/CREAT RATIO 15 10 - 20 12/16/2021 [facility] 6:13 PM CDT LABORATORY-STAN TRAL LABORATORY eGFR 67 (L) >90 12/16/2021 [facility] mL/min/1.7 6:13 PM CDT LABORATORY-STAN 3m2 TRAL [...] Organization Address City/State/ZIP Code Phon e Number [facility] [address] 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 Directive 12/06/2008 [facility] CARE DIRECTIVE, [facility], 11/08 Latest Code Status on File Code Status Date Activated Date Inactivated Comments Full Code 06/05/2015 2:06 PM 06/08/2015 8:05 PM Full Code 06/05/2015 5:15 AM 06/05/2015 2:06 PM Full Code 08/20/2013 4:24 PM 08/22/2013 7:11 PM Full Code 08/20/2013 7:59 AM 08/20/2013 4:24 PM Full Code 10/24/2007 4:57 PM 10/26/2007 3:31 PM Care Teams Analytics Analyst Relationship Specialty Start Date End Date Jayro Mcconnell MD PCP - General 07/08/09 [address] [place] [address] Ab Rm MD Urology Surgery - Urology 08/23/11
--- OUTSIDE RECORDS SUMMARY | 2022-02-27 12:51 | XMS_ITS | Encounter Summary ---
:1950 Author Care Team Providers Name Role Phone [facility] ([place] Primary Care Provider [phone] Reason for Visit Urinary Retention Assessment and Plan Assessment Note 71 Y/O MALE, HX BPH, URINARY RETENTION. INITIALLY CATHED FOR 800CC. FAILED INITIAL VOIDING TRIAL. CYSTO SHOWED TRILOBAR PROSTATE, TRABACULATED BLADDER , SPASMS WITH VOIDING TRIAL. REVIEWED RECORDS FROM [facility] TOV. PLAN ADD FINASTERIDE. CONTINUE FLOMAX 0. 4 MG DAY. HE WANTS THE TOMPKINS OUT AND IF ANY PROBLEMS WILL RETURN. ALSO DISCUSSED SELF CATHING PROGRAM. I DO BELIEVE HE WILL EVENTUALLY NEED LASER TURP. 1. Benign prostatic hyperplasia with ou tflow obstruction ? finasteride 5 mg tablet 2. Retention of urine Discussion Note: None recorded.Patient educational handouts: No [...] Notes) disability Functional Status Unknown. Past Encounters 02/26/2022 Retention of Urine Ernie Loya MD: [address] [place] [address], Ph. 02/26/2022 Benign Prostatic Hyperplasia with Outflo w Obstruction; Retention of Urine Ernie Loya MD: [address] [place] [address], Ph. 02/10/2022 Retention of Urine; Benign Prostatic Hyp erplasia with Outflow Obstruction Ernie Loya MD: [address] [place] [address], Ph. History of Present Illness Note: <div>71 YOM HERE FOR URINARY RETENTION. HX OF ELEVATED PSA. PROSTATE BX [place] [address] HAGEN. NEGATIVE PATHOLOGY. CATHETER PLACED A WEEK AGO, SEEN IN ER ON WEDNESDAY 02/07, cathed FOR 800CC . FAILED TOV. ON FLOMAX . NOCTURIA X 1</div><div>
</div><div>HERE FOR CYSTO ,VOIDING TRIAL.</div> Review of Systems ? Comprehensive General Adult [...] edule with lifestyle needs Physical Exam ? Notes: <div>NO CHANGES</div>
--- OUTSIDE RECORDS SUMMARY | 2022-02-27 12:51 | XMS_ITS | Encounter Summary ---
:1950 Author Care Team Providers Name Role Phone [facility] ([place] Primary Care Provider [phone] Reason for Visit Nurse Visit: Bladder Scan Pt had TOV this am, and failed it. Was n ot able to urinate @ all. Wants to come in for PVR. LK Assessment and Plan Assessment Note Pt had failed TOV this am, and just wan ts to make sure everything is okay. LK 1. Retention of urine PVR done.Shows 101ml. Pt states he has urinated since he got home this am. Large amount and a couple of small amounts. Angulo d to go to [place] ER for Urinary Retention about a month ago, so is a lit tle gun shy.Pt also states he has been having some bleeding since Cysto with Dr Loya. I told him that this is normal. Pt does have abx sample to take. Dr Loya said for him to take it easy for a few days and drink lots of water. FLORENCE Chung/BSN Discussion Note: None recorded.Patient educational handouts: No information available. Plan of Care Patient Instructions RTC prn [...] tablet ? Medications Administered None recorded. Vitals None recorded. Results Lab Results None recorded. Allergies Code [...] of Urine Ernie Loya MD: [address] [place] [address], Ph. 02/26/2022 Benign Prostatic Hyperplasia with Outflo w Obstruction; Retention of Urine Ernie Loya MD: [address] [place] [address], Ph. 02/10/2022 Retention of Urine; Benign Prostatic Hyp erplasia with Outflow Obstruction Ernie Loya MD: [address] [place] [address], Ph. History of Present Illness None recorded. Review of Systems None recorded. Physical Exam None recorded.
== END 2022-02-27 13:00 | disposition home or self-care (01) ==
LOC: ED 12:32
PROVIDERS: Emergency Provider Family Medicine; PCP Family Medicine
DX: N39.0 Urinary tract infection, site not specified (principal); R33.9 Retention of urine, unspecified
CPT/HCPCS: 51702; 99283; 99284

== ENCOUNTER → 2022-02-28 16:01 | Outpatient (CLI) | payer MEDICARE, SELFPAY ==
[2022-02-28] MEDS: lidocaine HCL 2 % JELLY (TOP) STERILE 6 ML UR (16:01)
[2022-02-28 16:05] VITALS: BP 148/88; PULSE 68; RESP 18; TEMP 36.6; O2SAT 97
--- OUTSIDE RECORDS SUMMARY | 2022-02-28 16:08 | XMS_ITS | Encounter Summary ---
:1950 Author Care Team Providers Name Role [facility] [phone] Reason for Visit Urinary Retention Assessment and [...] with Outflow Obstruction Ernie Loya MD: [address] [place] [address], Ph. History of Present Illness Note: <div>71 [...]
--- OUTSIDE RECORDS SUMMARY | 2022-02-28 16:08 | XMS_ITS ---
:1950 Author Care Team Providers Name Role Phone [facility] Primary Care Provider [phone] Allergies Code Code System Name Reaction Severity [...] Urine Ernie Loya MD: [address] [place] [address], Ph. 02/26/2022 Benign Prostatic Hyperplasia with Outflo w Obstruction; Retention of Urine Ernie Loya MD: [address] [place] [address], Ph. 02/10/2022 Retention of Urine; Benign Prostatic Hyp erplasia with Outflow Obstruction Ernie Loya MD: [address] [place] [address], Ph. Social History Tobacco Smoking Status Never [...]
--- OUTSIDE RECORDS SUMMARY | 2022-02-28 16:08 | XMS_ITS | Encounter Summary ---
:1950 Author Care Team Providers Name Role Phone [facility] ([place]) Primary Care Provider [phone] Reason for Visit Urinary Retention Assessment and Plan Assessment Note 71 Y/O MALE, HX BPH, URINARY RETENTION. INITIALLY CATHED FOR 800CC. FAILED INITIAL VOIDING TRIAL. CYSTO SHOWED TRILOBAR PROSTATE, TRABACULATED BLADDER , SPASMS WITH VOIDING TRIAL. REVIEWED RECORDS FROM [facility] TOV. PLAN ADD FINASTERIDE. CONTINUE FLOMAX [...] Urine Ernie Loya MD: [address] [place] [address], Ph. 02/26/2022 Benign Prostatic Hyperplasia with Outflo w Obstruction; Retention of Urine Ernie Loya MD: [address] [place] [address], Ph. 02/10/2022 Retention of Urine; Benign Prostatic Hyp erplasia with Outflow Obstruction Ernie Loya MD: [address] [place] [address], Ph. History of Present Illness Note: <div>71 [...]
--- OUTSIDE RECORDS SUMMARY | 2022-02-28 16:08 | XMS_ITS | Encounter Summary ---
:1950 Author Care Team Providers Name Role Phone [facility] Primary Care Provider [phone] Reason for Visit Nurse Visit: Bladder Scan [...] small amounts. Angulo d to go to [place] ER for Urinary Retention about a month [...] of Urine Ernie Loya MD: [address] [place] [address], Ph. 02/26/2022 Benign Prostatic Hyperplasia with Outflo w Obstruction; Retention of Urine Ernie Loya MD: [address] [place] [address], Ph. 02/10/2022 Retention of Urine; Benign Prostatic Hyp erplasia with Outflow Obstruction Ernie Loya MD: [address] [place] [address], Ph. History of Present Illness None recorded. Review of Systems None recorded. Physical Exam None recorded.
--- OUTSIDE RECORDS SUMMARY | 2022-02-28 16:09 | XMS_ITS | Clinical Summary ---
:1950 Author Organization [facility] [place] [address] Care Team Providers Name Role Phone Jayro Mcconnell MD Primary Care Provider Ab Rm MD Unavailable [phone] Allergies No known active allergies Medications Medication Sig Dispensed Refills Start Date End Date Status aspirin enteric coated Take 1 tablet 90 tablet 3 03/24/2018 Active (ECOTRIN) 325 mg by mouth once tabletIndications: daily with a Coronary artery disease meal. involving [place] coronary artery of [place] heart without angina pectoris nitroglycerin (Nitrostat) Place 1 Tablet 25 Tablet 6 2 Active 0.4 mg sublingual (0.4 mg) under tabletIndications: the tongue Coronary artery disease every 5 minutes involving [place] coronary if needed for artery of [place] heart Chest Pain. without angina pectoris allopurinoL [...] tract symptoms 07/21/2015 Coronary artery disease involving [place] coronary richard ry of [place] heart 05/19/2015 without angina pectoris Overview: Stent [...] on 10/19/2007 -same pain while walking around [place] l 10/20/2007 -same pain 2 episodes [...] Travel 12/16/2021 Office Visit Jayro Mcconnell MD [facility] ANNUAL (subsequent) Vi sit (71 years) [...] file Travel History Travel Start Travel End [place] 01/10/2022 01/29/2022 COVID-19 Exposure Response Date Recorded [...] CDT Respiratory Rate 16 06/08/2015 7:57 AM FLOAT NURSE Oxygen Saturation 98% 02/19/2022 12:49 PM CDT Inhaled Oxygen Concentration - - Weight 73.8 kg (162 lb 12.8 oz) 02/19/2022 12:49 PM CDT Height 169.7 cm (5' 6.8) 02/04/2022 9:34 AM CDT Body Mass Index 25.65 02/04/2022 9:34 AM CDT Plan of Treatment Upcoming Encounters Date Type Specialty Care Team Description 04/15/2022 Office Visit Mindi Godinez MD [address], [place] [address] (Wo rk) 07/07/2022 Office Visit Leanna Cramer PA [address], [place] [address] (Wo rk) Health Maintenance [...] 50+ 02/26/2013 Medical Devices Implanted Type Area Ear Muff Assembler Device Shelf Model / Identifier Expiration Serial / Lot Date Head Hip Od28mm +4 [employer] Delta C-Taper Alumina Cer - [id number] Right: [place] 6570-0-228# / Implanted: Qty: 1 on 08/20/2013 at [facility] Hip Somewhere / [id number] Head Hip Od28mm +4 [employer] Delta C-Taper Alumina Cer - [id number] Left: [place] [id number]# / Implanted: Qty: 1 on 06/05/2015 by Ramiro Puentes MD at [facility] Hip Somewhere / [id number] Procedures Procedure Name Priority Date/Time Associated Diagnosis [...] REFLEXED PER CRITERIA (02/01/2022 10:15 AM CDT) [facility] Method Time Signature COLOR Yellow Yellow Color 02/01/2022 [facility] 10:20 AM CDT [facility] CLARITY Clear Clear 02/01/2022 [facility] Clarity 10:20 AM CDT [facility] SPECIFIC 1.020 1.010, 02/01/2022 [facility] GRAVITY,URINE 1.015, 10:20 AM T [facility] 1.020, 1.025 [facility] PH,URINE 5.5 6.0, 7.0, 02/01/2022 [facility] 8.0, 5.5, 10:20 AM [facility] 6.5, 7.5, CLINIC 8.5 UROBILINOGEN, Normal Normal EU/dl [facility] AM [facility] PROTEIN, Negative Negative 02/01/2022 [facility] URINE mg/dL 10:20 AM [facility] GLUCOSE, Negative Negative 02/01/2022 [facility] URINE mg/dL 10:20 AM [facility] KETONES,URINE Negative Negative 02/01/2022 [facility] mg/dL 10:20 AM [facility] BILIRUBIN,URI Negative Negative 02/01/2022 [facility] NE 10:20 AM [facility] OCCULT Negative Negative 02/01/2022 [facility] BLOOD,URINE 10:20 AM [facility] NITRITE Negative Negative 02/01/2022 [facility] 10:20 AM T [facility] LEUKOCYTE Negative Negative 02/01/2022 [facility] ESTERASE 10:20 AM [facility] Specimen Anatomical Collection Method Collection Time Receive d Time (Source) Location / / Volume Laterality Urine URINE SPECIMEN / Non-Blood / 02/01/2022 10:15 022 Unknown Unknown AM CDT 10:18 AM CDT Douglas Rodriguez MD URINE Performing Organization Address City/State/ZIP Code Phon e Number [facility] [address] [place] [address] (ABNORMAL) CBC WITH AUTO DIFFERENTIAL (12/16/2021 11:03 AM CDT) [facility] Method Time Signature WHITE BLOOD 7.8 4.5 - 12/16/2021 [facility] COUNT 11.0 11:07 AM [facility] mm RED BLOOD COUNT 4.70 4.30 - 12/16/[address] [facility] 5.90 11:07 AM T [facility] CLINIC HEMOGLOBIN 14.6 13.5 - 12/16/[address] [facility] 17.5 g/dL 11:07 AM [facility] HEMATOCRIT 44.4 37.0 - 12/16/[address] [facility] 53.0 % 11:07 AM [facility] MCV 95 80 - 100 12/16/2021 [facility] fL 11:07 AM [facility] MCH 31.1 26.0 - 12/16/[address] [facility] 34.0 pg 11:07 AM [facility] MCHC 32.9 32.0 - 12/16/[address] [facility] 36.0 g/dL 11:07 AM [facility] RDW 14.2 11.5 - 12/16/[address] [facility] 15.5 % 11:07 AM [facility] PLATELET COUNT 218 140 - 440 12/16/2021 [facility]/ 11:07 AM [facility] MPV 11.3 (H) 6.5 - 12/16/[address] [facility] 11.0 fL 11:07 AM [facility] % NEUT 70.8 % 12/16/[address] [facility] 11:07 AM [facility] % LYMPH 20.0 % 12/16/[address] [facility] 11:07 AM [facility] % MONO 8.3 % 12/16/[address] [facility] 11:07 AM [facility] % EOS 0.6 % 12/16/[address] [facility] 11:07 AM [facility] % BASO 0.3 % 12/16/[address] [facility] 11:07 AM [facility] ABSOLUTE 5.5 1.7 - 7.0 12/16/2021 [facility] NEUTROPHILS thou/cu 11:07 AM CDT Good [...] Organization Address City/State/ZIP Code Phon e Number [facility] [address] [place] [address] LIPID PANEL W REFLEX MEASURED LDL (12/16/2021 11:03 AM CDT) [facility] Method Time Signature CHOLESTEROL,TOTAL 143 100 [...] Jayro Mcconnell MD CHEMISTRY Performing Organization Address [facility] [address]/[facility] Phon e Number [facility] [address] [place] [address] LABORATORY-CENTRAL 2000 LABORATORY VITAMIN D 25 (DEFICIENCY) (12/16/2021 11:03 AM CDT) athologist Signature VITAMIN D 48.5 30.0 - 12/16/2021 [facility] TOTAL 80.0 ng/mL 6:36 PM CDT [...] ng/mL Possible Toxicity: ??>80 ng/mL Based on [place] [facility] recommend ations Jayro Mcconnell MD SEND OUTS Performing Organization Address [facility] [address]/[facility] Phon e Number [facility] [address] [place] [id number] LAB[facility]ATORY[facility]CENTRAL 2000 LABORATORY URIC ACID (12/16/2021 11:03 AM CDT) athologist Signature URIC ACID 5.2 3.5 - 7.2 12/16/2021 [facility] mg/dL 6:14 PM CDT LABORATORY-CENTR AL LABORATORY Specimen Anatomical Collection Method / Collection Time Recei jerod Time (Source) Location / Volume Laterality Blood BLOOD SPECIMEN / Venipuncture / 12/16/2021 11:03 12/16 Unknown Unknown AM CDT 11:03 AM CDT Jayro Mcconnell MD CHEMISTRY Performing Organization Address City/State/ZIP Code Phon e Number [facility] [address] [place] [address] LABORATORY-CENTRAL 2000 LABORATORY ALT (SGPT) (12/16/2021 11:03 [...] Organization Address City/State/ZIP Code Phon e Number [facility] [address] [place] [address] LABORATORY-CENTRAL 2000 LABORATORY (ABNORMAL) PSA TOTAL (DIAGNOSTIC) (12/16/2021 11:03 AM CDT) Analysis Performed At Patho logist Time Signature PSA TOTAL 8.13 (H) <4.00 12/16/2021 [facility] (DIAGNOSTIC) ng/mL 6:36 PM CDT LABORATORY-STAN TRAL [...] between 4.00 and 10.00 ng/mL. The [employer] PSA assay is a Chem iluminescent Microparticle Immunoassay(CMIA). Assay values obtained with different assay methods cannot be used interchangeably due to differences in assay method s and reagent specificity. ? Jayro Mcconnell MD CHEMISTRY Performing Organization Address City/State/ZIP Code Phon e Number [facility] [address] [place] [address] LABORATORY-CENTRAL 2000 LABORATORY (ABNORMAL) BASIC METABOLIC PANEL (12/16/2021 11:03 AM CDT) [facility] Signature SODIUM 143 135 - 145 12/16/2021 [facility] mmol/L 6:13 PM CDT LABORATORY-STAN TRAL LABORATORY POTASSIUM 4.5 3.5 - 5.0 12/16/2021 [facility] mmol/L 6:13 PM CDT LABORATORY-STAN TRAL LABORATORY CHLORIDE 108 98 - 110 12/16/2021 [facility] mmol/L 6:13 PM CDT LABORATORY-STAN TRAL LABORATORY CO2,TOTAL 25 21 - 31 12/16/2021 [facility] [employer] mmol/L 6:13 PM CDT LABORATORY-STAN TRAL LABORATORY ANION GAP 10 5 - 18 12/16/2021 [facility] [employer] 6:13 PM CDT LABORATORY-STAN TRAL LABORATORY GLUCOSE 103 (H) 65 - 100 12/16/2021 [facility] [employer] mg/dL 6:13 PM CDT LABORATORY-STAN TRAL LABORATORY CALCIUM 9.4 8.5 - 10.5 12/16/2021 [facility] [employer] mg/dL 6:13 PM CDT LABORATORY-STAN TRAL LABORATORY BUN 17 8 - 25 12/16/2021 [facility] [employer] mg/dL 6:13 PM CDT LABORATORY-STAN TRAL LABORATORY CREATININE 1.17 0.72 - 12/16/2021 [facility] 1.25 mg/dL 6:13 PM CDT LABORATORY-STAN TRAL LABORATORY BUN/CREAT RATIO 15 10 - 20 12/16/2021 [facility] [employer] [employer] [facility] 6:13 PM CDT LABORATORY-STAN TRAL LABORATORY eGFR 67 (L) >90 12/16/2021 [facility] mL/min/1.7 6:13 PM CDT LABORATORY-STAN 3m2 TRAL [...] Address City/State/ZIP Code Phon e Number [facility] [address] [place] [address] LABORATORY-CENTRAL 2000 LABORATORY from Last 3 Months Insurance Payer Benefit Plan / Subscriber ID Effective Dates Phone Addre ss Type Group [employer] MR ESTEVEZ MEDICARE [id number] 2019-Present [address] [place] [address] Advance Directives Documents on File Type Date Recorded Patient Optical Sales Associate Explanati on Healthcare Directive 12/06/2008 [facility] CARE DIRECTIVE, [facility], 11/08 Latest Code Status on File Code Status Date Activated Date Inactivated Comments Full Code 06/05/2015 2:06 PM 06/08/2015 8:05 PM Full Code 06/05/2015 5:15 AM 06/05/2015 2:06 PM Full Code 08/20/2013 4:24 PM 08/22/2013 7:11 PM Full Code 08/20/2013 7:59 AM 08/20/2013 4:24 PM Full Code 10/24/2007 4:57 PM 10/26/2007 3:31 PM Care Teams Size Mixer Relationship Specialty Start Date End Date Jayro Mcconnell MD PCP - General 07/08/09 [address] [place] [address] Ab Rm MD Urology Surgery - Urology 08/23/11
--- NOTE | 2022-02-28 16:43 | PC.NURSE ---
urinary catheter not draining and leaking around insertion site, pt catheter irrigated with no return, catheter removed and replaced with 18fr coude, balloon inflated easily and draining clear urine immediately
== END | disposition home or self-care (01) ==
LOC: ED 16:07 → OP CLINIC 16:14
PROVIDERS: PCP Family Medicine; Visit Provider Family Medicine
DX: T83.038A Leakage of other urinary catheter, initial encounter (principal); N40.1 Benign prostatic hyperplasia with lower urinary tract symptoms; R33.8 Other retention of urine; Z02.83 Encounter for blood-alcohol and blood-drug test
CPT/HCPCS: 51702; 80307

== ENCOUNTER 2024-03-23 07:19 | Outpatient (CLI) | payer MEDICARE, SELFPAY ==
--- OUTSIDE RECORDS SUMMARY | 2024-03-23 07:21 | XMS_ITS | Referral Summary ---
Author Organization [facility] Address [address] [place] [address] Care Team Providers Care Accounting Clerks Supervisor Name Role Phone Jayro Mcconnell MD Primary Care Provider [phone] Allergies No known active allergies Medications allopurinol (ZYLOPRIM) 300 MG tablet Take 300 mg by mouth daily Active finasteride (PROSCAR) 5 MG tablet Take 5 mg by mouth daily Active lisinopril (ZESTRIL) 20 MG tablet Take 20 mg by mouth daily Active metoprolol succinate ER (TOPROL XL) 50 MG 24 hr tablet Take 50 mg by mouth daily Active nitroGLYcerin (NITROSTAT) 0.[address] 0.4 mg under the tongue every 5 minutes as needed for chest pain For chest pain place 1 tablet under the tongue every 5 minutes for 3 doses. If symptoms persist 5 minutes after 1st dose call 911. Active simvastatin (ZOCOR) 80 MG tablet Take by mouth At Bedtime Active tamsulosin (FLOMAX) 0.4 MG capsule Take 0.4 mg by mouth daily Active traMADol (ULTRAM) 50 MG tablet Take 50 mg by mouth every 6 hours as needed for severe pain (7-10) Active Social History Tobacco Use Types Packs/Day Years Used Date Smoking Tobacco: Never Smokeless Tobacco: Never Tobacco Cessation:Counseling Given: Not Answered Alcohol Use Standard Drinks/Week Comments Yes 0 (1 standard drink = 0.6 oz pur e alcohol) rare Adolescent Education Answer Date Record ed Getting School Help Needed Not on file 01/28 Sex and Gender Information Value Date Recorded Sex Assigned at Not on file Legal Sex Male 12:57 PM [employer] Gender Identity Not on file Sexual Orientation Not on file Last Filed Vital Signs Vital Sign Reading Time Taken Comments Blood Pressure 172/99 05/13/2022 1:06 PM [employer] Pulse 91 05/13/2022 1:06 PM [employer] Temperature 36.1 ??C (97 ??F) 05/13/2022 12:00 PM [employer] Respiratory Rate 16 05/13/2022 1:06 PM [employer] Oxygen Saturation 97% 05/13/2022 1:06 PM [employer] Inhaled Oxygen Concentration - - Weight 74 kg (163 lb 1.6 oz) 05/13/2022 7:23 AM [employer] Height 170.2 cm (5' 7) 05/13/2022 7:23 AM [employer] Body Mass Index 25.55 05/13/2022 7:23 AM [employer] Plan of Treatment Not on file Insurance [employer] MEDICARE Care Teams Accounting Clerks Supervisor Relationship Specialty Start Date End Date Jayro Mcconnell MD PCP - General Family Medicine 04/19/22
--- OUTSIDE RECORDS SUMMARY | 2024-03-23 07:21 | XMS_ITS | Clinical Summary ---
Author Organization [facility] Address [address] [place] [address] Care Team Providers Care Sugarcane Planter Name Role Phone Jayro Mcconnell MD Primary Care Provider [phone] Allergies No known active allergies Medications allopurinol [...] on file Legal Sex Male 12:57 PM [place] Gender Identity Not on file Sexual Orientation Not on file Last Filed Vital Signs Vital Sign Reading Time Taken Comments Blood Pressure 172/99 05/13/2022 1:06 PM [place] Pulse 91 05/13/2022 1:06 PM [place] Temperature 36.1 ??C (97 ??F) 05/13/2022 12:00 PM [place] Respiratory Rate 16 05/13/2022 1:06 PM [place] Oxygen Saturation 97% 05/13/2022 1:06 PM [place] Inhaled Oxygen Concentration - - Weight 74 kg (163 lb 1.6 oz) 05/13/2022 7:23 AM [place] Height 170.2 cm (5' 7) 05/13/2022 7:23 AM [place] Body Mass Index 25.55 05/13/2022 7:23 AM [place] Plan of Treatment Health Maintenance Due Date Last Done Comments ADVANCE CARE PLANNING 1950 ANNUAL REVIEW OF HM ORDERS 1950 CT COLONOGRAPHY 1952 FIT 1952 FLEX SIG 1950 GLUCOSE 1952 LIPID 1952 sDNA (Cologuard) 1950 COLONOSCOPY 1962 COLORECTAL CANCER SCREENING 1962 HEPATITIS C SCREENING 1970 FALL RISK ASSESSMENT 2017 MEDICARE ANNUAL WELLNESS VISIT 12/16/2022 12/16/2021, 11/19/2020 PHQ-2 (once per calendar year) 2023 COVID-19 Vaccine ( season) 2024 03/15/2022, 09/07/2021, 03/12/2021, Additional history exists INFLUENZA VACCINE (#1) 2024 , 02/07/2020, 07/10/2019 DTAP/TDAP/TD IMMUNIZATION (2 - Td or Tdap) 04/23/2026 04/23/2016, 06/28/2005 RSV VACCINE (1 - 1-dose 75+ series) 10/23/2027 Pneumococcal Vaccine: 65+ Years Completed 10/18/2019, 10/16/2018 ZOSTER IMMUNIZATION Completed 09/04/2020, 05/14/2020, 02/26/2013 HPV IMMUNIZATION Aged Out No longer e ligible based on patient's age to complete this topic MENINGITIS IMMUNIZATION Aged Out No l onger eligible based on patient's age to complete this topic RSV MONOCLONAL ANTIBODY Aged Out No l onger eligible based on patient's age to complete this topic Insurance UC[employer] MEDICARE Care Teams Sugarcane Planter Relationship Specialty Start Date End Date Jayro Mcconnell MD PCP - General Family Medicine 04/19/22
--- OUTSIDE RECORDS SUMMARY | 2024-03-23 07:22 | XMS_ITS | Data Portability ---
Author Organization [facility], [facility] Address [address] [place] [address] Care Team Providers Care Social Worker Palliative Care Name Role Phone [facility] Primary Care Provider Assessment Encounter Date Assessment Date Assessment LastModified by Organization Details LastModified Time 05/14/2022 05/14/2022 71 Y/O MALE. HX URINARY RETENTION, S/P LASER ASSISTED TURP FOR A LARGE OBSTRUCTING PROSTATE. HE IS FROM [place] AND WAS SEEN TO ASSESS SOME HEMATURIA. TOMPKINS IRRIGATED CLEAR ,NO CLOTS AND REASSURED. PLAN RTC SCHEDULED NEXT WEEK FOR VOIDING TRIAL Not available 05/14/2022 15:22:46 05/18/2022 05/18/2022 Here for TOV/Fill and Pull [place]. Not available 05/18/2022 08:31:47 06/08/2022 06/08/2022 71 Y/O MALE, HX OF URINARY RETENTION ,BPH, S/P LASER TURP. SOMEWHAT SLOW RECOVERY. ANXIOUS. ALL QUESTIONS ANSWERED PLAN RTC 3 MO. PVR,U/A Not available 06/08/2022 11:10:16 Plan of Treatment Reminders Order Date Submit Date Provider Last Modified By Organization Details Last Modified Time Details Appointments None record ed. Lab None record ed. Referral None record ed. Procedures None record ed. Surgeries None record ed. Imaging None record ed. Medication Orders None record ed. Patient TargetsNo targets recorded. Patient Instructions Encounter Date Encounter Id Patient Instructions Last Modified By Organization Details Last Modified Time 04/21/2022 [id number] / TURP [email or web address] Not available 04/21 16:08:42 05/18/2022 [id number] RTC or ER if unable to void again within 5-6 hours. RTC [address] Loya for post-op visit. PATRIC Not available 05/18/2022 11:29:05 Reason for Referral None Reported. Results Created Date Observation Date Name Description Value Unit Range Abnormal Flag Note LastModifiedBy Organization Detail LastModifiedTime 04/05/20 22 04/05/2022 URINE CULTU RE final report MICROB IOLOGY RESULT S abnormal SOURC E Zenia teriz ed-Fo thang KNOWN ALLER GIES NA TREAT MENT NA MEDIA PLATE D AT: Media plate d on 04/05 @ 4:44 PM COLON Y COUNT 50,00 0-100 ,000 cfu/m l RESUL T Klebs iella (Ente robac ter) aerog tresa (Isol ate 1) RESUL T Citro bacte r freun dii (Isol ate 2) Sensi tivit y Debora sis [place] te 1 [place] te 2 ----- ----- ----- ----- ----- ----- ----- - ----- ----- ----- - AMOX/ K CLAV >16/8 R >16/8 R AMP/S ULBAC BATES <=8/4 R <= 8/4 R AMPIC ILLIN >16 R >16 R AZTRE ONAM <=4*S <=4*S CEFTA ZIDIM E <=1*S <=1*S CEFTR IAXON E <=1*S <=1*S CEFUR OXIME <=4 R 16 R CIPRO FLOXA ELIZABETH <=1*S <=1*S LEVOF LOXAC IN <=2*S <=2*S NITRO FURAN TOIN <=32* S <=32* S PIP/T AZO <=16* S <=16* S TETRA CYCLI NE <=4*S <= 4*S TRIME TH/BROUSSARD LFA <=2/3 8*S <=2/3 8*S TRIME THOPR IM <=8*S <=8*S Orga nisms that are susce ptibl e to tetra cycli ne are gener ally also susce ptibl e to doxyc yclin e and minoc yclin e. Any subst ituti on of drugs which have not been teste d for sensi tivit y shoul d be consi dered based on appro jerod usage of the drugs . Infor abbi n on doxyc yclin e and minoc yclin e can be found in the Physi ruth' s Desk Refer ence [facility]. S= Susce ptibl e;I= Inter media te;R= Resis tant; ESBL= Resis tance due to confi rmed ESBL This lab resul t is being provi ded to you and your provi miguel at the same time in compl iance with the Centu ry Cures Act. Your provi miguel may not have had time to revie w and make recom menda tions based on the resul t. Pleas e allow up to one week for provi miguel revie w. Not Available [facility] [address] [place] [address] [address], [place], [address], 04/07/2022 11:18:33 Result Notes None recorded. Procedures Surgical History Date Name Laterality Status Provider Name and Address Organization Details Recorded Time 05/18/19 23 Fill and Pull/Voiding Trial/TOV completed Tata Benavides [facility] 05/18/2022 11:27:09 05/14/19 23 Bladder Irrigation [facility] 05/14/2022 12:42:13 04/21/20 22 Urethral Catheter Change completed Remedios Radford [facility] 04/21/2022 16:08:24 04/05/20 22 Urethral Catheter Change completed Remedios Radford [facility] 04/05/2022 15:40:40 02/27/20 22 Bladder Scan completed Nallely Francis [facility] 02/26/2022 15:45:15 02/27/20 22 Tompkins Catheter Removal completed Zion Villeda [facility] 02/26/2022 09:43:25 02/27/20 22 CystoscopyMale completed Ernie Loya MD [address], [place], [address], [facility] 02/26/2022 09:48:14 Imaging Results None recorded. Procedure Notes None recorded. Medical Equipment None Reported. Allergies No known drug allergies Medications Name Sig Start Date Stop Date Status Note LastModified by Organization Details LastModified Time metoprolol succinate ER 50 mg tablet,exte nded release 24 hr active Not Available Not Available Not Available lisinopril 20 mg tablet active Not Available Not Available Not Available simvastatin 80 mg tablet active Not Available Not Available Not Available ciprofloxac in 500 mg tablet TAKE 1 TABLET BY MOUTH TWICE DAILY FOR 7 DAYS active Not Available Not Available No t Available sulfamethox azole 800 mg-trimetho prim 160 mg tablet active Not Available Not Available Not Available tramadol 50 mg tablet active Not Available Not Available No t Available tamsulosin 0.4 mg capsule active Not Available Not Available Not Available cephalexin 500 mg capsule active Not Available Not Available Not Available lisinopril 10 mg tablet active Not Available Not Available Not Available nitroglycer in 0.4 mg sublingual tablet active Not Available Not Available Not Available allopurinol 300 mg tablet active Not Available Not Available Not Available ketoconazol e 2 % topical cream active Not Available Not Available Not Available finasteride 5 mg tablet TAKE 1 TABLET BY MOUTH EVERY DAY DIRECTED active Not Available Not Available No t Available oxycodone 5 mg tablet 02/10 completed Not Available Not Available Not Available nitrofurant oin monohydrate /macrocryst als 100 mg capsule active Not Available Not Available Not Available aspirin 81 mg capsule Take 1 capsule every day by oral route. active Not Available Not Available No t Available Vitals Date Recorded Body height Body mass index (BMI) Body weight Provider Name and Address Organization Details Last Updated DateTime 05/14/2022 170.18 cm 25.1 kg/m2 89691.78 g Ernie Loya MD [address],[facility] [address], [place], [address], [facility] 05/14/2022 12:28:29 Date Recorded Body height Body mass index (BMI) Body weight Provider Name and Address Organization Details Last Updated DateTime 06/08/2022 170.18 cm 25.1 kg/m2 72121.78 g Zion Villeda [facility] 06/08/2022 10:47:55 Social History Question Answer Notes LastModified by Organizat ion Details LastModified Time Tobacco Smoking Status Never Smoker Ernie Loya MD [address], [place], [address], [facility] 02/10/2022 10:19:14 What Was The Date Of Your Most Recent Tobacco Screening? 06/08/2022 ssamb Information not available 06/08/2022 Sex: Unknown Functional Status None recorded. Mental Status None recorded. Family History Relationship Description Onset Age of this Age Resolved Age Notes LastModified by Organization Details LastModified Time Father No current problems or disability [email or web address] Not available 02/10 10:18:43 Mother No current problems or disability [email or web address] Not available 02/10 10:18:43 Medical History Condition Response Heart Disease Y High Blood Pressure Y High Cholesterol Y Past Encounters Encounter ID Performer Location Encounter Start Date Encounter Closed Date Diagnosis/Indication Diagnosis SNOMED-CT Code Diagnosis ICD10 Code [id number] MD PERRY Boateng_Carole [address] [place] [address] 02/10/2022 10:02:12 02/12/2022 14:10:16 Retention of urine 144562294 R33.9 Benign pro static hyperplasia with outflow obstruction 779611309 N40.1 [id number] MD PERRY Boateng_Carole [address] [place] [address] 02/26/2022 08:54:12 03/03/2022 11:30:04 Benign prostatic hyperplasia with outflow obstruction 152848449 N40.1 Retention of urine 69326 4002 R33.9 [id number] MD PERRY Boateng_Carole [address] [place] [address] 02/26/2022 14:45:58 03/03/2022 11:32:02 Retention of urine 826327489 R33.9 [id number] MD PERRY Boateng_Carole [address] [place] [address] 03/05/2022 10:31:23 03/10/2022 13:12:50 Benign prostatic hyperplasia with outflow obstruction 622049895 N40.1 Acute rete ntion of urine 987881086 R33.8 [id number] Remedios Radford [facility] [address] [place] [address] 04/05/2022 14:52:43 04/07/2022 11:11:56 Urinary tract infectious disease 40829346 N39.0 Retention of urine 25607 4002 R33.9 [id number] Ernie Loya MD [facility] [address] [place] [address] 04/09/2022 12:15:57 04/21/2022 09:06:14 Difficulty managing urinary catheter 544015985 Z74.1 [id number] Remedios Radford [facility] [address] [place] [address] 04/21/2022 15:34:47 04/23/2022 16:59:00 Benign prostatic hyperplasia with outflow obstruction 751414189 N40.1 [id number] Ernie Loya MD [facility] [address] [place] [address] 05/14/2022 12:10:22 05/19/2022 10:20:42 Benign prostatic hyperplasia with outflow obstruction 131632510 N40.1 [id number] Tata Benavides [facility] [address] [place] [address] 05/18/2022 10:41:07 05/21/2022 12:55:48 Retention of urine 202162942 R33.9 [id number] Ernie Loya MD [facility] [address] [place] [address] 06/08/2022 10:47:10 06/11/2022 11:26:45 Benign prostatic hyperplasia with outflow obstruction 358224138 N40.1 Retention of urine 11553 4002 R33.9 Health Concerns Section Related Observation LastModified by Organization Detai ls LastModified Time None Recorded Concern Status LastModified by Organization Details LastModified Time None Recorded Advance Directives Directive None Recorded Payers Encounter Date Sequence Insurance Name Policy Number Policy Vance Covered Member ID Vance Member ID Guarantor Name 04/09/2022 1 [employer] - DOS ON OR AFTER 19 (MEDICARE REPLACEMENT/ ADVANTAGE - HMO) [id number] Armani Sullivannes [id number] Armani Eugene Syd 04/21/2022 1 [employer] - DOS ON OR AFTER 19 (MEDICARE REPLACEMENT/ ADVANTAGE - HMO) [id number] Armani Sullivannes [id number] Armani Eugene Syd 05/14/2022 1 [employer] - DOS ON OR AFTER 19 (MEDICARE REPLACEMENT/ ADVANTAGE - HMO) [id number] 5 Armani Sullivannes [id number] Armain Eugene Syd 05/18/2022 1 [employer] - DOS ON OR AFTER 19 (MEDICARE REPLACEMENT/ ADVANTAGE - HMO) [id number] Armani Eugene Syd [id number] Armani Eugene Syd 06/08/2022 1 [employer] - DOS ON OR AFTER 19 (MEDICARE REPLACEMENT/ ADVANTAGE - HMO) [id number] Armani Sullivannes [id number] Armani Velarde Notes Date Note Type Note Provider Name and Address Organization Details Recorded Time 04/09/2022 text/html Pt here to have catheter looked at, having some urine bypassing Ernie Loya MD [address] [place] [address],[address], [place], [address], [facility] 04/11/2022 11:03:17 05/14/2022 text/html 71 YOM HERE FOR URINARY RETENTION. HX OF ELEVATED PSA. PROSTATE BX [place] [address] HAGEN. NEGATIVE PATHOLOGY. CATHETER PLACED A WEEK AGO, SEEN IN ER ON WEDNESDAY 02/07, CATH FOR 800CC . FAILED TOV. ON FLOMAX . NOCTURIA X 1S/P LASER TURP ON 05/13/22. HERE TODAY FOR GROSS HEMATURIA AFTER SURGERY. URINE IS BETTER TODAY. IRRIGATED CLEAR Ernie Loya MD [address] [place] [address],[address], [place], [address], [facility] 05/14/2022 15:23:07 06/08/2022 text/html 71 YOM HERE FOR URINARY RETENTION F/U. HX OF ELEVATED PSA. PROSTATE BX [place] [address] HAGEN. NEGATIVE PATHOLOGY. CATHETER PLACED A WEEK AGO, SEEN IN ER ON WEDNESDAY 02/07, CATH FOR 800CC . FAILED TOV. ON FLOMAX . NOCTURIA X 1S/P LASER TURP ON 05/13/22. OVERALL IMPROVED FLOW, MILDDYSURIA, FREQ. This visit was conducted by telephone due to the COVID-19 crisis. Prior to conducting our telephone visit, the patient was apprised of the risks, benefits and alternatives to telephone visits including but not limited to poor audio quality, interrupted visits due to technological limitations, delays in medical evaluation and treatment due to deficiencies or failures of equipment, failure of security protocols resulting in a breach of privacy of personal medical information and a lack of access to complete medical records resulting in not fully informed decisions. Also, because of the COVID-19 pandemic, it was not possible for the patient to sign the privacy regulations, HIPAA release and assignment of benefits forms. The patient was given the opportunity to ask questions about these policies and gave verbal acknowledgement and approval of these policies as well as to hold this meeting by telephone. Lastly, the patient agreed to allowing their medication history to be pulled from a national pharmacy database to facilitate and coordinate their care. Ernie Loya MD [address] [place] [address],[address], [place], [address], [facility] 06/08/2022 11:10:40
--- OUTSIDE RECORDS SUMMARY | 2024-03-23 07:22 | XMS_ITS | Clinical Summary ---
Author Organization [facility] Address [place], [place] [address] Care Team Providers Care Regrader Name Role Phone Jayro Mcconnell MD Primary Care Provider +1- [phone] Ab Rm MD Unavailable + [phone] Allergies No known active allergies Medications Medication Sig Dispensed Refills Start Date End Date Status aspirin enteric coated (ECOTRIN) 325 mg tabletIndications:Coronar y artery disease involving solomon coronary artery of solomon heart without angina pectoris Take 1 tablet by mouth once daily with a meal. 90 tablet 3 8 Active polyethylene glycol-electrolyte (GOLYTELY) 236-22.74-6.74 -5.86 gram suspensionIndications:Hari yp of colon, unspecified part of colon, unspecified type Drink 2 liters the day before colonoscopy and 2 liters 6 hours before colonoscopy appointment 4000 mL 4 Active nitroglycerin (Nitrostat) 0.4 mg sublingual tabletIndications:Coronar y artery disease involving solomon coronary artery of solomon heart without angina pectoris Place 1 Tablet (0.4 mg) under the tongue every 5 minutes if needed for Chest Pain. 25 Tablet 6 4 Active allopurinoL (ZYLOPRIM) 300 mg tabletIndications:Gout, unspecified cause, unspecified chronicity, unspecified site Take 1 Tablet (300 mg) by mouth once daily. 90 Tablet 3 4 Active metoprolol succinate (TOPROL XL) 50 mg sustained-release tabletIndications:Essenti al hypertension Take 1 Tablet (50 mg) by mouth once daily. 90 Tablet 3 4 Active simvastatin (ZOCOR) 80 mg tabletIndications:Pure hypercholesterolemia Take 1 Tablet (80 mg) by mouth at bedtime. 90 Tablet 3 4 Active lisinopril-hydrochlorothi azide 20-12.5 mg tablet (PRINZIDE)Indications:Ess ential hypertension Take 1 Tablet by mouth once daily. 90 Tablet 3 4 Active Active Problems Problem Noted Date Diagnosed Date Ascending aorta dilation 11/16/2023 Overview (11/16/2023): Diagnosed in 11/2023 with ascending aorta that measures 4 cm in diameter. Will do yearly monitoring with echocardiogram or CT[facility] recommends surgery for 5.5 cm or greater as of 11/16/2023. Jayro Mcconnell MD Essential hypertension 08/16/2018 Seborrheic keratosis 07/22/2017 Overview (10/14/2017): 1 by 1.5 cm flesh colored lesion on right shoulder. 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 No history of ME. Idiopathic gout 05/19/2015 DDD (degenerative disc disease), lumbar 08/27/19 12 Degenerative arthritis of both hips - R worse th an L 08/27/2011 Overview (08/13/2013): Pt scheduled for right total hip arthroplasty on 08/20/[address] Herron Elevated prostate specific antigen (PSA) 012 Overview (07/28/2012): Bx negative in 2011 Colon polyp 09/02/2010 Overview (01/04/2019): Colonoscopy 08/2010 polyp repeat in 3 years Colonoscopy 12/2013 normal repeat in 5 years Colonoscopy 12/2018 normal, repeat in 5 years Prediabetes 07/29/2009 Overview (08/13/2013): Glucose (07/27/13) 116 Generalized hyperhidrosis 10/24/2007 Degeneration of lumbar or lumbosacral interverte bral disc 03/23/2007 Overview (08/13/2013): Pt takes aspirin in the morning. Pure hypercholesterolemia 03/23/2007 Overview (07/28/2012): Last Lipids: Chol: 148 07/28/2012 T 07/28/2012 HDL: 39 07/28/2012 LDL: 81 07/28/2012 On simvastatin Resolved Problems Problem Noted Date Diagnosed Date Resolved Date Other chest pain 10/24/2007 01/19/2008 Overview (10/24/2007): -had pain 3 years ago -stress test was negative per patient report -this time started 10/18/2007 while driving (does not usually drive) -had same pain while running a couple of blocks on 10/19/2007 -same pain while walking around [place] 10/20/2007 -same pain 2 episodes 10/24/2007 -chest burning/tightness -some dyspnea -some diaphoresis -radiating to left arm and up into neck/jaw Gouty Arthropathy 03/23/2007 08/13/2013 Encounters Date Type Department Care Team Description 03/18/2024 Travel 03/02/2024 11:20 AM CDT Preop Visit [facility] [address] [place] [address] Jayro Mcconnell MD Preoperative Exam (Colonoscopy DOS: 03/23/24) 03/02/2024 Travel 02/26/2024 Travel 02/22/2024 2:25 PM CDT Office Visit [facility] [address] [place] [address] Jayro Mcconnell MD Medicare ANNUAL (subsequent) Visit (71 years) 02/22/2024 Travel 02/19/2024 Travel 01/04/2024 Telephone [facility] [address] [place] [address] Armani Velarde MD Colorectal Cancer Screening (Dr. Syd Callahan); Screening from Last 3 Months Immunizations Name Administration Dates Next Due Amb Influenza, Inactivated A IIV4 (Age 65+ Years) Preserv Free 02/07/2020 COVID-19 VACCINE SPIKEVAX (M ODERNA 50MCG/0.5ML) 12YO+ PFS 03/02/2024 COVID-19 vaccine (Moderna 100mcg/0.5mL) PF, MDV 08/07/2020,07/10/2020 COVID-19 vaccine (Pfizer-Bio NTech 30mcg/0.3mL) 12YO+ BIVALENT PF, MDV 03/15/2022 Influenza, High-dose Quadrivalent Inactivated Influenza, Inactivated AIIV4 (Age 65+ Years) Preserv Free 03/15/2022 Influenza, Inactivated IIV3 (Age 65+ Years) Preserv Free 07/10/2019 Pneumococcal Poly,23-Valent (Pneumovax) 10/18/19 20 Pneumococcal conj 13-Valent (Prevnar 13) 019 Td (Age >=7 Years) 06/28/2005 Tdap 04/23/2016 Zoster (Shingrix-RZV, recombinant) 09/04/2020, Zoster (Zostavax-ZVL, live) 02/26/2013 Family History Medical History Relation Name Comments Arthritis Father bilateral hip r eplacements Heart Disease Father needed 3 stent s at age 88 Hypertension Father later in life Other Father of old age at 91; he also had mesothelioma Stroke Mother of stroke at 71; smoker Hypertension Other ME Relation Name Status Comments Brother 1 Alive Brother 2 Alive Brother 3 Alive Father Mother Other Sister 1 Galina Alive Sister 2 Mary Alive Sister 3 Alive Social History Tobacco Use Types Packs/Day Years Used Date Smoking Tobacco: Never Passive Smoke Exposure: Never Smokeless Tobacco: Never Tobacco Cessation:Counseling Given: Yes Comments:lived with 2nd hand smoke for 18 yrs. Alcohol Use Standard Drinks/Week Comments Not Currently 0 (1 standard drink = 0.6 oz pur e alcohol) only when in [place] PHQ-2 Answer Date Recorded PHQ-2 TOTAL SCORE 1 02/22/2024 Social Connections Answer Date Recorded Do you often feel lonely or isolated from those around you? 0 06/24/2023 Financial Resource Strain Answer Date R ecorded Difficulty of Paying Living Expenses 3 06/24/2023 Difficulty of Paying Living Expenses Not on file 06/24/2023 Food Insecurity Answer Date Recorded Do you worry your food will run out before you are able to buy more? 1 06/24/2023 Transportation Needs Answer Date Record ed Does lack of transportation keep you from medica l appointments? 1 06/24/2023 Does lack of transportation keep you from work, meetings or getting things that you need? 1 06/24/2023 Housing Stability Answer Date Recorded What is your housing situation today? 1 06/24/2023 Sex and Gender Information Value Date Recorded Sex Assigned at Not on file Gender Identity Not on file Sexual Orientation Not on file Obstetrics History Last Filed Vital Signs Vital Sign Reading Time Taken Comments Blood Pressure 128/81 03/02/2024 11:21 AM CDT Pulse 87 03/02/2024 11:21 AM CDT Temperature 36.4 ??C (97.5 ??F) 03/02/2024 1 1:21 AM CDT Respiratory Rate 16 12/21/2022 12:4 0 PM CDT Oxygen Saturation 98% 03/02/2024 11: 21 AM CDT Inhaled Oxygen Concentration - - Weight 76.6 kg (168 lb 12.8 oz) 024 11:21 AM CDT Height 171.1 cm (5' 7.36) 03/02/2024 1 1:21 AM CDT Body Mass Index 26.15 03/02/2024 11:21 AM CDT Plan of Treatment Health Maintenance Due Date Last Done Comments Colonoscopy through age 75 01/05/202401/04, 01/04/2019, 01/04/2019, Additional history exists Influenza for age 65+ 01/08/2024 02/07/2023 , 03/15/2022, 02/07/2020, Additional history exists Depression screening for age 12+ 02/21/2025 02/22/2024, 06/10/2023, 12/16/2021, Additional history exists Medicare Wellness for age 65+ 02/22/2025, 12/16/2021, 11/19/2020, Additional history exists BMI (ht and wt on same day) for age 18+ 03/02/2025 03/02/2024, 02/22/2024, 10/26/2023, Additional history exists Tetanus booster 04/23/2026 04/23/2016, 06/28/2005 Lipids for age 45-75 02/21/2029 02/22/2024, 07/08/2023, 12/16/2021, Additional history exists Tdap Completed 04/23/2016 Hepatitis C screening for ag e 18-79 Completed 08/04/2016 Pneumococcal series for age 65+ Completed 0, 10/16/2018 Zoster (shingles) series for age 50+ Completed 09/04/2020, 05/14/2020, 02/26/2013 COVID-19 vaccine series Completed 03/02/20 24, 02/07/2023, 03/15/2022, Additional history exists Medical Devices Implanted Type Area Truck Driver Rubbish Collector Device Identifier Shelf Expiration Date Model / Serial / Lot Shell Hip Rt Od58mm Church Adm X3 - [id number] Implanted:Qty: 1 on 08/20/2013 at [facility] Right: Hip [employer] [id number]# / / [id number] Stem Hip Sz4 127deg Accolade Ii - [id number] Implanted:Qty: 1 on 08/20/2013 at [facility] Right: Hip [place] [employer] [id number]# / / [id number] Liner Hip Id28 Od58mm Adm X3 Pe - [id number] Implanted:Qty: 1 on 08/20/2013 at [facility] Right: Hip [employer] [id number]# / / [id number] Head Hip Od28mm +4 Biolox Delta C-Taper Alumina Cer - [id number] Implanted:Qty: 1 on 08/20/2013 at [facility] Right: Hip [employer] [id number] # / / [id number] Shell Hip Lt Od58mm Church Adm X3 - [id number] Implanted:Qty: 1 on 06/05/2015 by Ramiro Herron MD at [facility] Left: Hip [employer] [id number] # / / [id number] Stem Hip Sz4 127deg Accolade Ii - [id number] Implanted:Qty: 1 on 06/05/2015 by Ramiro Herron MD at [facility] Left: Hip [employer] [id number]# / / [id number] Liner Hip Id28 Od58mm Adm X3 Pe - [id number] Implanted:Qty: 1 on 06/05/2015 by Ramiro Herron MD at [facility] Left: Hip [employer] [id number]# / / [id number] Head Hip Od28mm +4 [employer] Delta C-Taper Alumina Cer - [id number] Implanted:Qty: 1 on 06/05/2015 by Ramiro Herron MD at [facility] Left: Hip [employer] 6570-0-228 # / / [id number] Procedures Procedure Name Priority Date/Time Associated Diagnosis Comments URIC ACID Routine 02/22/2024 3:54 PM CDT Gout, unspecified cause, unspecified chronicity, unspecified site ALT (SGPT) Routine 02/22/2024 3:54 PM CDT Gout, unspecified cause, unspecified chronicity, unspecified site BASIC METABOLIC PANEL Routine 02/22/2024 3:54 PM CDT Essential hypertension LIPID PANEL W REFLEX MEASURED LDL Routine 02/22/2024 3:54 PM CDT HYPERCHOLESTEROLEMIA PSA (TOTAL) ([facility]) Routine 02/22/2024 3 :54 PM CDT Elevated PSA COLONOSCOPY SCREENING Routine 01/04/2019 8:36 AM CDT History of colon polyps ANTI HCV Routine 08/04/2016 10:17 AM CDT Need for hepatitis C screening test from Last 3 Months or Most Recently Relevant to Health Maintenance Results * PSA (TOTAL) ([facility]) (02/22/2024 3:54 PM CDT) PSA, TOTAL 1.99 < OR = 4.00 ng/mL [facility] Comment: The total PSA value from this assay system is standardized against the WHO standard. The test result will be approximately 20% lower when compared to the equimolar-standardized total PSA (Valeriano [place]). Comparison of serial PSA results should be interpreted with this fact in mind. This test was performed using the Siemens chemiluminescent method. Values obtained from different assay methods cannot be used interchangeably. PSA levels, regardless of value, should not be interpreted as absolute evidence of the presence or absence of disease. Blood BLOOD SPECIMEN / Unknown 02/22/2024 3:54 PM CDT 02/22/2024 3:55 PM CDT Jayro Mcconnell MD SEND OUTS [facility] [address] [place] [address], [facility] [address] [place] [address] * LIPID PANEL W REFLEX MEASURED LDL (02/22/2024 3:54 PM CDT) CHOLESTEROL, TOTAL 136 <200 mg/dL [facility] HDL CHOLESTEROL 44 > OR = 40 mg/dL [facility] TRIGLYCERIDES 115 <150 mg/dL [facility] LDL-CHOLESTEROL 72 mg/dL (calc) [facility] Comment: Reference range: <100 Desirable range <100 mg/dL for primary prevention; ?? <70 mg/dL for patients with CHD or diabetic patients with > or = 2 CHD risk factors. LDL-C is now calculated using the Armani-Andressa calculation, which is a validated novel method providing better accuracy than the Friedewald equation in the estimation of LDL-C. Armani SS et al. MELINDA. 2013;310(19): 4636-2873 (http://education.[employer]/faq/MPV748) CHOL/HDLC RATIO 3.1 <5.0 (calc) [facility] NON HDL CHOLESTEROL 92 <130 mg/dL (calc) [facility] Comment: For patients with diabetes plus 1 major ASCVD risk factor, treating to a non-HDL-C goal of <100 mg/dL (LDL-C of <70 mg/dL) is considered a therapeutic option. Blood BLOOD SPECIMEN / Unknown 02/22/2024 3:54 PM CDT 02/22/2024 3:55 PM CDT Jayro Mcconnell MD CHEMISTRY Performing Organization Address [facility] de Phone Number [facility] [address] [place] [address], [place] [phone] [facility] [address] [place] [address] * URIC ACID (02/22/2024 3:54 PM CDT) URIC ACID 6.4 4.0 - 8.0 mg/dL [facility] Comment: Therapeutic target for gout patients: <6.0 mg/dL ?? Blood BLOOD SPECIMEN / Unknown 02/22/2024 3:54 PM CDT 02/22/2024 3:55 PM CDT Jayro Mcconnell MD CHEMISTRY Performing Organization Address [facility] [[email or web address]] Co de Phone Number [facility] [address] [place] [address], [place] [phone] [facility] [address] [place] [address] * ALT (SGPT) (02/22/2024 3:54 PM CDT) Pathologist [facility] ALT 20 9 - 46 U/L [facility] Blood BLOOD SPECIMEN / Unknown 02/22/2024 3:54 PM CDT 02/22/2024 3:55 PM CDT Jayro Mcconnell MD CHEMISTRY Performing Organization Address [facility] [[email or web address]] Co de Phone Number [facility] [address] [place] [address], [place] [phone] [facility] [address] [place] [address] * (ABNORMAL) BASIC METABOLIC PANEL (02/22/2024 3:54 PM CDT) Pathologist [facility] GLUCOSE 97 65 - 99 mg/dL [facility] Comment: ? Fasting reference interval UREA NITROGEN (BUN) 23 7 - 25 mg/dL [facility] CREATININE 1.34(H) 0.70 - 1.28 mg/dL [facility] EGFR 57(L) > OR = 60 mL/min/1.7 3m2 [facility] BUN/CREATININE RATIO 17 6 - 22 (calc) [facility] SODIUM 141 135 - 146 mmol/L [facility] POTASSIUM 4.1 3.5 - 5.3 mmol/L [facility] CHLORIDE 104 98 - 110 mmol/L [facility] CARBON DIOXIDE 25 20 - 32 mmol/L [facility] ELECTROLYTE BALANCE 12 7 - 17 mmol/L (calc) [facility] CALCIUM 9.9 8.6 - 10.3 mg/dL [facility] Blood BLOOD SPECIMEN / Unknown 02/22/2024 3:54 PM CDT 02/22/2024 3:55 PM CDT Jayro Mcconnell MD CHEMISTRY [facility] [address] [place] [address], [facility] [address] * COLONOSCOPY SCREENING (01/04/2019 8:36 AM CDT) Jayro Mcconnell MD GI PROCEDURE ORD * ANTI HCV (08/04/2016 10:17 AM CDT) Pathologist [facility] HEPATITIS C ANTIBODY Non-Reacti ve Non-Reacti ve 08/04/2016 5:59 PM CDT [facility] Blood BLOOD SPECIMEN / Unknown Venipuncture / Unknown 08/04/2016 10:17 AM CDT 08/04/2016 10:17 AM CDT Narrative [facility] - 08/04/2016 5:59 PM CDT Antibodies to HCV not detected; does not exclude the possibility of exposure to HCV. Jayro Mcconnell MD SEND OUTS [facility] [address] [place] [address], from Last 3 Months or Most Recently Relevant to Health Maintenance Advance Directives Documents on File Type Date Recorded Patient Broadcast Operations Engineer Expl anation Healthcare Directive 12/06/2008 [facility], [facility], 11/08 * Full Code (Latest Code Status on File) Date Activated Date Inactivated Comments 12/21/2022 9:23 AM 12/21/2022 3:07 PM Question Answer Comments Code Status Discussion: Unable to Assess Preferences, Provider to review later * Full Code Date Activated Date Inactivated Comments 06/05/2015 2:06 PM 06/08/2015 8:05 PM * Full Code Date Activated Date Inactivated Comments 06/05/2015 5:15 AM 06/05/2015 2:06 PM * Full Code Date Activated Date Inactivated Comments 08/20/2013 4:24 PM 08/22/2013 7:11 PM * Full Code Date Activated Date Inactivated Comments 08/20/2013 7:59 AM 08/20/2013 4:24 PM Care Teams Regrader Relationship Specialty Start Date End Date [place] [address] [place] [address] PCP - General 07/08/09 Ab Rm MD [address] [place] [address] Urology Surgery - Urology 08/23/11
--- NOTE | 2024-03-23 08:24 | W.ANESCHARGE ---
Anesthesia Charges Start Date/Time Anesthesia Start Date: 03/23/24 Anesthesia Start Time: 07:55 Stop Date/Time Anesthesia Stop Date: 03/23/24 Anesthesia Stop Time: 08:19
--- NOTE | 2024-03-23 08:31 | W.ANESCHARGE ---
Anesthesia Charges Start Date/Time Anesthesia Start Date: 03/23/24 Anesthesia Start Time: 07:55 Stop Date/Time Anesthesia Stop Date: 03/23/24 Anesthesia Stop Time: 08:19 Summary Extremes of Age - Over 70 or under 1: MDA
== END 2024-03-23 07:20 | disposition home or self-care (01) ==
LOC: OP CLINIC 07:20
PROVIDERS: PCP Family Medicine; Visit Provider Internal Medicine Gastroenterology
DX: Z12.11 Encounter for screening for malignant neoplasm of colon (principal); D12.2 Benign neoplasm of ascending colon; Z86.0101 Personal history of adenomatous and serrated colon polyps
CPT/HCPCS: 00811; 45380; 88305; 99100; J2704

== ENCOUNTER 2024-06-13 09:28 | Emergency (ER) | payer MEDICARE, SELFPAY ==
[2024-06-13] VITALS (9 sets, daily range): BP systolic 139–147; BP diastolic 77–92; PULSE 72–81; RESP 16; TEMP 36.9; O2SAT 96–100; BMI 26.3
--- OUTSIDE RECORDS SUMMARY | 2024-06-13 09:30 | XMS_ITS | Referral Summary ---
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 MACHINE OPERATOR Gender Identity Not on file Sexual Orientation Not on file Last Filed Vital Signs Vital Sign Reading Time Taken Comments Blood Pressure 172/99 05/13/2022 1:06 PM MINCING MACHINE OPERATOR Pulse 91 05/13/2022 1:06 PM MINCING MACHINE OPERATOR Temperature 36.1 C (97 F) 05/13/2022 12:00 PM MINCING MACHINE OPERATOR Respiratory Rate 16 05/13/2022 1:06 PM MINCING MACHINE OPERATOR Oxygen Saturation 97% 05/13/2022 1:06 PM MINCING MACHINE OPERATOR Inhaled Oxygen Concentration - - Weight 74 kg (163 lb 1.6 oz) 05/13/2022 7:23 AM MINCING MACHINE OPERATOR Height 170.2 cm (5' 7) 05/13/2022 7:23 AM MINCING MACHINE OPERATOR Body Mass Index 25.55 05/13/2022 7:23 AM MINCING MACHINE OPERATOR Plan of Treatment Not on file Insurance [employer] MEDICARE Care Teams In Flight Refueling Operator Relationship Specialty Start Date End Date Jayro Mcconnell MD PCP - General Family Medicine 04/19/22
--- OUTSIDE RECORDS SUMMARY | 2024-06-13 09:30 | XMS_ITS | Clinical Summary ---
Author Organization [facility] Address [address] [place] [address] Care Team Providers Care Personnel Coordinator Name Role Phone Jayro Mcconnell MD Primary Care Provider +1- [phone] Allergies No known active allergies Medications allopurinol [...] on file Legal Sex Male 12:57 PM CUSTOM STOCK MAKER Gender Identity Not on file Sexual Orientation Not on file Last Filed Vital Signs Vital Sign Reading Time Taken Comments Blood Pressure 172/99 05/13/2022 1:06 PM CUSTOM STOCK MAKER Pulse 91 05/13/2022 1:06 PM CUSTOM STOCK MAKER Temperature 36.1 C (97 F) 05/13/2022 12:00 PM CUSTOM STOCK MAKER Respiratory Rate 16 05/13/2022 1:06 PM CUSTOM STOCK MAKER Oxygen Saturation 97% 05/13/2022 1:06 PM CUSTOM STOCK MAKER Inhaled Oxygen Concentration - - Weight 74 kg (163 lb 1.6 oz) 05/13/2022 7:23 AM CUSTOM STOCK MAKER Height 170.2 cm (5' 7) 05/13/2022 7:23 AM CUSTOM STOCK MAKER Body Mass Index 25.55 05/13/2022 7:23 AM CUSTOM STOCK MAKER Plan of Treatment Health Maintenance Due Date Last Done Comments ADVANCE CARE PLANNING 1952 ANNUAL REVIEW OF HM ORDERS 1952 CT COLONOGRAPHY 1952 FIT 1952 FLEX SIG 1952 GLUCOSE 1952 LIPID 1952 URIC ACID 1952 sDNA (Cologuard) 1952 COLONOSCOPY 1962 COLORECTAL CANCER SCREENING 1962 HEPATITIS C SCREENING 1970 FALL RISK ASSESSMENT 2017 MEDICARE ANNUAL WELLNESS VISIT 12/16/2022 12/16/2021, 11/19/2020 COVID-19 Vaccine ( season) 2024 03/15/2022, 09/07/2021, 03/12/2021, Additional history exists INFLUENZA VACCINE (#1) 2024 , 02/07/2020, 07/10/2019 PHQ-2 (once per calendar year) 2024 DTAP/TDAP/TD IMMUNIZATION (2 - Td or Tdap) 04/23/2026 04/23/2016, 06/28/2005 RSV VACCINE (1 - 1-dose 75+ series) 10/23/2027 Pneumococcal Vaccine: 50+ Years Completed 10/18/2019, 10/16/2018 ZOSTER IMMUNIZATION Completed 09/04/2020, 05/14/2020, 02/26/2013 HPV IMMUNIZATION Aged Out No longer e ligible based on patient's age to complete this topic MENINGITIS IMMUNIZATION Aged Out No l onger eligible based on patient's age to complete this topic Insurance [employer] MED[employer]ARE Care Teams Personnel Coordinator Relationship Specialty Start Date End Date Jayro Mcconnell MD PCP - General Family Medicine 04/19/22
--- OUTSIDE RECORDS SUMMARY | 2024-06-13 09:30 | XMS_ITS | Data Portability ---
Author Organization [facility], [facility] Address [address] [place] [address] Care Team Providers Care Wool Merchant Name Role Phone [facility] Primary Care Provider Assessment Encounter Date Assessment Date Assessment LastModified by Organization Details LastModified Time 05/14/2022 05/14/2022 71 Y/O MALE. HX URINARY RETENTION, S/P LASER ASSISTED TURP FOR A LARGE OBSTRUCTING PROSTATE. HE IS FROM [place] AND WAS SEEN TO ASSESS SOME HEMATURIA. [...] By Organization Details Last Modified Time 04/21/2022 [id number] / TURP [email or web address] Not available 04/21 16:08:42 05/18/2022 [id number] RTC or ER if unable to void [...] ate 2) Sensi tivit y Debora sis [place] te 1 [place] te 2 ----- ----- ----- ----- ----- [...] s Desk Refer ence or from the [facility] actur er. S= Susce ptibl e;I= [...] for provi miguel revie w. Not Available [facility] [address] [place] [address] [address], [place], [address], 04/07/2022 11:18:33 Result Notes None recorded. Procedures Surgical History Date Name Laterality Status Provider Name and Address Organization Details Recorded Time 05/18/19 23 Fill and Pull/Voiding Trial/TOV completed Tata Benavides [facility] 05/18/2022 11:27:09 05/14/19 23 Bladder Irrigation completed Zion Villeda [facility] 05/14/2022 12:42:13 04/21/20 22 Urethral Catheter Change completed Remedios Radford [facility] 04/21/2022 16:08:24 04/05/20 22 Urethral Catheter Change completed Remedios Radford [facility] 04/05/2022 15:40:40 02/27/20 22 Bladder Scan completed Nallely Francis [facility] 02/26/2022 15:45:15 02/27/20 22 Tompkins Catheter Removal completed Zion Villeda [facility] 02/26/2022 09:43:25 02/27/20 22 CystoscopyMale completed Ernie Loya MD [address], [place], [address], [facility] 02/26/2022 09:48:14 Imaging Results None recorded. [...] Updated DateTime 05/14/2022 170.18 cm 25.1 kg/m2 25879.78 g Ernie Loya MD [address],[facility] [address], [place], [address], [facility] 05/14/2022 12:28:29 Date Recorded Body height Body mass index (BMI) Body weight Provider Name and Address Organization Details Last Updated DateTime 06/08/2022 170.18 cm 25.1 kg/m2 [address]59.[address] [facility] 06/08/2022 10:47:55 Social History Question Answer Notes LastModified by Organizat ion Details LastModified Time Tobacco Smoking Status Never Smoker Ernie Loya MD [address], [place], [address], [facility] 02/10/2022 10:19:14 What Was The Date [...] Diagnosis/Indication Diagnosis SNOMED-CT Code Diagnosis ICD10 Code Diagnosis Note [id number] MD Cecelia Boateng [employer] [address] [place] [id number] 02/10/2022 10:02:12 02/12/2022 14:10:16 Retention of urine 867674165 R33.9 Benign pro static hyperplasia with outflow obstruction 973827152 N40.1 [id number] MD Cecelia Boateng [employer] [address]. [place] [address] 02/26/2022 08:54:12 03/03/2022 11:30:04 Benign prostatic hyperplasia with outflow obstruction 455531747 N40.1 Retention of urine 61889 4002 R33.9 [id number] MD Cecelia Boateng [employer] [address] [place] [address] 02/26/2022 14:45:58 03/03/2022 11:32:02 Retention of urine 784527118 R33.9 PVR done.Shows 101ml. Pt states he has urinated since he got home this am. Large amount and a couple of small amounts. Had to go to [facility] for Urinary Retention about a month ago, so is a little gun shy.Pt also states he has been having some bleeding since Cysto with Dr Loya. I told him that this is normal. Pt does have abx sample to take. Dr Loya said for him to take it easy for a few days and drink lots of water. Juliet, RN/BSN [id number] Ernie Loya MD [address] [place] [address] 03/05/2022 10:31:23 03/10/2022 13:12:50 Benign prostatic hyperplasia with outflow obstruction 873197746 N40.1 Acute rete ntion of urine 456009592 R33.8 [id number] Remedios [address] [place] [address] 04/05/2022 14:52:43 04/07/2022 11:11:56 Urinary tract infectious disease 11349029 N39.0 Patient states he had UTI in February- wanted urine rechecked. Dysuria and foul smelling urine at times. Retention of urine 13935 4002 R33.9 tompkins until 05/13 TURP with RU [id number] Ernie Loya MD [address] [place] [address] 04/09/2022 12:15:57 04/21/2022 09:06:14 Difficulty managing urinary catheter 982074186 Z74.1 Pts catheter adjusted. Inserted additional 5 cc into balloon, making it 15cc. Will contact if contniues to have issues [id number] Remedios Villareal[address] [place] [address] 04/21/2022 15:34:47 04/23/2022 16:59:00 Benign prostatic hyperplasia with outflow obstruction 222637208 N40.1 Patient has been bypassing urine frequently - he doesn't think they are bladder spasms and would like to try changing tompkins before he resorts to medication . [id number] MD PERRY BoatengCarole [address] [place] [address]. Nichole [place] [address] 05/14/2022 12:10:22 05/19/2022 10:20:42 Benign prostatic hyperplasia with outflow obstruction 589491196 N40.1 Patient has been bypassing urine frequently - he doesn't think they are bladder spasms and would like to try changing tompkins before he resorts to medication . [id number] Tata Makayla [facility] [address] [place] [address] 05/18/2022 10:41:07 05/21/2022 12:55:48 Retention of urine 667699392 R33.9 See Procedure Documentat ion for details. S/P TURP per RU on 05/13/2022. IN: 300ml/OUT: 280ml +inc. Pt is already on an abx per his PMD for UTI, and has meds left, so no new abx given. FLORENCE Chung/BSN [id number] Ernie Loya MD [facility] [address] [place] [address] 06/08/2022 10:47:10 06/11/2022 11:26:45 Benign prostatic hyperplasia with outflow obstruction 631983447 N40.1 Patient has been bypassing urine frequently - he doesn't think they are bladder spasms and would like to try changing tompkins before he resorts to medication . Retention of urine 65665 4002 R33.9 See Procedure Documentat ion for details. S/P TURP per RU on 05/13/2022. IN: 300ml/OUT: 280ml +inc. Pt is already on an abx per his PMD for UTI, and has meds left, so no new abx given. FLORENCE Chung/BSN Health Concerns Section Related Observation LastModified by Organization Detai ls LastModified Time None Recorded Concern Status LastModified by Organization Details LastModified Time None Recorded Advance Directives Directive None Recorded Payers Encounter Date Sequence Insurance Name Policy Number Policy Vance Covered Member ID Vance Member ID Guarantor Name 04/09/2022 1 [employer] - DOS ON OR AFTER 19 (MEDICARE REPLACEMENT/ ADVANTAGE - HMO) [id number] Armani Velarde [id number] Armani Velarde 04/21/2022 1 [employer] - DOS ON OR AFTER 19 (MEDICARE REPLACEMENT/ ADVANTAGE - HMO) [id number] Armani Velarde [id number] Armani Velarde 05/14/2022 1 [employer] - DOS ON OR AFTER 20 (MEDICARE REPLACEMENT/ ADVANTAGE - HMO) [id number] Armani Velarde [id number] Armani Velarde 05/18/2022 1 [employer] - DOS ON OR AFTER 19 (MEDICARE REPLACEMENT/ ADVANTAGE - HMO) [id number] Armani Velarde [id number] Armani Velarde 06/08/2022 1 [employer] - DOS ON OR AFTER 19 (MEDICARE REPLACEMENT/ ADVANTAGE - HMO) [id number] Armani Velarde [id number] Armani Velarde Notes Date Note Type Note Provider Name and Address Organization Details Recorded Time 04/09/2022 text/html Pt here to have catheter looked at, having some urine bypassing Ernie Loya MD [address] [place] [address],[address], [address], [facility] 04/11/2022 11:03:17 05/14/2022 text/html 71 YOM [...] BETTER TODAY. IRRIGATED CLEAR Ernie Loya MD [address] [place] [address],[address], [place], [address], [facility] 05/14/2022 15:23:07 06/08/2022 text/html 71 YOM [...] and coordinate their care. Ernie Loya MD [address] [place] [address],[address], [place], [address], [facility] 06/08/2022 11:10:40
--- OUTSIDE RECORDS SUMMARY | 2024-06-13 09:30 | XMS_ITS | Clinical Summary ---
Author Organization [facility] Address [place], [place] [address] Care Team Providers Care Child Therapist Name Role Phone Jayro Mcconnell MD Primary Care Provider [phone] Ab Rm MD Unavailable + [phone] Allergies No known active allergies Medications aspirin enteric coated (ECOTRIN) 325 mg tabletIndications:Coron gemini artery disease involving lower [place] coronary artery of [place] heart without angina pectoris Take 1 tablet by mouth once daily with a meal. 90 tablet 3 018 Active polyethylene glycol-electrolyte (GOLYTELY) 236-22.74-6.74 -5.86 gram suspensionIndications:P olyp of colon, unspecified part of colon, unspecified type Drink 2 liters the day before colonoscopy and 2 liters 6 hours before colonoscopy appointment 4000 mL 4 12:51 AM CDT 024 Active nitroglycerin (Nitrostat) 0.4 mg sublingual tabletIndications:Coron gemini artery disease involving lower [place] coronary artery of [place] heart without angina pectoris Place 1 Tablet (0.4 mg) under the tongue every 5 minutes if needed for Chest Pain. 25 Tablet 6 024 Active allopurinoL (ZYLOPRIM) 300 mg tabletIndications:Gout, unspecified cause, unspecified chronicity, unspecified site Take 1 Tablet (300 mg) by mouth once daily. 90 Tablet 3 4 2:51 PM BOX FABRICATOR 024 Active metoprolol succinate (TOPROL XL) 50 mg sustained-release tabletIndications:Essen tial hypertension Take 1 Tablet (50 mg) by mouth once daily. 90 Tablet 3 4 5:21 PM CDT 024 Active simvastatin (ZOCOR) 80 mg tabletIndications:Pure hypercholesterolemia Take 1 Tablet (80 mg) by mouth at bedtime. 90 Tablet 3 5 4:17 PM BOX FABRICATOR 024 Active lisinopril-hydrochlorot hiazide 20-12.5 mg tablet (PRINZIDE)Indications:E ssential hypertension Take 1 Tablet by mouth once daily. 90 Tablet 3 4 5:21 PM CDT 024 Active Active Problems Problem Noted Date Diagnosed Date Ascending aorta dilation 11/16/2023 Overview (11/16/2023): Diagnosed in 11/2023 with ascending aorta that measures 4 cm in diameter. Will do yearly monitoring with echocardiogram or CT. [facility] recommends surgery for 5.5 cm or greater as of 11/16/2023. Jayro Mcconnell MD Essential hypertension 08/16/2018 Seborrheic keratosis 07/22/2017 Overview (10/14/2017): 1 by 1.5 cm flesh colored lesion on right shoulder. 6 by 15 mm as of 10/14/2017 Benign non-nodular prostatic hyperplasia with lower urinary tract symptoms 07/21/2015 Coronary artery disease invo lving lower [place] coronary artery of [place] heart without angina pectoris 05/19/2015 Overview (10/16/2018): Stent in mid left anterior descending in 2007. No history of CT. Idiopathic gout 05/19/2015 DDD (degenerative disc disease), lumbar 08/27/19 12 Degenerative arthritis of both hips - R worse th an L 08/27/2011 Overview (08/13/2013): Pt scheduled for right total hip arthroplasty on 08/20/[address] Herron Elevated prostate specific antigen (PSA) 012 Overview (07/28/2012): Bx negative in 2011 Colon polyp 09/02/2010 Overview (03/29/2024): Colonoscopy 08/2010 polyp repeat in 3 years Colonoscopy 12/2013 normal repeat in 5 years Colonoscopy 12/2018 normal, repeat in 5 years Colonoscopy 03/2024 TA, repeat in 5 years Prediabetes 07/29/2009 Overview [...] on 10/19/2007 -same pain while walking [place] 10/20/2007 -same pain 2 episodes 10/24/2007 -chest burning/tightness -some dyspnea -some diaphoresis -radiating to left arm and up into neck/jaw Gouty Arthropathy 03/23/2007 08/13/2013 Encounters Date Type Department Care Team Description 06/13/2024 Nurse Triage [facility] [address] [place] [address] Jayro Mcconnell MD Low Blood Pressure 06/12/2024 Nurse Triage [facility] [address] [place] [address] Jayro Mcconnell MD Heart Problem (?) 03/23/2024 7:15 AM BOX FABRICATOR Office Visit [facility] at [facility] [address] [place] [address] Armani Velarde MD 03/23/2024 Lab Requisition [facility] [phone] Armani Velarde MD 03/23/2024 Orders Only [facility] [address] [place] [address] Jayro Mcconnell MD 1 scan: (1-Ord) [facility] 03/23/2024 Orders Only [facility] Scanner 1 scan: (1-Ord) INCOMING RECORDS-COLONOSCOPY, [facility], 03/23/2024 03/18/2024 Travel from Last 3 Months Immunizations Name [...] of stroke at 73; smoker Hypertension Other CT Relation Name Status Comments Brother 1 Alive [...] is your housing situation today? 1 06/24/2023 Utilities Answer Date Recorded Do you have trouble paying f or utilities (for example, heat, electricity, water, phone)? 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 Not on file Not on file Obstetrics History Last Filed Vital Signs Vital Sign Reading Time Taken Comments Blood Pressure 128/81 03/02/2024 11:21 AM CDT Pulse 87 03/02/2024 11:21 AM CDT Temperature 36.4 C (97.5 F) 03/02/2024 11:21 AM CDT Respiratory Rate 16 12/21/2022 12:4 0 PM CDT Oxygen Saturation 98% 03/02/2024 11: 21 AM CDT Inhaled Oxygen Concentration - - Weight 76.6 kg (168 lb 12.8 oz) 024 11:21 AM CDT Height 171.1 cm (5' 7.36) 03/02/2024 1 1:21 AM CDT Body Mass Index 26.15 03/02/2024 11:21 AM CDT Plan of Treatment Upcoming Encounters Date Type Department Care Team (Late st Contact Info) Description 06/22/2024 8:50 AM BOX FABRICATOR Office Visit [facility] [address] [place] [address] Jayro Mcconnell MD [address] [place] [address] Health Maintenance Due Date Last Done Comments RSV vaccine for adults or (1 - Risk 60-74 years 1-dose series) 2012 Influenza for age 65+ 01/08/2024 02/07/2023 , [...] 02/21/2029 02/22/2024, 07/08/2023, 12/16/2021, Additional history exists Colonoscopy through age 75 03/23/202903/23, 03/23/2024, 03/23/2024, Additional history exists Tdap Completed 04/23/2016 Hepatitis C screening for ag e 18-79 Completed 08/04/2016 Pneumococcal series for age 50+ Completed 0, 10/16/2018 Zoster (shingles) series for age 50+ Completed 09/04/2020, 05/14/2020, 02/26/2013 COVID-19 vaccine series Completed 03/02/20 24, 02/07/2023, 03/15/2022, Additional history exists Medical Devices Implanted Type Area Supervisor Customer Records Division Device Identifier Shelf Expiration Date Model / Serial / Lot Shell Hip Rt Od58mm Voodoo Adm X3 - [id number] Implanted:Qty: 1 on 08/20/2013 at [facility] Right: Hip [employer] [id number]# / / [id number] Stem Hip Sz4 127deg Accolade Ii - [id number] Implanted:Qty: 1 on 08/20/2013 at [facility] Right: Hip [employer] [id number]# / / [id number] Liner Hip Id28 Od58mm Adm X3 Pe - [id number] Implanted:Qty: 1 on 08/20/2013 at [facility] Right: Hip [employer] [id number]# / / [id number] Head Hip Od28mm +4 [employer] Delta C-Taper Alumina Cer - [id number] Implanted:Qty: 1 on 08/20/2013 at [facility] Right: Hip [employer] 6570-0-228 # / / [id number] Shell Hip Lt Od58mm Voodoo Adm X3 - [id number] Implanted:Qty: 1 on 06/05/2015 by Ramiro Herron MD at [facility] Left: Hip [employer] [id number] # / / [id number] Stem Hip Sz4 127deg Accolade Ii - [id number] Implanted:Qty: 1 on 06/05/2015 by Ramiro Herron MD at [facility] Left: Hip [employer] [id number]# / / [id number] Liner Hip Id28 Od58mm Adm X3 Pe - [id number] Implanted:Qty: 1 on 06/05/2015 by Ramiro Herron MD at [facility] Left: Hip [employer] [id number]# / / [id number] Head Hip Od28mm +4 [employer] Delta C-Taper Alumina Cer - [id number] Implanted:Qty: 1 on 06/05/2015 by Ramiro Herron MD at [facility] Left: Hip [employer] 6570-0-228 # / / [id number] Procedures Procedure Name Priority Date/Time Associated Diagnosis Comments LAB TRACKING EVENT Routine 03/23/2024 8: 08 AM BOX FABRICATOR PATH TISSUE EXAM Routine 03/23/2024 8:08 AM BOX FABRICATOR COLONOSCOPY SCREENING Routine 03/23/2024 7:22 AM BOX FABRICATOR Family history of colon cancer COLONOSCOPY SCREENING Routine 03/23/2024 12:00 AM BOX FABRICATOR Screening for colon cancer SCAN-COLONOSCOPY 03/23/2024 12:0 0 AM BOX FABRICATOR LIPID PANEL W REFLEX MEASURED LDL Routine 02/22/2024 3:54 PM CDT HYPERCHOLESTEROLEMI A ANTI HCV Routine 08/04/2016 10:17 AM CDT Need for hepatitis C screening test from Last 3 Months or Most Recently Relevant to Health Maintenance Results * LAB TRACKING EVENT (03/23/2024 8:08 AM BOX FABRICATOR) Other (Other) Client Collect / Unknown 03/23/2024 8:08 AM BOX FABRICATOR 03/23/2024 10:31 PM BOX FABRICATOR us Armani Velarde MD LAB BILL ONLY Final Res ult [facility] [address] [place] [address], * PATH TISSUE EXAM (03/23/2024 8:08 AM BOX FABRICATOR) Case Report Pathology Report Case: [id number] Authorizing Provider: Armani Velarde MD Collected: 03/23/2024 0808 Ordering Location: [facility] Received: 03/24/2024 0526 Pathologist: Sedrick Alan MD Specimen: Ascending Colon Polyp 03/27/2024 4:55 PM BOX FABRICATOR [facility] Final Diagnosis A) COLON, ASCENDING, POLYPECTOMY: 1. Tubular adenoma 2. Negative for high grade dysplasia 3. Per the colonoscopy report: a. Polyp size: 3 mm b. Resection: Complete c. Retrieval: Complete 03/27/2024 4:55 PM BOX FABRICATOR [facility] Clinical Information Surveillance colonoscopy Colonoscopy findings: Single ascending colon polyp, completely removed. 03/27/2024 4:55 PM BOX FABRICATOR [facility] Gross Description A) Received in formalin is a wilkes mucosal fragment measuring 2 mm in greatest dimension, which is entirely submitted in one cassette. It is labeled with the patient's name and designated ascending colon. Craig Velarde 03/26/2024 8:02 AM 03/27/2024 4:55 PM BOX FABRICATOR [facility] Microscopic Description The final diagnosis is based on microscopic examination of appropriate sections of all specimens. 03/27/2024 4:55 PM BOX FABRICATOR [facility] Additional Information Interpreted at [facility] - [address] [facility] [address], [place] [address] 03/27/2024 4:55 PM BOX FABRICATOR [facility] Other (Ascending Colon Polyp) 03/23/2024 8:08 AM BOX FABRICATOR 03/24/2024 5:26 AM BOX FABRICATOR us Armani Velarde MD PATHOLOGY/CYTOLOGY Final Result [facility] [address] [place] [address], [place] * SCAN-COLONOSCOPY (03/23/2024 12:00 AM BOX FABRICATOR) us Scanner OTHER Final Result * COLONOSCOPY SCREENING [[id number]] (03/23/2024 12:00 AM BOX FABRICATOR) us Jayro Mcconnell MD GI PROCEDURE ORD Final Res ult * LIPID PANEL W REFLEX MEASURED LDL (02/22/2024 3:54 PM CDT) CHOLESTEROL, TOTAL 136 <200 mg/dL [facility] HDL CHOLESTEROL 44 > OR = 40 mg/dL [facility] TRIGLYCERIDES 115 <150 mg/dL [facility] LDL-CHOLESTEROL 72 mg/dL (calc) [facility] Comment: Reference range: <100 Desirable range <100 mg/dL for primary prevention; <70 mg/dL for patients with CHD or diabetic patients with > or = 2 CHD risk factors. LDL-C is now calculated using the Logan calculation, which is a validated novel method providing better accuracy than the Friedewald equation in the estimation of LDL-C. Armani SS et al. MELINDA. 2013;310(19): 8399-8754 (http://education.Kippt/faq/QPD768) CHOL/HDLC RATIO 3.1 <5.0 (calc) [facility] NON HDL CHOLESTEROL 92 <130 mg/dL (calc) [facility] Comment: For patients with diabetes plus 1 major ASCVD risk factor, treating to a non-HDL-C goal of <100 mg/dL (LDL-C of <70 mg/dL) is considered a therapeutic option. Blood BLOOD SPECIMEN / Unknown 02/22/2024 3:54 PM CDT 02/22/2024 3:55 PM CDT Jayro Mcconnell MD CHEMISTRY Final Resu lt [facility] [address] [place] [address], [facility] [address] * ANTI HCV (08/04/2016 10:17 AM CDT) HEPATITIS C ANTIBODY Non-Reacti ve Non-Reacti ve 08/04/2016 5:59 PM CDT [facility] [employer] Blood BLOOD SPECIMEN / Unknown Venipuncture / Unknown 08/04/2016 10:17 AM CDT 08/04/2016 10:17 AM CDT Narrative [facility] - 08/04/2016 5:59 PM CDT Antibodies to HCV not detected; does not exclude the possibility of exposure to HCV. us Jayro Mcconnell MD SEND OUTS Final Resu lt [facility] [address] [place] [address], [place] from Last 3 Months or Most Recently Relevant to Health Maintenance Insurance [facility] MEDICARE ADVANTAGE MR MEDICARE PART A HB ONLY Advance Directives Documents on File Type Date Recorded Patient Map Editor Expl anation Healthcare Directive 12/06/2008 [place] [facility] DIRECTIVE, [facility], 11/08 * Full Code (Latest Code Status [...] 7:59 AM 08/20/2013 4:24 PM Care Teams Child Therapist Relationship Specialty Start Date End Date [place] [address] PCP - General 07/08/09 Ab Rm MD [address] [place] [address] Urology Surgery - Urology 08/23/11
--- NOTE | 2024-06-13 10:09 | ED.GENADULT ---
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 He feels like he has improved and he has recovered he has been eating and drinking. He continues on his metoprolol and his hydrochlorothiazide lisinopril combination antihypertensive. He has got a known smaller slightly less than 4 cm ascending aortic aneurysm that is being monitored by Dr. Bean he his primary doctor. He feels markedly better he is asymptomatic with no lightheadedness dizziness noted urinary symptoms no cough fever. He has had no chest pain. He presents to ED on recommendation of the triage nurse who recommended he call 911 and come to the hospital. Patient just drove in with his and he feels asymptomatic as mention. He has been eating and drinking adequately. He has had no further diarrhea. His blood pressure here is in the consistently 140-148 range systolic. He thinks he does have an adequately bedded machine at home. Related Data Home Medications ?Medication ?Instructions ?Recorded ?Confirmed allopurinol 300 mg tablet 300 mg PO QHS 02/07/22 06/13/24 metoprolol succinate 50 mg 50 mg PO QHS 02/07/22 06/13/24 tablet,extended release 24 hr simvastatin 80 mg tablet 80 mg PO QHS 02/07/22 06/13/24 aspirin 325 mg tablet 325 mg PO QHS 06/13/24 06/13/24 lisinopril 20 1 tab PO QHS 06/13/24 06/13/24 mg-hydrochlorothiazide 12.5 mg tablet Allergies Allergy/AdvReac Type Severity Reaction Status Date / Time No Known Drug Allergies Allergy Verified 06/13/24 09:32 Review of Systems Status of ROS: Reports: 6 or more systems reviewed and unremarkable except as noted in History and below [facility] Medical History Urinary retention ?R33.9 - Retention of urine, unspecified (ICD-10) Gout ?M10.9 - Gout, unspecified (ICD-10) Hypertension ?I10 - Essential (primary) hypertension (ICD-10) Surgical History No significant past surgical history Social History Smoking Status: Never smoker Do you use any of these nicotine containing products: None Second hand tobacco smoke exposure: No How often do you have a drink containing alcohol: never How often do you have six or more drinks on one occasion: Never AUDIT-C Alcohol total score: 0 Non-prescribed substance use: denies use service: No Exam Narrative: Exam Narrative: Objective: In general the patient's vital signs look unremarkable his O2 sat 100% is blood pressure 146/90 pulse 81 and regular. Alert orient x3 Slightly dry mucous membranes in the mouth but a patient is alert cooperative smiling interactive. Lungs are clear neck is supple heart rhythm regular heart murmur. Abdomen benign soft no masses or peritonitis Extremities are no edema neurologic nonfocal Knees exam bilaterally shows no swelling edema tenderness. No effusions. No warmth. Neurologic is nonfocal as mention. Const: Vital Signs, click to edit/add: Vital Signs - 24 hr 06/13/24 09:40 06/13/24 09:42 06/13/24 09:43 Temperature 98.5 F Pulse Rate 80 79 Pulse Rate [Pulse Oximeter] 80 Respiratory Rate 16 Blood Pressure 140/84 H Blood Pressure [Ri ght Upper Arm] 146/90 H Pulse Oximetry 100 100 100 Oxygen Delivery Me thod Room Air 06/13/24 09:45 06/13/24 10:00 06/13/24 10:02 Temperature Pulse Rate 81 78 78 Pulse Rate [Pulse Oximeter] Respiratory Rate Blood Pressure 139/92 H Blood Pressure [Ri ght Upper Arm] Pulse Oximetry 100 100 100 Oxygen Delivery Me thod 06/13/24 10:15 06/13/24 10:30 06/13/24 10:31 Temperature Pulse Rate 73 73 72 Pulse Rate [Pulse Oximeter] Respiratory Rate Blood Pressure 147/77 H Blood Pressure [Ri ght Upper Arm] Pulse Oximetry 96 100 100 Oxygen Delivery Me thod Course Vital Signs Vital signs: Initial Vital Signs Pulse Rate 80 06/13/24 09:40 Pulse Oximetry 100 06/13/24 09:40 Vital Signs Pulse Rate 80 06/13/24 09:40 Pulse Oximetry 100 06/13/24 09:40 Temperature 98.5 F 06/13/24 09:43 Pulse Rate 72 06/13/24 10:31 Respiratory Rate 16 06/13/24 09:43 Blood Pressure 147/77 H 06/13/24 10:31 Pulse Oximetry 100 06/13/24 10:31 Oxygen Delivery Method Room Air 06/13/24 09:43 Medical Decision Making MDM Narrative Medical decision making narrative: [age] white male with hypertension and gout with a viral type illness, tested negative for COVID but certainly sound similar to COVID with cough fever diarrhea. Now he is markedly improved. He had some low blood pressure readings at home. He has not had chest pain or infectious symptoms. He has no fever here. And is vital signs are normal, his blood pressure is on the upper end of normal. At this point he certainly could have an abnormally functioning machine at home checking his blood pressure given his asymptomatic status is normal blood pressure here. I think for completeness will check his labs will check a troponin will check an EKG. He will stop his lisinopril hydrochlorothiazide continue hydration and then continue to monitor his blood pressure at home he should check his blood pressure cuff against a machine at the pharmacy or can bring her back here. Would recommend recheck with Dr. Isaias aguilera a few days. Return to the ED any change concerns worsening. Of note is he has no chest pain breathing problem he has no coolness or pain in his arms. Addendum 11:00 a.m. patient's CRP is little bit elevated at 3.2, his white count is normal 11,000 hemoglobin 11.5 platelet count [id number]. He has got slight elevation is neutrophil count at 76.5%, his ER profile is unremarkable, troponin care troponin is negative at 0.01. His EKG by my read shows normal sinus rhythm no acute ST T wave changes no ST elevation. At this point I think will allow the patient go home hydrate stop his lisinopril hydrochlorothiazide recheck with primary care in the next 3-5 days, return to the ED sooner problems concerns worsening, would check his blood pressure cuff against a pharmacy machine or bring it back here will check it for him. He has comfortable plan. His blood pressure remains stable in the ER in the 140 range systolic. Lab Data Labs: Lab Results 06/13/24 06/13/24 Range/Units 10:07 10:20 WBC 11.00 (4.50-11.00) K/uL RBC 3.84 L (4.30-5.90) m/uL Hgb 11.5 L (13.5-17.5) gm/dL Hct 36.3 L (37.0-53.0) % MCV 95 (80-100) fL MCH 30 (26-34) pg MCHC 32 (32-36) gm/dL RDW Coeff of Maxi 13.9 (11.5-15.5) % Plt Count 323 (140-440) K/uL Neut % (Auto) 76.5 H (42.0-72.0) % Lymph % (Auto) 11.1 L (20-44) % Vermillion % (Auto) 10.5 (0.0-11.0) % Eos % (Auto) 1.2 (0.0-7.0) % Baso % (Auto) 0.3 (0.0-3.0) % Neut # (Auto) 8.40 H (1.7-7.0) K/uL Lymph # (Auto) 1.20 (0.90-2.90) K/uL Vermillion # (Auto) 1.20 H (0.00-0.90) K/UL Eos # (Auto) 0.13 (0.00-0.50) K/uL Baso # (Auto) 0.03 (0.00-0.30) K/uL Abs Immat Gran (auto) 0.04 (0.00-0.30) K/uL Imm/Tot Granulo (auto) 0.4 % Sodium 139 (135-149) mmol/L Potassium 4.6 (3.6-5.1) mmol/L Chloride 103 (96-114) mmol/L Carbon Dioxide 29 (20-32) mmol/L Anion Gap 7 (7-15) mEq/L BUN 20 (7-30) mg/dL Creatinine 1.1 (0.5-1.5) mg/dL Estimated Creat Clear 57.59 Estimated GFR 72 ml/min Glucose 107 (60-115) mg/dL Calcium 9.1 (8.4-10.6) mg/dL C-Reactive Protein 3.2 H (0.5-1.0) mg/dL POC Troponin I 0.01 (0.01-0.04) ng/ml Discharge Plan Discharge Clinical Impression: H/O viral illness, Diarrhea, Hypotension Patient Disposition: Home w/ Parent or Adult Condition: Stable Additional Instructions: Stop hydrochlorothiazide/lisinopril. May continue other medications. Adequate fluid hydration. Recommend continue to monitor blood pressure, made mono check her blood pressure machine against a farm is see machine or return to the ED to check it here. Light activity. Return to ED as needed. Activity Level: Light activity Discharge Diet: Regular Prescriptions: No Action metoprolol succinate 50 mg tablet extended release 24 hr 50 mg PO QHS simvastatin 80 mg tablet 80 mg PO QHS allopurinol 300 mg tablet 300 mg PO QHS lisinopril-hydrochlorothiazide 20-12.5 mg tablet 1 tab PO QHS aspirin 325 mg tablet 325 mg PO QHS Follow Up/Referrals: Jayro Mcconnell MD [Primary Care Provider] - Stand Alone Forms: [employer] Info Instructions
--- OUTSIDE RECORDS SUMMARY | 2024-06-13 10:27 | XMS_ITS | Clinical Summary ---
Author Organization [facility] Address [place], [place] [address] Care Team Providers Care Contract Negotiation Specialist Name Role Phone Jayro Mcconnell MD Primary Care Provider [phone] Ab Rm MD Unavailable [phone] Allergies No known active allergies Medications aspirin enteric coated (ECOTRIN) 325 mg tabletIndications:Coron gemini artery disease involving quinault coronary artery of quinault heart without angina pectoris Take 1 tablet [...] mg sublingual tabletIndications:Coron gemini artery disease involving quinault coronary artery of quinault heart without angina pectoris Place 1 Tablet (0.4 mg) under the tongue every 5 minutes if needed for Chest Pain. 25 Tablet 6 024 Active allopurinoL (ZYLOPRIM) 300 mg tabletIndications:Gout, unspecified cause, unspecified chronicity, unspecified site Take 1 Tablet (300 mg) by mouth once daily. 90 Tablet 3 4 2:51 PM MACHINIST/MACHINE BUILDER 024 Active metoprolol succinate (TOPROL XL) 50 mg sustained-release tabletIndications:Essen tial hypertension Take 1 Tablet (50 mg) by mouth once daily. 90 Tablet 3 4 5:21 PM CDT 024 Active simvastatin (ZOCOR) 80 mg tabletIndications:Pure hypercholesterolemia Take 1 Tablet (80 mg) by mouth at bedtime. 90 Tablet 3 5 4:17 PM MACHINIST/MACHINE BUILDER 024 Active lisinopril-hydrochlorot hiazide 20-12.5 mg tablet (PRINZIDE)Indications:E ssential hypertension Take 1 Tablet by mouth once daily. 90 Tablet 3 4 5:21 PM CDT 024 Active Active Problems Problem Noted Date Diagnosed Date Ascending aorta dilation 11/16/2023 Overview (11/16/2023): Diagnosed in 11/2023 with ascending aorta that measures 4 cm in diameter. Will do yearly monitoring with echocardiogram or CT. [facility] recommends surgery for 5.5 cm or greater as of 11/16/2023. Jayro Mcconnell MD Essential hypertension 08/16/2018 Seborrheic keratosis 07/22/2017 Overview (10/14/2017): 1 by 1.5 cm flesh colored lesion on right shoulder. 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 No history of [place]. Idiopathic gout 05/19/2015 DDD (degenerative disc disease), [...] on 10/19/2007 -same pain while walking around [place] 10/20/2007 -same pain 2 episodes 10/24/2007 -chest burning/tightness -some dyspnea -some diaphoresis -radiating to left arm and up into neck/jaw Gouty Arthropathy 03/23/2007 08/13/2013 Encounters Date Type Department Care Team Description 06/13/[address] [facility] [address] [place] [address] Jayro Mcconnell MD Low Blood Pressure 06/12/[address] [facility] [address] [place] [address] Jayro Mcconnell MD Heart Problem (?) 03/23/2024 7:15 AM MACHINIST/MACHINE BUILDER Office Visit [facility] [address] [place] [phone] Armani Velarde MD 03/23/2024 Lab Requisition [facility] [phone] Armani Velarde MD 03/23/[address] [facility] [address] [place] [address] Jayro Mcconnell MD 1 scan: (1-Ord) [facility] 03/23/2024 Orders Only [facility] Scanner 1 scan: (1-Ord) INCOMING RECORDS-COLONOSCOPY, [facility], 03/23/2024 03/18/2024 Travel from Last 3 Months [...] of stroke at 73; smoker Hypertension Other [place] Relation Name Status Comments Brother 1 Alive [...] on file Legal Sex Male 5:42 AM MACHINIST/MACHINE BUILDER Gender Identity Not on file Sexual Orientation [...] st Contact Info) Description 06/22/2024 8:50 AM MACHINIST/MACHINE BUILDER Office [facility] [address] [place] [address] Jayro Mcconnell MD [address] [place] [address] Health Maintenance Due Date Last Done Comments [...] history exists Medical Devices Implanted Type Area Sports Agent Device Identifier Shelf Expiration Date Model / Serial / Lot Shell Hip Rt Od58mm Moravian Adm X3 - [id number] Implanted:Qty: 1 on 08/20/[address] [facility] Right: Hip [employer] [id number]# / / [id number] Stem Hip Sz4 127deg Accolade Ii - [id number] Implanted:Qty: 1 on 08/20/[address] [facility] Right: Hip [employer] [id number]# / / [id number] Liner Hip Id28 Od58mm Adm X3 Pe - [id number] Implanted:Qty: 1 on 08/20/[address] [facility] Right: Hip [employer] [id number]# / / [id number] Head Hip Od28mm +4 Biolox Delta C-Taper Alumina Cer - [id number] Implanted:Qty: 1 on 08/20/[address] [facility] Right: Hip [employer] 6570-0-228 # / / [id number] Shell Hip Lt Od58mm Moravian Adm X3 - [id number] Implanted:Qty: 1 on 06/05/2015 by Ramiro Herron MD at [facility] Left: Hip [employer] [id number] # / / [id number] Stem Hip Sz4 127deg Accolade Ii - [id number] Implanted:Qty: 1 on 06/05/2015 by Ramiro Herron MD at [facility] Left: Hip [employer] [id number]# / / [id number] Liner Hip Id28 Od58mm Adm X3 Pe - [id number] Implanted:Qty: 1 on 06/05/2015 by Ramiro Herron MD at [facility] Left: Hip [employer] [id number]# / / [id number] Head Hip Od28mm +4 [employer] Delta C-Taper Alumina Cer - [id number] Implanted:Qty: 1 on 06/05/2015 by Ramiro Herron MD at [facility] Left: Hip [employer] 6570-0-228 # / / [id number] Procedures Procedure Name Priority Date/Time Associated Diagnosis Comments LAB TRACKING EVENT Routine 03/23/2024 8: 08 AM MACHINIST/MACHINE BUILDER PATH TISSUE EXAM Routine 03/23/2024 8:08 AM MACHINIST/MACHINE BUILDER COLONOSCOPY SCREENING Routine 03/23/2024 7:22 AM MACHINIST/MACHINE BUILDER Family history of colon cancer COLONOSCOPY SCREENING Routine 03/23/2024 12:00 AM MACHINIST/MACHINE BUILDER Screening for colon cancer SCAN-COLONOSCOPY 03/23/2024 12:0 0 AM MACHINIST/MACHINE BUILDER LIPID PANEL W REFLEX MEASURED LDL Routine 02/22/2024 3:54 PM CDT HYPERCHOLESTEROLEMI A ANTI HCV Routine 08/04/2016 10:17 AM CDT Need for hepatitis C screening test from Last 3 Months or Most Recently Relevant to Health Maintenance Results * LAB TRACKING EVENT (03/23/2024 8:08 AM MACHINIST/MACHINE BUILDER) Other (Other) Client Collect / Unknown 03/23/2024 8:08 AM MACHINIST/MACHINE BUILDER 03/23/2024 10:31 PM MACHINIST/MACHINE BUILDER us Armani Velarde MD LAB BILL ONLY Final Res ult Refinder by [facility] [address] [place] [address], * PATH TISSUE EXAM (03/23/2024 8:08 AM MACHINIST/MACHINE BUILDER) Case Report Pathology Report Case: [id number] Authorizing Provider: Armani Velarde MD Collected: 03/23/2024 0808 Ordering Location: [facility] Received: 03/24/2024 0526 Pathologist: Sedrick Alan MD Specimen: Ascending Colon Polyp 03/27/2024 4:55 PM MACHINIST/MACHINE BUILDER [facility] Final Diagnosis A) COLON, ASCENDING, POLYPECTOMY: 1. Tubular adenoma 2. Negative for high grade dysplasia 3. Per the colonoscopy report: a. Polyp size: 3 mm b. Resection: Complete c. Retrieval: Complete 03/27/2024 4:55 PM MACHINIST/MACHINE BUILDER [facility] Clinical Information Surveillance colonoscopy Colonoscopy findings: Single ascending colon polyp, completely removed. 03/27/2024 4:55 PM MACHINIST/MACHINE BUILDER [facility] [employer] [facility] Gross Description A) Received in formalin is a wilkes mucosal fragment measuring 2 mm in greatest dimension, which is entirely submitted in one cassette. It is labeled with the patient's name and designated ascending colon. Craig Velarde 03/26/2024 8:02 AM 03/27/2024 4:55 PM MACHINIST/MACHINE BUILDER [facility] Microscopic Description The final diagnosis is based on microscopic examination of appropriate sections of all specimens. 03/27/2024 4:55 PM MACHINIST/MACHINE BUILDER [facility] [employer] LABOR[facility]-C ENTRMS LABORATORY Additional Information Interpreted at [facility] Central Laboratory - [address] [facility] [address], [place] [address] 03/27/2024 4:55 PM MACHINIST/MACHINE BUILDER [facility] Other (Ascending Colon Polyp) 03/23/2024 8:08 AM MACHINIST/MACHINE BUILDER 03/24/2024 5:26 AM MACHINIST/MACHINE BUILDER us Armani Velarde MD PATHOLOGY/CYTOLOGY Final Result [facility] [address] [place] [address], [place] * SCAN-COLONOSCOPY (03/23/2024 12:00 AM MACHINIST/MACHINE BUILDER) us Scanner OTHER Final Result * COLONOSCOPY SCREENING [[id number]] (03/23/2024 12:00 AM MACHINIST/MACHINE BUILDER) us Jayro Mcconnell MD GI PROCEDURE ORD [...] LDL-C. Armani SS et al. MELINDA. 2013;310(19): 9459-6208 (http://education.Lavish Skate/faq/BHK242) CHOL/HDLC RATIO 3.1 <5.0 (calc) VTM-W ood Zack NON HDL CHOLESTEROL 92 <130 mg/dL (calc) VTM-W o[facility] Zack Comment: For patients with diabetes plus 1 major ASCVD risk factor, treating to a non-HDL-C goal of <100 mg/dL (LDL-C of <70 mg/dL) is considered a therapeutic option. Blood BLOOD SPECIMEN / Unknown 02/22/2024 3:54 PM CDT 02/22/2024 3:55 PM CDT Jayro Mcconnell MD CHEMISTRY Final Resu lt [employer] [facility] [address] [place] [address], [address] [address] * ANTI HCV (08/04/2016 10:17 AM CDT) HEPATITIS C ANTIBODY Non-Reacti ve Non-Reacti ve 08/04/2016 5:59 PM CDT [facility] [employer] [facility] Blood BLOOD SPECIMEN / Unknown Venipuncture / Unknown 08/04/2016 10:17 AM CDT 08/04/2016 10:17 AM CDT Narrative [facility] [employer] [facility] - 08/04/2016 5:59 PM CDT Antibodies to HCV not detected; does not exclude the possibility of exposure to HCV. us Jayro Mcconnell MD SEND OUTS Final Resu lt [facility] 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, 11/08 * Full Code (Latest Code Status [...] 7:59 AM 08/20/2013 4:24 PM Care Teams Contract Negotiation Specialist Relationship Specialty Start Date End Date [place] [address] [address] PCP - General 07/08/09 Ab Rm MD [address] [place] [address] Urology Surgery - Urology 08/23/11
--- OUTSIDE RECORDS SUMMARY | 2024-06-13 10:27 | XMS_ITS | Referral Summary ---
Author Organization [facility] Address [address] [place] [address] Care Team Providers Care School Clerk Name Role Phone Jayro Mcconnell MD Primary Care Provider +1- [phone] Allergies No known active allergies Medications allopurinol [...] on file Legal Sex Male 12:57 PM EMERGENCY MEDICAL TECHNICIAN BASIC Gender Identity Not on file Sexual Orientation Not on file Last Filed Vital Signs Vital Sign Reading Time Taken Comments Blood Pressure 172/99 05/13/2022 1:06 PM EMERGENCY MEDICAL TECHNICIAN BASIC Pulse 91 05/13/2022 1:06 PM EMERGENCY MEDICAL TECHNICIAN BASIC Temperature 36.1 C (97 F) 05/13/2022 12:00 PM EMERGENCY MEDICAL TECHNICIAN BASIC Respiratory Rate 16 05/13/2022 1:06 PM EMERGENCY MEDICAL TECHNICIAN BASIC Oxygen Saturation 97% 05/13/2022 1:06 PM EMERGENCY MEDICAL TECHNICIAN BASIC Inhaled Oxygen Concentration - - Weight 74 kg (163 lb 1.6 oz) 05/13/2022 7:23 AM EMERGENCY MEDICAL TECHNICIAN BASIC Height 170.2 cm (5' 7) 05/13/2022 7:23 AM EMERGENCY MEDICAL TECHNICIAN BASIC Body Mass Index 25.55 05/13/2022 7:23 AM EMERGENCY MEDICAL TECHNICIAN BASIC Plan of Treatment Not on file Insurance [employer] MED[employer]ARE Care Teams School Clerk Relationship Specialty Start Date End Date Jayro Mcconnell MD PCP - General Family Medicine 04/19/22
--- OUTSIDE RECORDS SUMMARY | 2024-06-13 10:27 | XMS_ITS | Clinical Summary ---
Author Organization [facility] Address [address] [place] [address] Care Team Providers Care Agency Recruiter Name Role Phone Jayro Mcconnell MD Primary Care Provider +1- [phone] Allergies No known active allergies Medications allopurinol [...] on file Legal Sex Male 12:57 PM JIG HAND Gender Identity Not on file Sexual Orientation Not on file Last Filed Vital Signs Vital Sign Reading Time Taken Comments Blood Pressure 172/99 05/13/2022 1:06 PM JIG HAND Pulse 91 05/13/2022 1:06 PM JIG HAND Temperature 36.1 C (97 F) 05/13/2022 12:00 PM JIG HAND Respiratory Rate 16 05/13/2022 1:06 PM JIG HAND Oxygen Saturation 97% 05/13/2022 1:06 PM JIG HAND Inhaled Oxygen Concentration - - Weight 74 kg (163 lb 1.6 oz) 05/13/2022 7:23 AM JIG HAND Height 170.2 cm (5' 7) 05/13/2022 7:23 AM JIG HAND Body Mass Index 25.55 05/13/2022 7:23 AM JIG HAND Plan of Treatment Health Maintenance Due Date [...] this topic Insurance [employer] MED[employer]ARE Care Teams Agency Recruiter Relationship Specialty Start Date End Date Jayro Mcconnell MD PCP - General Family Medicine 04/19/22
[2024-06-13 10:31] LABS: Basophils Absolute Auto 0.03 K/uL (0.00-0.30); Basophils Percent Auto 0.3 % (0.0-3.0); Eosinophils Absolute Auto 0.13 K/uL (0.00-0.50); Eosinophils Percent Auto 1.2 % (0.0-7.0); Hematocrit 36.3 % (37.0-53.0); Hemoglobin* 11.5 gm/dL (13.5-17.5); Immature Granulocytes Abs Auto 0.04 K/uL (0.00-0.30); Immature Granulocytes Pct Auto 0.4 %; Lymphocytes Percent Auto 11.1 % (20-44); Mean Corpuscular HGB Conc 32 gm/dL (32-36); Mean Corpuscular Hemoglobin 30 pg (26-34); Mean Corpuscular Volume 95 fL (80-100); Monocytes Percent Auto 10.5 % (0.0-11.0); Neutrophils Percent Auto 76.5 % (42.0-72.0); Platelet Count* 323 K/uL (140-440); RDW Coefficient of Variation % 13.9 % (11.5-15.5); Red Blood Count 3.84 m/uL (4.30-5.90)
[2024-06-13 10:35] LABS: Slide Review Reflex No
[2024-06-13 10:36] LABS: Troponin, Point-of-Care* 0.01 ng/ml (0.01-0.04)
[2024-06-13 10:39] LABS: Chloride* 103 mmol/L (96-114); Sodium* 139 mmol/L (135-149)
[2024-06-13 10:40] LABS: Potassium* 4.6 mmol/L (3.6-5.1)
[2024-06-13 10:42] LABS: Creatinine* 1.1 mg/dL (0.5-1.5); Est. Creatinine Clearance* 57.59; Estimated Glomerular Filt Rate 72 ml/min
[2024-06-13 10:43] LABS: Anion Gap 7 mEq/L (7-15); Blood Urea Nitrogen* 20 mg/dL (7-30); Calcium* 9.1 mg/dL (8.4-10.6); Carbon Dioxide* 29 mmol/L (20-32); Glucose* 107 mg/dL (60-115)
[2024-06-13 10:46] LABS: C Reactive Protein* 3.2 mg/dL (0.5-1.0)
== END 2024-06-13 11:14 | disposition home or self-care (01) ==
PROVIDERS: Emergency Provider Family Medicine; PCP Family Medicine
DX: I95.9 Hypotension, unspecified (principal); R19.7 Diarrhea, unspecified
CPT/HCPCS: 36415; 80048; 84484; 85025; 86140; 93005; 99284

== ENCOUNTER 2024-09-09 16:54 | Emergency (ER) | payer MEDICARE, SELFPAY ==
--- OUTSIDE RECORDS SUMMARY | 2024-09-09 16:56 | XMS_ITS | Clinical Summary ---
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 25 Tablet 6 4 Active allopurinoL (ZYLOPRIM) 300 mg tabletIndications :Gout, unspecified cause, unspecified chronicity, unspecified site Take 1 Tablet (300 mg) by mouth once daily. 90 Tablet 3 07/23/2024 11:10 AM CDT 4 Active lisinopriL (PRINIVIL; ZESTRIL) 20 mg tabletIndications :Essential hypertension Take 1 Tablet (20 mg) by mouth once daily. 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 90 Tablet 3 08/31/2024 11:44 AM CDT 5 Active predniSONE 5 mg tabletIndications :PMR (polymyalgia rheumatica) (HC) Take TWO AND ONE-HALF Tablets (12.5 mg) by mouth once daily with a meal. Wait until they call for this. 100 Tablet 2 5 Active amLODIPine 2.5 mg tabletIndications :Essential hypertension Take 1 Tablet (2.5 mg) by mouth once daily in the evening. 90 Tablet 3 08/31/2024 11:52 AM CDT 5 Active metoprolol succinate (Toprol XL) 25 mg Sustained-Release tabletIndications :Essential hypertension Take 1 Tablet (25 mg) by mouth once daily. 60 Tablet 09/05/2024 2:30 PM CDT 5 Active metoprolol succinate (Toprol XL) 25 mg Sustained-Release tabletIndications :Essential hypertension Take 1 Tablet (25 mg) by mouth once daily. 90 Tablet 06/18/2024 9:35 AM MOLECULAR TECHNOLOGIST 5 09/04/19 25 Discontinu ed(Reorder (E-cancel not sent)) predniSONE 5 mg tabletIndications :PMR (polymyalgia rheumatica) (HC) Take 3 Tablets (15 mg) by mouth once daily with a meal. 100 Tablet 2 5 09/01/19 25 Discontinu ed(*Medica tion adjustment ) Active Problems Problem Noted Date Diagnosed Date PMR (polymyalgia rheumatica) 07/27/2024 Overview (07/27/2024): UpToDate advises: Prednisone 15 mg daily as the starting dose. Taper by 2.5 mg every 4 weeks until down to 10 mg daily and then go down by 1 mg every 4 weeks. Ascending aorta dilation 11/16/2023 Overview (11/16/2023): Diagnosed in 11/2023 with ascending aorta that measures 4 cm in diameter. Will do yearly monitoring with echocardiogram or CT. [facility] recommends surgery for 5.5 cm or greater as of 11/16/2023. Yefri Mcconnell MD Essential hypertension 08/16/2018 Overview (06/22/2024): Prior to his recent illness that caused his blood pressure to be low, he was taking: Metoprolol XL 50 mg in the evening Lisinopril-hyrdrochlorothiazide 20-12.5 in the evening. Seborrheic keratosis 07/22/2017 Overview (10/14/2017): 1 by 1.5 cm flesh colored lesion on right shoulder. 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 No history of [place]. Idiopathic gout 05/19/2015 DDD (degenerative disc disease), [...] on 10/19/2007 -same pain while walking around [place] 10/20/2007 -same pain 2 episodes 10/24/2007 -chest burning/tightness -some dyspnea -some diaphoresis -radiating to left arm and up into neck/jaw Gouty Arthropathy 03/23/2007 08/13/2013 Encounters Date Type Department Care Team Description 09/03/2024 [facility] [place] [address] Yefri Mcconnell MD Refill Request (metoprolol) 08/31/2024 9:40 AM CDT [facility] [address] Yefri Mcconnell MD Follow Up (Go over lab results/Blood pressure); Immunization/Injection 08/31/2024 Travel 08/28/2024 11:10 AM CDT [facility] [address] [place] [address] Mis Omer PA Head Injury 08/28/2024 10:00 AM CDT Orders Only [facility] [address] [facility] [address] Lab, [place] [facility] 08/28/2024 Travel 08/26/2024 Travel 08/23/2024 Travel 08/21/2024 Telephone [facility] [address] Yefri Mcconnell MD Imaging (Echo results from 06-22-24) 08/03/2024 Telephone [facility] [place] [address] Yefri Mcconnell MD Medication Management (prednisone) 07/27/2024 8:50 AM CDT [facility] [address] [place] [address] Yefri Mcconnell MD Musculoskeletal Problem (Concerns with some type of arthritis - follow up); Results (CPR and ESR elevated) 07/27/2024 Travel 07/26/2024 Travel 07/24/2024 11:30 AM CDT Orders Only [facility] [address] [place] [address] Lab, [facility] Lab 07/23/2024 Travel 07/22/2024 Telephone [facility] [address] [place] [address] Yefri Mcconnell MD FYI 07/21/2024 Orders Only [facility] [address] [place] [address] Yefri Mcconnell MD <No scans attached> 07/20/2024 3:10 PM CDT [facility] [address] [place] [address] Yefri Mcconnell MD Blood Pressure (Blood pressure has been running higher lately -brought in home readings) 07/20/2024 Travel 07/13/2024 9:55 AM MOLECULAR TECHNOLOGIST Office Visit [facility] [address] [place] [address] Jennifer Lake DO Hand Pain/problem (Swelling and pain in both hands, started in June ); Arm Pain/problem (Pain in both arms, sharp pain ) 07/13/2024 Travel 06/28/2024 Orders Only [facility] [address] [place] [address] Yefri Mcconnell MD <No scans attached> 06/22/2024 12:40 PM MOLECULAR TECHNOLOGIST [facility] [address] [place] [address] Yefri Mcconnell MD Medication Management (Follow up from previously low blood pressure) 06/22/2024 8:00 AM MOLECULAR TECHNOLOGIST Ancillary Procedure [facility] [address] [place] [address] 06/22/2024 Travel 06/19/2024 Travel 06/15/2024 12:40 PM MOLECULAR TECHNOLOGIST [facility] [address] [place] [address] Yefri Mcconnell MD ER Follow up ([facility] for low blood pressure) 06/15/2024 Travel 06/14/2024 1:00 PM MOLECULAR TECHNOLOGIST Nurse/Clinic Staff Only [facility] [address] [place] [address] Blood Pressure 06/14/2024 Travel 06/13/2024 Nurse Triage [facility] [address] [place] [address] Yefri Mcconnell MD Low Blood Pressure 06/12/2024 Nurse Triage [facility] [address] [place] [address] Yefri Mcconnell MD Heart Problem (?) from Last 3 Months Immunizations Immunization Administration Dates Next Due Amb Influenza, Inactivated A IIV4 (Age 65+ Years) Preserv Free 02/07/2020 COVID-19 VACCINE SPIKEVAX (M ODERNA 50MCG/0.5ML) 12YO+ PFS 08/31/2024,03/02/2024 COVID-19 vaccine (Moderna 100mcg/0.5mL) PF, MDV 08/07/2020,07/10/2020 COVID-19 vaccine (Pfizer-Bio NTech 30mcg/0.3mL) 12YO+ BIVALENT PF, MDV 03/15/2022 Influenza, High-dose Quadrivalent Inactivated Influenza, Inactivated AIIV4 (Age 65+ Years) Preserv Free 03/15/2022 Influenza, Inactivated IIV3 (Age 65+ Years) Preserv Free 07/10/2019 Pneumococcal Poly,23-Valent (Pneumovax) 10/18/19 20 Pneumococcal conj 13-Valent (Prevnar 13) 06/10/2 019 Td (Age >=7 Years) 06/28/2005 Tdap 04/23/2016 Zoster (Shingrix-RZV, recombinant) 09/04/2020, Zoster (Zostavax-ZVL, live) 02/26/2013 Family History Medical History Relation Name Comments Arthritis Father bilateral hip r eplacements Heart Disease Father needed 3 stent s at age 88 Hypertension Father later in life Stroke Mother of stroke at 71; smoker Hypertension Other [place] Relation Name Status Comments Brother 1 Alive Brother 2 Alive Brother 3 Alive Father Alive Mother Alive Other Sister 1 Galina Alive Sister 2 [...] or isolated from those around you? 0 07/26/2024 Financial Resource Strain Answer Date R ecorded Difficulty of Paying Living Expenses 3 07/13/2024 Difficulty of Paying Living Expenses Not on file 07/13/2024 Food Insecurity Answer Date Recorded Do you worry your food will run out before you are able to buy more? 1 07/26/2024 Transportation Needs Answer Date Record ed Does lack of transportation keep you from medica l appointments? 1 07/26/2024 Does lack of transportation keep you from work, meetings or getting things that you need? 1 07/26/2024 Housing Stability Answer Date Recorded What is your housing situation today? 1 07/26/2024 Utilities Answer Date Recorded Do you have trouble paying f or utilities (for example, heat, electricity, water, phone)? 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 Not on file Not on file Obstetrics History Last Filed Vital Signs Vital Sign Reading Time Taken Comments Blood Pressure 144/84 08/31/2024 10:02 AM CDT Pulse 81 08/31/2024 9:23 AM CDT Temperature 36.5 C (97.7 F) 08/31/2024 9:23 AM CDT Respiratory Rate 16 12/21/2022 12:4 0 PM CDT Oxygen Saturation 100% 08/31/2024 9:23 AM CDT Inhaled Oxygen Concentration - - Weight 78.9 kg (173 lb 14.4 oz) 08/31/2024 9:23 AM CDT Height 171.1 cm (5' 7.36) 03/02/2024 1 1:21 AM CDT Body Mass Index 26.94 03/02/2024 11:21 AM CDT Plan of Treatment Upcoming Encounters Date Type Department Care Team (Late st Contact Info) Description 10/29/2024 10:15 AM CDT Orders Only [facility] [address] [place] [address] Willie Kwok 11/02/2024 9:15 AM CDT [facility] [address] [place] [address] Yefri Mcconnell MD [address] [place] [address] Health Maintenance Due Date Last Done Comments RSV vaccine for adults or (1 - Risk 60-74 years 1-dose series) 2012 Influenza Vaccine (Season Ended) 2025 03/15/2022, 02/07/2020, 07/10/2019 Depression screening for age 12+ 02/21/2025 02/22/2024, 06/10/2023, 12/16/2021, Additional history exists Medicare Wellness for age 65+ 02/22/2025, 12/16/2021, 11/19/2020, Additional history exists BMI (ht and wt on same day) for age 18+ 03/02/2025 03/02/2024, 02/22/2024, 10/26/2023, Additional history exists Tetanus booster 04/23/2026 04/23/2016, 06/28/2005 Colonoscopy through age 75 03/23/202903/23, 03/23/2024, 03/23/2024, Additional history exists Lipids for age 45-75 08/28/2029 08/28/2024, 02/22/2024, 07/08/2023, Additional history exists Tdap Completed 04/23/2016 Hepatitis C screening for ag e 18-79 Completed 08/04/2016 Pneumococcal series for age 50+ Completed , 10/16/2018 Zoster (shingles) series for age 50+ Completed 09/04/2020, 05/14/2020, 02/26/2013 COVID-19 vaccine series Completed 09/01/19, 03/02/2024, 02/07/2023, Additional history exists Medical Devices Implanted Type Area Order Dispatcher Device Identifier Shelf Expiration Date Model / Serial / Lot Shell Hip Rt Od58mm Confucianism Adm X3 - [id number] Implanted:Qty: 1 on 08/20/[address] [facility] Right: Hip [employer] [id number]# / / [id number] Stem Hip Sz4 127deg Accolade Ii - [id number] Implanted:Qty: 1 on 08/20/[address] [facility] Right: Hip [employer] [id number]# / / [id number] Liner Hip Id28 Od58mm Adm X3 Pe - [id number] Implanted:Qty: 1 on 08/20/[address] [facility] Right: Hip [employer] [id number]# / / [id number] Head Hip Od28mm +4 Biolox Delta C-Taper Alumina Cer - [id number] Implanted:Qty: 1 on 08/20/[address] [facility] Right: Hip [employer] [id number] # / / [id number] Shell Hip Lt Od58mm Confucianism Adm X3 - [id number] Implanted:Qty: 1 on 06/05/2015 by Ramiro Herron MD at [facility] Left: Hip [employer] [id number] # / / [id number] Stem Hip Sz4 127deg Accolade Ii - [id number] Implanted:Qty: 1 on 06/05/2015 by Ramiro Herron MD at [facility] Left: Hip [employer] [id number]# / / [id number] Liner Hip Id28 Od58mm Adm X3 Pe - [id number] Implanted:Qty: 1 on 06/05/2015 by Ramiro Herron MD at [facility] Left: Hip [employer] [id number]# / / [id number] Head Hip Od28mm +4 Biolox Delta C-Taper Alumina Cer - [id number] Implanted:Qty: 1 on 06/05/2015 by Ramiro Herron MD at 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 PSA TOTAL Routine 08/28/2024 10:22 AM CDT Prostate cancer screening HEMOGLOBIN A1C Routine 08/28/2024 10:22 AM CDT Prediabetes C-REACTIVE PROTEIN Routine 07/24/2024 11 :28 AM CDT Elevated sed rate SEDIMENTATION RATE Routine 07/24/2024 11 :28 AM CDT Elevated sed rate CBC WITH AUTO DIFFERENTIAL Routine 07/20/2024 4:25 PM CDT Other iron deficiency anemia SEDIMENTATION RATE Routine 07/20/2024 4: 25 PM CDT Elevated sed rate C-REACTIVE PROTEIN Routine 07/20/2024 4: 25 PM CDT Elevated sed rate BASIC METABOLIC PANEL Routine 07/20/2024 4:25 PM CDT Essential hypertension SEDIMENTATION RATE Routine 07/13/2024 10 :41 AM MOLECULAR TECHNOLOGIST Myalgia C-REACTIVE PROTEIN Routine 07/13/2024 10 :41 AM MOLECULAR TECHNOLOGIST Myalgia URIC ACID Routine 07/13/2024 10:41 AM MOLECULAR TECHNOLOGIST Myalgia CBC WITH AUTO DIFFERENTIAL Routine 07/13/2024 10:41 AM MOLECULAR TECHNOLOGIST Myalgia COMP METABOLIC PANEL Routine 07/13/2024 10:41 AM MOLECULAR TECHNOLOGIST Myalgia CK TOTAL Routine 07/13/2024 10:41 AM MOLECULAR TECHNOLOGIST Myalgia ANTINUCLEAR ANTIBODY BY IFA Routine 07/13/2024 10:41 AM MOLECULAR TECHNOLOGIST Myalgia TSH WITH REFLEX Routine 07/13/2024 10:41 AM MOLECULAR TECHNOLOGIST Myalgia PARVOVIRUS B19 PCR Routine 07/13/2024 10 :41 AM MOLECULAR TECHNOLOGIST Myalgia UA W/ SEDIMENT EXAM REFLEXED PER CRITERIA Routine 06/22/2024 1:53 PM MOLECULAR TECHNOLOGIST Myalgia CK TOTAL Routine 06/22/2024 1:45 PM MOLECULAR TECHNOLOGIST Myalgia CBC WITH AUTO DIFFERENTIAL Routine 06/22/2024 1:45 PM MOLECULAR TECHNOLOGIST Myalgia ALT (SGPT) Routine 06/22/2024 1:45 PM MOLECULAR TECHNOLOGIST Myalgia AST (SGOT) Routine 06/22/2024 1:45 PM MOLECULAR TECHNOLOGIST Myalgia BASIC METABOLIC PANEL Routine 06/22/2024 1:44 PM MOLECULAR TECHNOLOGIST Myalgia ECHO TTE COMPLETE WO CONTRAST BRIA 06/22/2024 9:08 AM MOLECULAR TECHNOLOGIST Other specified hypotension 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 SED RATE BY ARLETH WARNER 6 < OR = 20 mm/h [facility] Blood BLOOD SPECIMEN / Unknown 08/28/2024 10:22 AM CDT 08/28/2024 10:23 AM CDT Yefri Mcconnell MD HEMATOLOGY Final Resu lt [employer] [address] [place] [address], [facility] [address] [place] [address] * (ABNORMAL) HEMOGLOBIN A1C (08/28/2024 10:22 AM CDT) HEMOGLOBIN A1C 5.8(H) <5.7 % [facility] Comment: For someone without known diabetes, a hemoglobin A1c value between 5.7% and 6.4% is consistent with prediabetes and should be confirmed with a follow-up test. For someone with known diabetes, a value <7% indicates that their diabetes is well controlled. A1c targets should be individualized based on duration of diabetes, age, comorbid conditions, and other considerations. This assay result is consistent with an increased risk of diabetes. Currently, no consensus exists regarding use of hemoglobin A1c for diagnosis of diabetes for children. Blood BLOOD SPECIMEN / Unknown 08/28/2024 10:22 AM CDT 08/28/2024 10:23 AM CDT us Yefri Mcconnell MD CHEMISTRY Final Resu lt [facility] [address] [place] [address], [place] [phone] [facility] [address] [place] [address] * (ABNORMAL) LIPID PANEL W REFLEX MEASURED LDL (08/28/2024 10:22 AM CDT) CHOLESTEROL, TOTAL 231(H) <200 mg/dL [facility] HDL CHOLESTEROL 54 > OR = 40 mg/dL [facility] TRIGLYCERIDES 201(H) <150 mg/dL [facility] Comment: If a non-fasting specimen was collected, consider repeat triglyceride testing on a fasting specimen if clinically indicated. Elli et al. J. of Clin. Lipidol. 2015;9:129-169. LDL-CHOLESTEROL 142(H) mg/dL (calc) [facility] Comment: Reference range: <100 Desirable range <100 mg/dL for primary prevention; <70 mg/dL for patients with CHD or diabetic patients with > or = 2 CHD risk factors. LDL-C is now calculated using the Armani-Andressa calculation, which is a validated novel method providing better accuracy than the Friedewald equation in the estimation of LDL-C. Armani SS et al. MELINDA. 2013;310(19): 3205-1329 (http://education.[employer]/faq/FPV605) CHOL/HDLC RATIO 4.3 <5.0 (calc) [facility] NON HDL CHOLESTEROL 177(H) <130 mg/dL (calc) [facility] Comment: For patients with diabetes plus 1 major ASCVD risk factor, treating to a non-HDL-C goal of <100 mg/dL (LDL-C of <70 mg/dL) is considered a therapeutic option. Blood BLOOD SPECIMEN / Unknown 08/28/2024 10:22 AM CDT 08/28/2024 10:23 AM CDT Yefri Mcconnell MD CHEMISTRY Final Resu lt Performing Organization Address [facility]/ZIP Co de Phone Number [employer] [facility] [address] [place] [address], [place] [phone] [facility] [address] [place] [address] * C-REACTIVE PROTEIN (08/28/2024 10:22 AM CDT) Only the most recent of4 resultswithin the time period is included. C-REACTIVE PROTEIN <3.0 <8.0 mg/L [facility] Blood BLOOD SPECIMEN / Unknown 08/28/2024 10:22 AM CDT 08/28/2024 10:23 AM CDT Yefri Mcconnell MD CHEMISTRY Final Resu lt Performing Organization Address [facility] Co de Phone Number [employer] [facility] [address] [place] [address], [place] [phone] [facility] [address] [place] [address] * (ABNORMAL) PSA TOTAL (DIAG OR SCREEN) (08/28/2024 10:22 AM CDT) PSA, TOTAL 4.66(H) < OR = 4.00 ng/mL [facility] Comment: The total PSA value from this assay system is standardized against the WHO standard. The test result will be approximately 20% lower when compared to the equimolar-standardized total PSA (Valeriano [place]). Comparison of serial PSA results should be interpreted with this fact in mind. This test was performed using the Siemens chemiluminescent method. Values obtained from different assay methods cannot be used interchangeably. PSA levels, regardless of value, should not be interpreted as absolute evidence of the presence or absence of disease. Blood BLOOD SPECIMEN / Unknown 08/28/2024 10:22 AM CDT 08/28/2024 10:23 AM CDT Yefri Mcconnell MD CHEMISTRY Final Resu lt [facility] [employer] [facility] [address] [facility] [place] [address], [place] [phone] [facility] [address] [place] [address] * BASIC METABOLIC PANEL (08/28/2024 10:22 AM CDT) Only the most recent of3 resultswithin the time period is included. [facility] GLUCOSE 90 65 - 99 mg/dL [facility] Comment: Fasting reference interval UREA NITROGEN (BUN) 19 7 - 25 mg/dL [facility] CREATININE 1.24 0.70 - 1.28 mg/dL [facility] EGFR 62 > OR = 60 mL/min/1. 73m2 [facility] BUN/CREATININE RATIO SEE NOTE: (calc) [facility] Comment: Not Reported: BUN and Creatinine are within reference range. SODIUM 145 135 - 146 mmol/L [facility] POTASSIUM 4.3 3.5 - 5.3 mmol/L [facility] CHLORIDE 107 98 - 110 mmol/L [facility] CARBON DIOXIDE 29 20 - 32 mmol/L [facility] ELECTROLYTE BALANCE 9 7 - 17 mmol/L (calc) [facility] CALCIUM 9.6 8.6 - 10.3 mg/dL [facility] Blood BLOOD SPECIMEN / Unknown 08/28/2024 10:22 AM CDT 08/28/2024 10:23 AM CDT Yefri Mcconnell MD CHEMISTRY Final Resu lt [employer] [facility] [address] [facility] [place] [address], [place] [phone] [facility] [address] [place] [address] * (ABNORMAL) CBC AND DIFFERENTIAL (07/20/2024 4:25 PM CDT) Only the most recent of3 resultswithin the time period is included. WHITE BLOOD CELL COUNT 11.1(H) 3.8 - 10.8 Thousand/u L [facility] RED BLOOD CELL COUNT 4.54 4.20 - 5.80 Million/uL [facility] HEMOGLOBIN 12.6(L) 13.2 - 17.1 g/dL [facility] HEMATOCRIT 40.7 38.5 - 50.0 % [facility] MCV 89.6 80.0 - 100.0 fL [facility] MCH 27.8 27.0 - 33.0 pg [facility] MCHC 31.0(L) 32.0 - 36.0 g/dL [facility] Comment: For adults, a slight decrease in the calculated MCHC value (in the range of 30 to 32 g/dL) is most likely not clinically significant; however, it should be interpreted with caution in correlation with other red cell parameters and the patient's clinical condition. RDW 13.6 11.0 - 15.0 % [facility] PLATELET COUNT 488(H) 140 - 400 Thousand/u L [facility] MPV 11.2 7.5 - 12.5 fL [facility] ABSOLUTE NEUTROPHILS 7,970(H) 1,500 - 7,800 cells/uL [facility] ABSOLUTE LYMPHOCYTES 2,087 850 - 3,900 cells/uL [facility] ABSOLUTE MONOCYTES 888 200 - 950 cells/uL [facility] ABSOLUTE EOSINOPHILS 111 15 - 500 cells/uL [facility] ABSOLUTE BASOPHILS 44 0 - 200 cells/uL [facility] NEUTROPHILS 71.8 % [facility] LYMPHOCYTES 18.8 % [facility] MONOCYTES 8.0 % [facility] EOSINOPHILS 1.0 % [facility] BASOPHILS 0.4 % [facility] Blood BLOOD SPECIMEN / Unknown 07/20/2024 4:25 PM CDT 07/20/2024 4:26 PM CDT Yefri Mcconnell MD HEMATOLOGY Final Resu lt Performing Organization Address [facility] Systems/ZIP Co de Phone Number [employer] [facility] [address] [place] [address], [place] [phone] [facility] [address] [place] [address] * ANTINUCLEAR ANTIBODY BY IFA (07/13/2024 10:41 AM MOLECULAR TECHNOLOGIST) JONEL SCREEN, IFA NEGATIVE NEGATIVE [facility]- Sanjay [place] Comment: JONEL IFA is a first line screen for detecting the presence of up to approximately 150 autoantibodies in various autoimmune diseases. A negative JONEL IFA result suggests an JONEL-associated autoimmune disease is not present at this time, but is not definitive. If there is high clinical suspicion for Sjogren's syndrome, testing for anti-SS-A/Ro antibody should be considered. Anti-Aleta-1 antibody should be considered for clinically suspected inflammatory myopathies. AC-0: Negative International Consensus on JONEL Patterns (https://doi.org/10.1515/ifdo-7866-0858) For additional information, please refer to http://education.[employer]/faq/NUJ895 (This link is being provided for informational/ educational purposes only.) Blood BLOOD SPECIMEN / Unknown 07/13/2024 10:41 AM MOLECULAR TECHNOLOGIST 07/13/2024 10:42 AM MOLECULAR TECHNOLOGIST Jennifer Lake DO CHEMISTRY Final Resul t Performing Organization Address City/[facility]/ZIP Co de Phone Number [employer] [facility] [address] [place] [address], [place] [phone] [facility] [address] [place] [address] * PARVOVIRUS B19 PCR (07/13/2024 10:41 AM MOLECULAR TECHNOLOGIST) SOURCE PARVOPCR Blood [employer] PARVOVIRUS B19 DNA, QL REAL TIME PCR Not Detected Not Detected [facility] Comment: (Note) The primers/probe used in this assay will detect parvovirus B19 and V9 (genotypes 1 and 3) but may not detect parvovirus genotype 2. The majority of circulating Parvovirus B19 strains in the [place] are genotype 1. Genotype 2 is not believed to circulate widely in the [place], but has been associated with similar clinical features as genotype 1. Genotype 3 is most prevalent in some countries. This test was developed and its analytical performance characteristics have been determined by [email or web address]. It has not been cleared or approved by the U.S. Food and Drug Administration. This assay has been validated pursuant to the CLIA regulations and is used for clinical purposes. [facility] med fusion [address] [place] [address],[address] [place] [address] Bryant Amin MD, PhD Blood BLOOD SPECIMEN / Unknown 07/13/2024 10:41 AM MOLECULAR TECHNOLOGIST 07/13/2024 10:42 AM MOLECULAR TECHNOLOGIST Jennifer Lake DO SEND OUTS Final Resul t [address] [address], [facility] [address] [place] [address], [address] [place] [address] * TSH WITH REFLEX (07/13/2024 10:41 AM MOLECULAR TECHNOLOGIST) TSH W/REFLEX TO FT4 2.47 0.40 - 4.50 mIU/L [facility] [place] Blood BLOOD SPECIMEN / Unknown 07/13/2024 10:41 AM MOLECULAR TECHNOLOGIST 07/13/2024 10:42 AM MOLECULAR TECHNOLOGIST Jennifer Lake DO CHEMISTRY Final Resul t [employer] [facility] [address] [place] [address], [place] [phone] [facility] [address] [place] [address] * URIC ACID (07/13/2024 10:41 AM MOLECULAR TECHNOLOGIST) [facility] URIC ACID 4.2 4.0 - 8.0 mg/dL [employer] ( [facility] ) [facility] woo Spencere Comment: Therapeutic target for gout patients: <6.0 mg/dL Blood BLOOD SPECIMEN / Unknown 07/13/2024 10:41 AM MOLECULAR TECHNOLOGIST 07/13/2024 10:42 AM MOLECULAR TECHNOLOGIST Jennifer Lake DO CHEMISTRY Final Resul t Performing Organization Address [facility] Co de Phone Number [employer] [facility] [address] [place] [address], [facility] [address] [place] [address] * CK TOTAL (07/13/2024 10:41 AM MOLECULAR TECHNOLOGIST) Only the most recent of2 resultswithin the time period is included. [facility] CREATINE KINASE, TOTAL 44 19 - 278 U/L [facility] Blood BLOOD SPECIMEN / Unknown 07/13/2024 10:41 AM MOLECULAR TECHNOLOGIST 07/13/2024 10:42 AM MOLECULAR TECHNOLOGIST Jennifer Lake DO CHEMISTRY Final Resul t Performing Organization Address [facility]/ZIP Co de Phone Number [employer] [facility] [address] [facility] [place] [address], [place] [phone] [facility] [address] [place] [address] * (ABNORMAL) COMP METABOLIC PANEL (07/13/2024 10:41 AM MOLECULAR TECHNOLOGIST) [facility] GLUCOSE 92 65 - 99 mg/dL [facility] [place] Comment: Fasting reference interval UREA NITROGEN (BUN) 15 7 - 25 mg/dL [facility] CREATININE 0.97 0.70 - 1.28 mg/dL [facility] EGFR 83 > OR = 60 mL/min/1. 73m2 [facility] BUN/CREATININE RATIO SEE NOTE: 6 - 22 (calc) [facility] Comment: Not Reported: BUN and Creatinine are within reference range. SODIUM 143 135 - 146 mmol/L [facility] POTASSIUM 4.5 3.5 - 5.3 mmol/L [facility] CHLORIDE 105 98 - 110 mmol/L [facility] CARBON DIOXIDE 28 20 - 32 mmol/L [facility] CALCIUM 9.5 8.6 - 10.3 mg/dL [facility] PROTEIN, TOTAL 7.1 6.1 - 8.1 g/dL [facility] ALBUMIN 3.9 3.6 - 5.1 g/dL [facility] GLOBULIN 3.2 1.9 - 3.7 g/dL (calc) [facility] ALBUMIN/GLOBULIN RATIO 1.2 1.0 - 2.5 (calc) [facility] BILIRUBIN, TOTAL 0.4 0.2 - 1.2 mg/dL [facility] ALKALINE PHOSPHATASE 79 35 - 144 U/L [facility] AST 11 10 - 35 U/L [facility] ALT 5(L) 9 - 46 U/L [facility] Blood BLOOD SPECIMEN / Unknown 07/13/2024 10:41 AM MOLECULAR TECHNOLOGIST 07/13/2024 10:42 AM MOLECULAR TECHNOLOGIST us Jennifer Lake DO CHEMISTRY Final Resul t [employer] [facility] [address] [place] [address], [facility] [address] [place] [address] * UA W/ SEDIMENT EXAM REFLEXED PER CRITERIA (06/22/2024 1:53 PM MOLECULAR TECHNOLOGIST) COLOR Yellow Yellow Color 06/22/2024 10:58 PM MOLECULAR TECHNOLOGIST [facility] CLARITY Clear Clear Clarity 06/22/2024 10:58 PM MOLECULAR TECHNOLOGIST [facility] SPECIFIC GRAVITY,URINE 1.015 1.010, 1.015, 1.020, 1.025 06/22/2024 10:58 PM MOLECULAR TECHNOLOGIST [facility] PH,URINE 6.0 6.0, 7.0, 8.0, 5.5, 6.5, 7.5, 8.5 06/22/2024 10:58 PM [facility] UROBILINOGEN, QUALITATIVE Normal Normal EU/dl 06/22/2024 10:58 PM [facility] PROTEIN, URINE Negative Negative mg/dL 06/22/2024 10:58 PM [facility] GLUCOSE, URINE Negative Negative mg/dL 06/22/2024 10:58 PM MOLECULAR TECHNOLOGIST [facility] KETONES,URINE Negative Negative mg/dL 06/22/2024 10:58 PM [facility] BILIRUBIN,URI NE Negative Negative 06/22/2024 10:58 PM MOLECULAR TECHNOLOGIST [facility] OCCULT BLOOD,URINE Negative Negative 06/22/2024 10:58 PM MOLECULAR TECHNOLOGIST [facility] NITRITE Negative Negative 06/22/2024 10:58 PM MOLECULAR TECHNOLOGIST [facility] LEUKOCYTE ESTERASE Negative Negative 06/22/2024 10:58 PM [facility] Urine URINE SPECIMEN / Unknown Non-Blood / Unknown 06/22/2024 1:53 PM MOLECULAR TECHNOLOGIST 06/22/2024 1:53 PM MOLECULAR TECHNOLOGIST us Yefri Mcconnell MD URINE Final Resu lt [facility] [address] [place] [address], [place] * (ABNORMAL) ALT (SGPT) (06/22/2024 1:45 PM MOLECULAR TECHNOLOGIST) Pathologist [facility] ALT 8(L) 9 - 46 U/L [facility] Blood BLOOD SPECIMEN / Unknown 06/22/2024 1:45 PM MOLECULAR TECHNOLOGIST 06/22/2024 1:45 PM MOLECULAR TECHNOLOGIST Yefri Mcconnell MD CHEMISTRY Final Resu lt [facility] [address] [place] [address], [place] [phone] [facility] [address] [place] [address] * AST (SGOT) (06/22/2024 1:45 PM MOLECULAR TECHNOLOGIST) Pathologist [facility] AST 14 10 - 35 U/L [facility] Blood BLOOD SPECIMEN / Unknown 06/22/2024 1:45 PM MOLECULAR TECHNOLOGIST 06/22/2024 1:45 PM MOLECULAR TECHNOLOGIST Yefri Mcconnell MD CHEMISTRY Final Resu lt Performing Organization Address City/[facility]/ZIP Co de Phone Number [facility] [employer] [facility] [address] [place] [address], [place] [phone] [facility] [address] [place] [address] * ECHO TTE COMPLETE WO CONTRAST (06/22/2024 9:08 AM MOLECULAR TECHNOLOGIST) Pathologist [facility] AORTIC VALVE MEAN PG 3 mmHg EJECTION FRACTION 62 % PEAK TR VELOCITY 1.9 m/s LVEDD 3.5 cm EJECTION FRACTION 60 - 65% Anatomical Region Laterality Modality Ultrasound 06/22/2024 8:15 AM MOLECULAR TECHNOLOGIST Narrative 06/22/2024 11:59 AM MOLECULAR TECHNOLOGIST ECHOCARDIOGRAM ARMANI VELARDE : 1950 73 years Study Date: 06/22/2024 8:15:48 AM Gender: M BP: 112/71 mmHg Height: 170.00 cm BSA: 1.88 m Weight: 77.00 kg Tech: [facility] Referring MD: YEFRI MCCONNELL Site: [facility] Reading Location: MOBILE OP Patient Location: Outpatient. Procedure: 2D, Color Doppler and Spectral Doppler. 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 Final Impressions: 1. Normal LV size, mildly increased wall thickness, normal global systolic function with an estimated EF of 60 - 65%. 2. Grade 2 pattern of LV diastolic filling. 3. The aortic valve is trileaflet and normal, no stenosis and trivial regurgitation. 4. The ascending aorta is dilated with a maximal diameter of 3.8 cm. Chamber Sizes and Function Normal left ventricular size, mildly increased wall thickness, normal global systolic function with an estimated EF of 60 - 65%. No resting regional wall motion abnormality visualized. Left atrial size is normal. Left atrial pressure is normal. Right ventricular cavity size is normal, global systolic RV function is normal. RV wall thickness is normal. The right atrium is normal. Right atrial volume index is 24 ml/m . Right atrial area is 16 cm . The pulmonary artery is of normal size and origin. The sinus of Valsalva is normal sized. The ascending aorta is dilated. Valves, RV Pressures and Diastolic Function The aortic valve is trileaflet and normal in structure, no stenosis and trivial regurgitation. The mitral valve is normal in structure, trace mitral regurgitation. Spectral Doppler shows Grade 2 pattern of LV diastolic filling. The tricuspid valve is normal in structure. Tricuspid regurgitation is trace regurgitation. The tricuspid regurgitant velocity is 1.9 m/s, the estimated right ventricular systolic pressure is 15 mmHg plus right atrial pressure. There is normal estimated pulmonary pressure by tricuspid regurgitation velocity and right atrial pressure. The pulmonic valve is normal. Trace pulmonary regurgitation. Masses, Effusion, Shunts There is no pericardial effusion. The inferior vena cava is normal sized, respiratory size variation greater than 50%. No left to right shunting was detected by limited color flow Doppler interrogation of the interatrial septum. MEASUREMENTS AND CALCULATIONS 2-D Measurements and LV Function: LVID (d) 3.5 cm LV FS% (2D) 32 % LVID (s) 2.4 cm LVOT diameter 2.2 cm IVS (d) 1.2 cm HR 82 bpm LVPW (d) 1.0 cm LA Vol index 30 ml/m2 Ao Sinus 3.8 cm RA Vol index 24 ml/m2 Asc Ao 3.8 cm RA area 16 cm RV Max 4C (d) 4.0 cm Diastology: Mitral Tissue Doppler Pulmonary veins E Peak 0.6 m/s e', Septum 0.04 m/s Pulm s 89.0 cm/s A Peak 0.7 m/s e', Lateral 0.08 m/s Pulm d 39.3 cm/s E/A 0.9 E/e' Average 10.17 Pulm s/d ratio 2.26 DT 182 msec Aortic Valve: Vmax 1.1 m/s DIPIKA (V) 3.02 cm VTI 0.24 m DIPIKA (I) 2.90 cm LVOT V max 0.9 m/s Max PG 5 mmHg LVOT VTI 0.18 m Mean PG 3 mmHg SV 69 ml Dim Index 0.76 SV index 36 ml/m CO 5.6 l/min CI 3.0 l/min/m Mitral Valve: MVA 4.2 cm MV P 1/2 53 msec Tricuspid Valve and estimated PA pressures: TR Vmax 1.9 m/s TAPSE 2.6 cm TR maxG 15 mmHg . This study was interpreted by an [facility] accredited facility. Final Procedure Note Craig Godwin MD - 06/22/2024 ECHOCARDIOGRAM ARMANI VELARDE : 1950 73 years Study Date: 06/22/2024 8:15:48 AM Gender: M BP: 112/71 mmHg Height: 170.00 cm BSA: 1.88 m Weight: 77.00 kg Tech: [facility] Referring MD: YEFRI MCCONNELL Site: [facility] Reading Location: MOBILE OP Patient Location: Outpatient. Procedure: 2D, Color Doppler and Spectral Doppler. Indication for study: Other specified hypotension; Coronary artery diseaseinvolving chitina coronary artery of chitina heart without angina pectoris;Essential hypertension Cardiac Rhythm: Regular.Study quality: Good. Final Impressions: 1. Normal LV size, mildly increased wall thickness, normal globalsystolic function with an estimated EF of 60 - 65%. 2. Grade 2 pattern of LV diastolic filling. 3. The aortic valve is trileaflet and normal, no stenosis and trivialregurgitation. 4. The ascending aorta is dilated with a maximal diameter of 3.8 cm. Chamber Sizes and Function Normal left ventricular size, mildly increased wall thickness, normalglobal systolic function with an estimated EF of 60 - 65%. No restingregional wall motion abnormality visualized. Left atrial size is normal.Left atrial pressure is normal. Right ventricular cavity size is normal,global systolic RV function is normal. RV wall thickness is normal. Theright atrium is normal. Right atrial volume index is 24 ml/m . Rightatrial area is 16 cm . The pulmonary artery is of normal size and origin.The sinus of Valsalva is normal sized. The ascending aorta is dilated. Valves, RV Pressures and Diastolic Function The aortic valve is trileaflet and normal in structure, no stenosis andtrivial regurgitation. The mitral valve is normal in structure, tracemitral regurgitation. Spectral Doppler shows Grade 2 pattern of LVdiastolic filling. The tricuspid valve is normal in structure. Tricuspidregurgitation is trace regurgitation. The tricuspid regurgitant velocityis 1.9 m/s, the estimated right ventricular systolic pressure is 15 mmHgplus right atrial pressure. There is normal estimated pulmonary pressureby tricuspid regurgitation velocity and right atrial pressure. Thepulmonic valve is normal. Trace pulmonary regurgitation. Masses, Effusion, Shunts There is no pericardial effusion. The inferior vena cava is normal sized,respiratory size variation greater than 50%. No left to right shunting wasdetected by limited color flow Doppler interrogation of the interatrialseptum. MEASUREMENTS AND CALCULATIONS 2-D Measurements and LV Function: LVID (d) 3.5 cm LV FS% (2D) 32 % LVID (s) 2.4 cm LVOT diameter 2.2 cm IVS (d) 1.2 cm HR 82 bpm LVPW (d) 1.0 cm LA Vol index 30 ml/m2 Ao Sinus 3.8 cm RA Vol index 24 ml/m2 Asc Ao 3.8 cm RA area 16 cm RV Max 4C (d) 4.0 cm Diastology: Mitral Tissue Doppler Pulmonary veins E Peak 0.6 m/s e', Septum 0.04 m/s Pulm s 89.0 cm/s A Peak 0.7 m/s e', Lateral 0.08 m/s Pulm d 39.3 cm/s E/A 0.9 E/e' Average 10.17 Pulm s/d ratio 2.26 DT 182 msec Aortic Valve: Vmax 1.1 m/s DIPIKA (V) 3.02 cm VTI 0.24 m DIPIKA (I) 2.90 cm LVOT V max 0.9 m/s Max PG 5 mmHg LVOT VTI 0.18 m Mean PG 3 mmHg SV 69 ml Dim Index 0.76 SV index 36 ml/m CO 5.6 l/min CI 3.0 l/min/m Mitral Valve: MVA 4.2 cm MV P 1/2 53 msec Tricuspid Valve and estimated PA pressures: TR Vmax 1.9 m/s TAPSE 2.6 cm TR maxG 15 mmHg . This study was interpreted by an [facility] accredited facility. Final us Yefri Mcconnell MD ECHO ORD Final Resu lt * SCAN-COLONOSCOPY (03/23/2024 12:00 AM MOLECULAR TECHNOLOGIST) us Scanner OTHER Final Result * ANTI HCV (08/04/2016 10:17 AM CDT) HEPATITIS C ANTIBODY Non-Reacti ve Non-Reacti ve 08/04/2016 5:59 PM CDT [facility] Blood BLOOD SPECIMEN / Unknown Venipuncture / Unknown 08/04/2016 10:17 AM CDT 08/04/2016 10:17 AM CDT Narrative [facility] - 08/04/2016 5:59 PM CDT Antibodies to HCV not detected; does not exclude the possibility of exposure to HCV. us Yefri Mcconnell MD SEND OUTS Final Resu lt [facility] 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
--- OUTSIDE RECORDS SUMMARY | 2024-09-09 16:56 | XMS_ITS | Clinical Summary ---
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 Gender Identity Not on file Sexual Orientation Not on file Last Filed Vital Signs Vital Sign Reading Time Taken Comments Blood Pressure 172/99 05/13/2022 1:06 PM ENRICHMENT TEACHER Pulse 91 05/13/2022 1:06 PM ENRICHMENT TEACHER Temperature 36.1 C (97 F) 05/13/2022 12:00 PM ENRICHMENT TEACHER Respiratory Rate 16 05/13/2022 1:06 PM ENRICHMENT TEACHER Oxygen Saturation 97% 05/13/2022 1:06 PM ENRICHMENT TEACHER Inhaled Oxygen Concentration - - Weight 74 kg (163 lb 1.6 oz) 05/13/2022 7:23 AM ENRICHMENT TEACHER Height 170.2 cm (5' 7) 05/13/2022 7:23 AM ENRICHMENT TEACHER Body Mass Index 25.55 05/13/2022 7:23 AM ENRICHMENT TEACHER Plan of Treatment Health Maintenance Due Date Last Done Comments ADVANCE CARE PLANNING 1950 ANNUAL REVIEW OF HM ORDERS [address] CT COLONOGRAPHY 1950 DIABETES SCREENING 1950 FIT 1950 FLEX SIG 1950 LIPID 1950 URIC ACID 1950 sDNA [...] this topic Insurance [employer] MEDICARE Care Teams Social Insurance Analyst Relationship Specialty Start Date End Date Jayro Mcconnell MD PCP - General Family Medicine 04/19/22
--- OUTSIDE RECORDS SUMMARY | 2024-09-09 16:56 | XMS_ITS | Data Portability ---
Author Organization [facility], [facility] Address [address] [place] [address] Care Team Providers Care Fluid Jet Cutter Operator Name Role Phone [facility] Primary Care Provider Assessment Encounter Date Assessment Date Assessment LastModified by Organization Details LastModified Time 05/14/2022 05/14/2022 71 Y/O MALE. HX URINARY RETENTION, S/P LASER ASSISTED TURP FOR A LARGE OBSTRUCTING PROSTATE. HE IS FROM [place] AND WAS SEEN TO ASSESS SOME HEMATURIA. [...] By Organization Details Last Modified Time 04/21/2022 [id number] / TURP [email or web address] Not available 04/21 16:08:42 05/18/2022 [id number] RTC or ER if unable to void [...] ate 2) Sensi tivit y Debora sis Gibbon te 1 Gibbon te 2 ----- ----- ----- ----- ----- [...] s Desk Refer ence or from the [facility] actur er. S= Susce ptibl e;I= [...] for provi miguel revie w. Not Available [facility] [address] [place] [address] [address], [place], [address], 04/07/2022 11:18:33 Result Notes None recorded. Procedures Surgical History Date Name Laterality Status Provider Name and Address Organization Details Recorded Time 05/18/19 23 Fill and Pull/Voiding Trial/TOV completed Tata Benavides [facility] 05/18/2022 11:27:09 05/14/19 23 Bladder Irrigation completed [facility] 05/14/2022 12:42:13 04/21/20 22 Urethral Catheter Change completed Remedios Radford [facility] 04/21/2022 16:08:24 04/05/20 22 Urethral Catheter Change completed Remedios Radford [facility] 04/05/2022 15:40:40 02/27/20 22 Bladder Scan completed Nallely Francis [facility] 02/26/2022 15:45:15 02/27/20 22 Tompkins Catheter Removal completed Zion Villeda [facility] 02/26/2022 09:43:25 02/27/20 22 CystoscopyMale completed Ernie Loya MD [address], [place], [address], [facility] 02/26/2022 09:48:14 Imaging Results [...] Updated DateTime 05/14/2022 170.18 cm 25.1 kg/m2 02059.78 g Ernie Loya MD [address],[facility] [address], [place], [address], [facility] 05/14/2022 12:28:29 Date Recorded Body height Body mass index (BMI) Body weight Provider Name and Address Organization Details Last Updated DateTime 06/08/2022 170.18 cm 25.1 kg/m2 16768.78 g Zion Villeda [facility] 06/08/2022 10:47:55 Social History Question Answer Notes LastModified by Organizat ion Details LastModified Time Tobacco Smoking Status Never Smoker Ernie Loya MD [address], [place], [address], [facility] 02/10/2022 10:19:14 What Was The Date [...] available 02/10 10:18:43 Medical History Condition Response High Blood Pressure Y High Cholesterol Y Heart Disease Y Past Encounters Encounter ID Performer Location Encounter Start Date Encounter Closed Date Diagnosis/Indication Diagnosis SNOMED-CT Code Diagnosis ICD10 Code Diagnosis Note [id number] MD Cecelia Boateng [email or web address] [address]. [place] [id number] 02/10/2022 10:02:12 02/12/2022 14:10:16 Retention of urine 044614594 R33.9 Benign pro static hyperplasia with outflow obstruction [id number] N40.1 [id number] MD Cecelia Boateng [email or web address] [place]. [place] [id number] 02/26/2022 08:54:12 03/03/2022 11:30:04 Benign prostatic hyperplasia with outflow obstruction [id number] N40.1 Retention of urine 96160 4002 R33.9 [id number] MD Cecelia Boateng [email or web address] [address] [place] [id number] 02/26/2022 14:45:58 03/03/2022 11:32:02 Retention of urine 356467343 R33.9 PVR done.Shows 101ml. Pt states he has urinated since he got home this am. Large amount and a couple of small amounts. Had to go to [place] [facility] for Urinary Retention about a month ago, so is a little gun shy.Pt also states he has been having some bleeding since Cysto with Dr Loya. I told him that this is normal. Pt does have abx sample to take. Dr Loya said for him to take it easy for a few days and drink lots of water. Juliet, RN/BSN [id number] MD Cecelia Boateng. [place] [id number] 03/05/2022 10:31:23 03/10/2022 13:12:50 Benign prostatic hyperplasia with outflow obstruction [id number] N40.1 Acute rete ntion of urine 697531653 R33.8 [id number] MD Cecelia Boateng. [place] [id number] 0 04/05/2022 14:52:43 04/07/2022 11:11:56 Urinary tract infectious disease 39781426 N39.0 Patient states he had UTI in February- wanted urine rechecked. Dysuria and foul smelling urine at times. Retention of urine 27843 4002 R33.9 tompkins until 05/13 TURP with RU [id number] MD Cecelia Boateng [facility] Sarahi [address]. [place] [id number] 04/09/2022 12:15:57 04/21/2022 09:06:14 Difficulty managing urinary catheter [id number] Z74.1 Pts catheter adjusted. Inserted additional 5 cc into balloon, making it 15cc. Will contact if contniues to have issues [id number] MD Cecelia Boateng. [place] [id number] 04/21/2022 15:34:47 04/23/2022 16:59:00 Benign prostatic hyperplasia with outflow obstruction [id number] N40.1 Patient has been bypassing urine frequently - he doesn't think they are bladder spasms and would like to try changing tompkins before he resorts to medication . [id number] MD Cecelia Boateng. [place] [id number] 05/14/2022 12:10:22 05/19/2022 10:20:42 Benign prostatic hyperplasia with outflow obstruction [id number] N40.1 Patient has been bypassing urine frequently - he doesn't think they are bladder spasms and would like to try changing tompkins before he resorts to medication . [id number] Ernie Loya MD _[place] [address] [facility] [id number] 05/18/2022 10:41:07 05/21/2022 12:55:48 Retention of urine 648186920 R33.9 See Procedure Documentat ion for details. S/P TURP per RU on 05/13/2022. IN: 300ml/OUT: 280ml +inc. Pt is already on an abx per his PMD for UTI, and has meds left, so no new abx given. FLORENCE Chung/BSN [id number] [facility] [address] [facility] [place] [id number] 06/08/2022 10:47:10 06/11/2022 11:26:45 Benign prostatic hyperplasia with outflow obstruction [id number] N40.1 Patient has been bypassing urine frequently - he doesn't think they are bladder spasms and would like to try changing tompkins before he resorts to medication . Retention of urine 53772 4002 R33.9 See Procedure Documentat ion for details. S/P TURP per RU on 05/13/2022. IN: 300ml/OUT: 280ml +inc. Pt is already on an abx per his PMD for UTI, and has meds left, so no new abx given. Juliet RN/BSN Health Concerns Section Related Observation LastModified by Organization Detai ls LastModified Time None Recorded Concern Status LastModified by Organization Details LastModified Time None Recorded Advance Directives Directive None Recorded Payers Encounter Date Sequence Insurance Name Policy Number Policy Vance Covered Member ID Vance Member ID Guarantor Name 04/09/2022 1 [employer] - DOS ON OR AFTER 19 (MEDICARE REPLACEMENT/ ADVANTAGE - HMO) [id number] Armani Velarde [id number] Armani Velarde 04/21/2022 1 [employer] - DOS ON OR AFTER 19 (MEDICARE REPLACEMENT/ ADVANTAGE - HMO) [id number] Armani Velarde [id number] Armani Velarde 05/14/2022 1 [employer] - DOS ON OR AFTER 19 (MEDICARE REPLACEMENT/ ADVANTAGE - HMO) [id number] Armani Velarde [id number] Armani Velarde 05/18/2022 1 [employer] - DOS ON OR AFTER 19 (MEDICARE REPLACEMENT/ ADVANTAGE - HMO) [id number] Armani Sullivannes [id number] Armani Eugene Syd 06/08/2022 1 [employer] - DOS ON OR AFTER 19 (MEDICARE REPLACEMENT/ ADVANTAGE - HMO) [id number] Armani Velarde [id number] Armani Velarde Notes Date Note Type Note Provider Name and Address Organization Details Recorded Time 04/09/2022 text/html Pt here to have catheter looked at, having some urine bypassing Ernie Loya MD [address] [place] [address],[address] [place] [address], [phone], [facility] 04/11/2022 11:03:17 05/14/2022 text/html [...] BETTER TODAY. IRRIGATED CLEAR Ernie Loya MD [address] [place] [address],[address], [place], [address], [facility] 05/14/2022 15:23:07 06/08/2022 text/html [...] and coordinate their care. Ernie Loya MD [address] [place] [address],[address], [place], [address], [facility] 06/08/2022 11:10:40
[2024-09-09 16:58] VITALS: BP 135/94; PULSE 87; RESP 18; TEMP 36.6; O2SAT 97; BMI 26.3
--- NOTE | 2024-09-09 17:25 | ED.GENADULT ---
HPI - General Adult General Chief complaint: Hypertension Stated complaint: Very High BP #'s Time Seen by Provider: 09/09/24 16:57 Source: patient Mode of arrival: ambulatory Limitations: no limitations History of Present Illness HPI narrative: 73-year-old male comes in today concerned about elevated blood pressures. He states that yesterday and today blood pressures have been quite elevated. He has checked his blood pressure today 12 times. Patient is leaving for [place] tomorrow for 2 weeks and he is quite stressed out about it. Two days ago he started working out his schedule and transportation. By Tuesday he was really worked up about this is a blood pressure started rising. It got as high as 199/101. Subsequent blood pressures were in the 150s to 170s systolic. Patient states that prior to Fridays blood pressures are generally in the 130s to 140 systolic. Patient walks the and gets cardiovascular exercise every other day. He is not more short of breath than usual, denies chest pain. Patient states that he did have a stent many years ago. He denies tobacco use. Patient is on lisinopril hydrochlorothiazide and metoprolol daily. He denies headache, urinary symptoms or abdominal discomfort. Related Data Home Medications ?Medication ?Instructions ?Recorded ?Confirmed allopurinol 300 mg tablet 300 mg PO QHS 02/07/22 06/13/24 metoprolol succinate 50 mg 50 mg PO QHS 02/07/22 06/13/24 tablet,extended release 24 hr simvastatin 80 mg tablet 80 mg PO QHS 02/07/22 06/13/24 aspirin 325 mg tablet 325 mg PO QHS 06/13/24 06/13/24 lisinopril 20 1 tab PO QHS 06/13/24 06/13/24 mg-hydrochlorothiazide 12.5 mg tablet Allergies Allergy/AdvReac Type Severity Reaction Status Date / Time No Known Drug Allergies Allergy Verified 06/13/24 09:32 Review of Systems Status of ROS: Reports: 10 or more systems reviewed and unremarkable except as noted in History and below [facility] Medical History Urinary retention ?R33.9 - Retention of urine, unspecified (ICD-10) Gout ?M10.9 - Gout, unspecified (ICD-10) Hypertension ?I10 - Essential (primary) hypertension (ICD-10) Surgical History No significant past surgical history Social History Smoking Status: Never smoker Do you use any of these nicotine containing products: None Second hand tobacco smoke exposure: No How often do you have a drink containing alcohol: never How often do you have six or more drinks on one occasion: Never AUDIT-C Alcohol total score: 0 Non-prescribed substance use: denies use service: No Exam Narrative: Exam Narrative: Well-nourished well-developed patient , anxious. Alert and oriented. Answers questions appropriately. Mood and affect are appropriate. Thoughts are goal oriented and rational. No tangential or magical thinking noted. Patient speaks in full sentences without needing to catch his breath. HEENT: Normocephalic atraumatic. Pupils are equally round reactive to light. Extraocular muscles are intact. Conjunctivae are moist without any icterus noted. Moist mucous membranes. Cardiovascular: Heart is regular rate and rhythm S1 and S2 are present without any murmurs. Lungs: Clear to auscultation bilaterally no wheezes rhonchi or rales are appreciated. Patient takes deep breaths without any discomfort. Extremities: Bilateral lower extremities are without edema. Normal DP and PT pulses. Skin: Well perfused. Const: Vital Signs, click to edit/add: Vital Signs - 24 hr 09/09/24 16:58 Temperature 97.8 F Pulse Rate [Pulse Oximeter] 87 Respiratory Rate 18 Blood Pressure [Ri ght Upper Arm] 135/94 H Pulse Oximetry 97 Oxygen Delivery Me thod Room Air Course Course ED Course: Patient is very concerned about traveling. He has scenarios in his mind where he is away from a hospital or a clinic and he has a heart attack. He does not feel safe getting medical care outside of the [place] and this is contributing to his anxiety. He is requesting a troponin an EKG today to make sure that his heart is healthy before he leaves. EKG, read by me, shows normal sinus rhythm, pulse is 80. Normal [place] and QT intervals. Troponin is normal. Vital Signs Vital signs: Initial Vital Signs Temperature 97.8 F 09/09/24 16:58 Temperature Source Temporal Artery Scan 09/09/24 16:58 Pulse Rate 87 09/09/24 16:58 Pulse Rhythm Regular 09/09/24 16:58 Respiratory Rate 18 09/09/24 16:58 Blood Pressure 135/94 H 09/09/24 16:58 Blood Pressure Mean 107 H 09/09/24 16:58 Blood Pressure Position Sitting 09/09/24 16:58 Pulse Oximetry 97 09/09/24 16:58 Oxygen Delivery Method Room Air 09/09/24 16:58 Vital Signs Temperature 97.8 F 09/09/24 16:58 Pulse Rate 87 09/09/24 16:58 Respiratory Rate 18 09/09/24 16:58 Blood Pressure 135/94 H 09/09/24 16:58 Pulse Oximetry 97 09/09/24 16:58 Oxygen Delivery Method Room Air 09/09/24 16:58 Temperature 97.8 F 09/09/24 16:58 Pulse Rate 87 09/09/24 16:58 Respiratory Rate 18 09/09/24 16:58 Blood Pressure 135/94 H 09/09/24 16:58 Pulse Oximetry 97 09/09/24 16:58 Oxygen Delivery Method Room Air 09/09/24 16:58 Medical Decision Making MDM Narrative Medical decision making narrative: 73-year-old male with elevated blood pressures. Normal in the ED today at 135/94. Patient is reassured. We discussed going on vacation following up with his primary care provider when he returns. Lab Data Labs: Lab Results 09/09/24 Range/Units 17:21 POC Troponin I 0.01 (0.01-0.04) ng/ml Discharge Plan Discharge Clinical Impression: Elevated blood pressure reading Patient Disposition: Home, Self-Care Condition: Stable Prescriptions: No Action metoprolol succinate 50 mg tablet extended release 24 hr 50 mg PO QHS simvastatin 80 mg tablet 80 mg PO QHS allopurinol 300 mg tablet 300 mg PO QHS lisinopril-hydrochlorothiazide 20-12.5 mg tablet 1 tab PO QHS aspirin 325 mg tablet 325 mg PO QHS Follow Up/Referrals: Jayro Mcconnell MD [Primary Care Provider] - Stand Alone Forms: MyHealth Info Instructions
--- OUTSIDE RECORDS SUMMARY | 2024-09-09 17:35 | XMS_ITS | Clinical Summary ---
Author Organization [employer] [facility] [employer] [facility] Address [address] [place] [address] Care Team Providers Care Department Specialist Name Role Phone eYfri Mcconnell MD Primary Care Provider [phone]- [phone] Ab Rm MD Unavailable + [phone] Allergies Active Allergy Reactions Criticality Noted Date Comments Ibuprofen Other - Describe In Comment Field 07/20/2024 Hands swelled up Medications aspirin enteric coated (ECOTRIN) 325 mg tabletIndications :Coronary artery disease involving [place] coronary artery of [place] heart without angina pectoris Take 1 tablet by mouth once daily with a meal. 90 tablet 3 8 Active nitroglycerin (Nitrostat) 0.4 mg sublingual tabletIndications :Coronary artery disease involving [place] coronary artery of [place] heart without angina pectoris Place 1 Tablet [...] tabletIndications :Pure hypercholesterole doris,Coronary artery disease involving [place] coronary artery of [place] heart without angina pectoris Take 1 Tablet [...] once daily. 90 Tablet 06/18/2024 9:35 AM DRAWING TENDER 5 09/04/19 25 Discontinu ed(Reorder (E-cancel not [...] monitoring with echocardiogram or CT. 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 No history of SD. Idiopathic gout 05/19/2015 DDD (degenerative disc disease), [...] on 10/19/2007 -same pain while walking around [place] 10/20/2007 -same pain 2 episodes 10/24/2007 -chest burning/tightness -some dyspnea -some diaphoresis -radiating to left arm and up into neck/jaw Gouty Arthropathy 03/23/2007 08/13/2013 Encounters Date Type Department Care Team Description 09/03/2024 Refill [facility] [place] [address] Yefri Mcconnell MD Refill Request (metoprolol) 08/31/2024 9:40 AM CDT Office Visit [facility] [address] Yefri Mcconnell MD Follow Up (Go over lab results/Blood pressure); Immunization/Injection 08/31/2024 Travel 08/28/2024 11:10 AM CDT Office Visit [facility] [address] [place] [address] Mis Omer PA Head Injury 08/28/2024 10:00 AM CDT Orders Only [facility] [address] [facility] [address] Lab, [place] [facility] 08/28/2024 Travel 08/26/2024 Travel 08/23/2024 Travel 08/21/2024 Telephone [facility] [address] Yefri Mcconnell MD Imaging (Echo results from 06-22-24) 08/03/2024 Telephone [facility] [place] [address] Yefri Mcconnell MD Medication Management (prednisone) 07/27/2024 8:50 AM CDT Office Visit [facility] [address] [place] [address] Yefri Mcconnell MD Musculoskeletal Problem (Concerns with some type of arthritis - follow up); Results (CPR and ESR elevated) 07/27/2024 Travel 07/26/2024 Travel 07/24/2024 11:30 AM CDT Orders Only [facility] [address] [place] [address] Lab, [facility] Lab 07/23/2024 Travel 07/22/2024 Telephone [facility] [address] [place] [address] Yefri Mcconnell MD FYI 07/21/2024 Orders Only [facility] [address] [facility] [place] [address] Yefri Mcconnell MD <No scans attached> 07/20/2024 3:10 PM CDT Office Visit [facility] [address] [place] [address] Yefri Mcconnell MD Blood Pressure (Blood pressure has been running higher lately -brought in home readings) 07/20/2024 Travel 07/13/2024 9:55 AM DRAWING TENDER Office Visit [facility] [address] [place] [address] Jennifer Lake DO Hand Pain/problem (Swelling and pain in both hands, started in June ); Arm Pain/problem (Pain in both arms, sharp pain ) 07/13/2024 Travel 06/28/2024 Orders Only [facility] [address] [facility] [place] [address] Yefri Mcconnell MD <No scans attached> 06/22/2024 12:40 PM DRAWING TENDER Office Visit [facility] [address] [facility] [place] [address] Yefri Mcconnell MD Medication Management (Follow up from previously low blood pressure) 06/22/2024 8:00 AM DRAWING TENDER Ancillary Procedure [facility] [address] [facility] [address] 06/22/2024 Travel 06/19/2024 Travel 06/15/2024 12:40 PM DRAWING TENDER Office Visit [facility] [address] [place] [address] Yefri Mcconnell MD ER Follow up ([facility] for low blood pressure) 06/15/2024 Travel 06/14/2024 1:00 PM DRAWING TENDER Nurse/Clinic Staff Only [facility] [address] [place] [address] Blood Pressure 06/14/2024 Travel 06/13/2024 Nurse Triage [facility] [address] [place] [address] Yefri Mcconnell MD Low Blood Pressure 06/12/2024 Nurse Triage [facility] [address] [place] [address] Yefri Mcconnell MD Heart Problem (?) from [...] of stroke at 73; smoker Hypertension Other SD Relation Name Status Comments Brother 1 Alive [...] on file Legal Sex Male 5:42 AM DRAWING TENDER Gender Identity Not on file Sexual Orientation [...] Description 10/29/2024 10:15 AM CDT Orders Only [facility] [address] [place] [address] Willie Kwok 11/02/2024 9:15 AM CDT Office Visit [facility] [address] [place] [address] Yefri Mcconnell MD [address] [place] [address] Health Maintenance Due Date Last Done Comments [...] history exists Medical Devices Implanted Type Area Wood Borer Device Identifier Shelf Expiration Date Model / Serial / Lot Shell Hip Rt Od58mm Mormon[employer] Adm X3 - [id number] Implanted:Qty: 1 on 08/20/2013 at [facility] Right: Hip [employer] [id number]# / / [id number] Stem Hip Sz4 127deg Accolade Ii - [id number] Implanted:Qty: 1 on 08/20/2013 at [facility] Right: Hip [employer] [id number]# / / [id number] Liner Hip Id28 Od58mm Adm X3 Pe - [id number] Implanted:Qty: 1 on 08/20/2013 at [facility] Right: Hip [employer] [id number]# / / [id number] Head Hip Od28mm +4 Biolox Delta C-Taper Alumina Cer - [id number] Implanted:Qty: 1 on 08/20/2013 at [facility] Right: Hip [employer] 6570-0-228 # / / [id number] Shell Hip Lt Od58mm Mormonism Adm X3 - [id number] Implanted:Qty: 1 on 06/05/2015 by Ramiro Herron MD at [facility] Left: Hip [employer] 1235-2-582 # / / [id number] Stem Hip Sz4 127deg Accolade Ii - [id number] Implanted:Qty: 1 on 06/05/2015 by Ramiro Herron MD at [facility] Left: Hip [employer] [id number]# / / [id number] Liner Hip Id28 Od58mm Adm X3 Pe - [id number] Implanted:Qty: 1 on 06/05/2015 by Ramiro Herron MD at [facility] Left: Hip [employer] [id number]# / / [id number] Head Hip Od28mm +4 Biolox Delta C-Taper Alumina Cer - [id number] Implanted:Qty: 1 on 06/05/2015 by Ramiro Herron MD at [facility] Left: Hip [employer] 6570-0-228 # / / [id number] Procedures Procedure Name Priority Date/Time Associated Diagnosis Comments SEDIMENTATION RATE Routine 08/28/2024 10 :22 AM CDT PMR (polymyalgia rheumatica) (HC) C-REACTIVE PROTEIN Routine 08/28/2024 10 :22 AM CDT PMR (polymyalgia rheumatica) (HC) BASIC METABOLIC PANEL Routine 08/28/2024 10:22 AM CDT Essential hypertension LIPID PANEL W REFLEX MEASURED LDL Routine 08/28/2024 10:22 AM CDT Pure hypercholesterolemia Coronary artery disease involving [place] coronary artery of [place] heart without angina pectoris PSA TOTAL Routine [...] SEDIMENTATION RATE Routine 07/13/2024 10 :41 AM DRAWING TENDER Myalgia C-REACTIVE PROTEIN Routine 07/13/2024 10 :41 AM DRAWING TENDER Myalgia URIC ACID Routine 07/13/2024 10:41 AM DRAWING TENDER Myalgia CBC WITH AUTO DIFFERENTIAL Routine 07/13/2024 10:41 AM DRAWING TENDER Myalgia COMP METABOLIC PANEL Routine 07/13/2024 10:41 AM DRAWING TENDER Myalgia CK TOTAL Routine 07/13/2024 10:41 AM DRAWING TENDER Myalgia ANTINUCLEAR ANTIBODY BY IFA Routine 07/13/2024 10:41 AM DRAWING TENDER Myalgia TSH WITH REFLEX Routine 07/13/2024 10:41 AM DRAWING TENDER Myalgia PARVOVIRUS B19 PCR Routine 07/13/2024 10 :41 AM DRAWING TENDER Myalgia UA W/ SEDIMENT EXAM REFLEXED PER CRITERIA Routine 06/22/2024 1:53 PM DRAWING TENDER Myalgia CK TOTAL Routine 06/22/2024 1:45 PM DRAWING TENDER Myalgia CBC WITH AUTO DIFFERENTIAL Routine 06/22/2024 1:45 PM DRAWING TENDER Myalgia ALT (SGPT) Routine 06/22/2024 1:45 PM DRAWING TENDER Myalgia AST (SGOT) Routine 06/22/2024 1:45 PM DRAWING TENDER Myalgia BASIC METABOLIC PANEL Routine 06/22/2024 1:44 PM DRAWING TENDER Myalgia ECHO TTE COMPLETE WO CONTRAST BRIA 06/22/2024 9:08 AM DRAWING TENDER Other specified hypotension Coronary artery disease involving [place] coronary artery of [place] heart without angina pectoris Essential hypertension COLONOSCOPY SCREENING Routine 03/23/2024 7:22 AM DRAWING TENDER Family history of colon cancer ANTI HCV [...] Yefri Mcconnell MD HEMATOLOGY Final Resu lt [facility] [address] [place] [address], [facility] [address] [place] [address] * (ABNORMAL) HEMOGLOBIN A1C (08/28/2024 10:22 AM [...] Yefri Mcconnell MD CHEMISTRY Final Resu lt [facility] [address] [place] [address], [place] [phone] [facility] [address] [place] [address] * (ABNORMAL) LIPID PANEL W REFLEX MEASURED LDL (08/28/2024 10:22 AM CDT) CHOLESTEROL, TOTAL 231(H) <200 mg/dL [facility] HDL CHOLESTEROL 54 > OR = 40 mg/dL [facility] TRIGLYCERIDES 201(H) <150 mg/dL [facility] Comment: If a non-fasting specimen was collected, consider repeat triglyceride testing on a fasting specimen if clinically indicated. Elli et al. J. of Clin. Lipidol. 2015;9:129-169. LDL-CHOLESTEROL 142(H) mg/dL (calc) [facility] [place] Comment: Reference range: <100 Desirable range <100 mg/dL for primary prevention; <70 mg/dL for patients with CHD or diabetic patients with > or = 2 CHD risk factors. LDL-C is now calculated using the Armani-Andressa calculation, which is a validated novel method providing better accuracy than the Friedewald equation in the estimation of LDL-C. Armani SS et al. MELINDA. 2013;310(19): 6780-9128 (http://education.[employer]/faq/DBL040) CHOL/HDLC RATIO 4.3 <5.0 (calc) [facility] NON HDL CHOLESTEROL 177(H) <130 mg/dL (calc) [facility] Comment: For patients with diabetes plus 1 major ASCVD risk factor, treating to a non-HDL-C goal of <100 mg/dL (LDL-C of <70 mg/dL) is considered a therapeutic option. Blood BLOOD SPECIMEN / Unknown 08/28/2024 10:22 AM CDT 08/28/2024 10:23 AM CDT Yefri Mcconnell MD CHEMISTRY Final Resu lt Performing Organization Address [facility]/ZIP Co de Phone Number [facility] [address] [place] [address], [place] [phone] [facility] [address] [place] [address] * C-REACTIVE PROTEIN (08/28/2024 10:22 AM CDT) Only the most recent of4 resultswithin the time period is included. C-REACTIVE PROTEIN <3.0 <8.0 mg/L [facility] Blood BLOOD SPECIMEN / Unknown 08/28/2024 10:22 AM CDT 08/28/2024 10:23 AM CDT Yefri Mcconnell MD CHEMISTRY Final Resu lt Performing Organization Address [facility] Co de Phone Number [facility] [address] [place] [address], [place] [phone] [facility] [address] [place] [address] * (ABNORMAL) PSA TOTAL (DIAG OR SCREEN) (08/28/2024 10:22 AM CDT) PSA, TOTAL 4.66(H) < OR = 4.00 ng/mL [facility] Comment: The total PSA value from this assay system is standardized against the WHO standard. The test result will be approximately 20% lower when compared to the equimolar-standardized total PSA (Valer[place]). Comparison of serial PSA results should be [...] Mcconnell MD CHEMISTRY Final Resu lt [facility] [employer] [facility] [address] [facility] [place] [address], [place] [phone] [facility] [address] [place] [address] * BASIC METABOLIC PANEL (08/28/2024 10:22 AM CDT) Only the most recent of3 resultswithin the time period is included. [facility] GLUCOSE 90 65 - 99 mg/dL [facility] Comment: Fasting reference interval UREA [...] Yefri Mcconnell MD CHEMISTRY Final Resu lt [facility] [address] [facility] [place] [address], [place] [phone] [facility] [address] [place] [address] * (ABNORMAL) CBC AND DIFFERENTIAL (07/20/2024 4:25 [...] HEMATOLOGY Final Resu lt Performing Organization Address [facility]/ZIP Co de Phone Number [facility] [address] [place] [address], [place] [phone] [facility] [address] [place] [address] * ANTINUCLEAR ANTIBODY BY IFA (07/13/2024 10:41 AM DRAWING TENDER) JONEL SCREEN, IFA NEGATIVE NEGATIVE [facility] [email or web address]- [facility] [place] Comment: JONEL IFA is a [...] AC-0: Negative International Consensus on JONEL Patterns (https://doi.org/10.1515/bquu-0625-2953) For additional information, please refer to http://education.[employer]/faq/BOA038 (This link is being provided for informational/ educational purposes only.) Blood BLOOD SPECIMEN / Unknown 07/13/2024 10:41 AM DRAWING TENDER 07/13/2024 10:42 AM DRAWING TENDER Jennifer Lake DO CHEMISTRY Final Resul t Performing Organization Address City/[facility]/ZIP Co de Phone Number [facility] [address] [place] [address], [place] [phone] [facility] [place] [address] [place] [address] * PARVOVIRUS B19 PCR (07/13/2024 10:41 AM DRAWING TENDER) SOURCE PARVOPCR Blood MedF usion-Me dFusion PARVOVIRUS [...] analytical performance characteristics have been determined by [facility]. It has not been cleared or approved by the U.S. Food and Drug Administration. This assay has been validated pursuant to the CLIA regulations and is used for clinical purposes. [facility] med fusion [address] [place] [address],[address] [place] [address] Bryant Amin MD, PhD Blood BLOOD SPECIMEN / Unknown 07/13/2024 10:41 AM DRAWING TENDER 07/13/2024 10:42 AM DRAWING TENDER Jennifer Lake DO SEND OUTS Final Resul t [address] [address], [facility] [address] [place] [address], [address] [place] [address] * TSH WITH REFLEX (07/13/2024 10:41 AM DRAWING TENDER) TSH W/REFLEX TO FT4 2.47 0.40 - 4.50 mIU/L [facility] [place] Blood BLOOD SPECIMEN / Unknown 07/13/2024 10:41 AM DRAWING TENDER 07/13/2024 10:42 AM DRAWING TENDER Jennifer Lake DO CHEMISTRY Final Resul t [facility] [address] [place] [address], [place] [phone] [facility] [address] [place] [address] * URIC ACID (07/13/2024 10:41 AM DRAWING TENDER) [facility] URIC ACID 4.2 4.0 - 8.0 mg/dL [facility]oo Spencere Comment: Therapeutic target for gout patients: <6.0 mg/dL Blood BLOOD SPECIMEN / Unknown 07/13/2024 10:41 AM DRAWING TENDER 07/13/2024 10:42 AM DRAWING TENDER Jennifer Lake DO CHEMISTRY Final Resul t Performing Organization Address [facility] Co de Phone Number [facility] [address] [place] [address], [facility] [address] [place] [address] * CK TOTAL (07/13/2024 10:41 AM DRAWING TENDER) Only the most recent of2 resultswithin the time period is included. [facility] CREATINE KINASE, TOTAL 44 19 - 278 U/L [facility] Blood BLOOD SPECIMEN / Unknown 07/13/2024 10:41 AM DRAWING TENDER 07/13/2024 10:42 AM DRAWING TENDER Jennifer Lake DO CHEMISTRY Final Resul t Performing Organization Address [facility]/ZIP Co de Phone Number [facility] [address] [facility] [place] [address], [place] [phone] [facility] [address] [place] [address] * (ABNORMAL) COMP METABOLIC PANEL (07/13/2024 10:41 AM DRAWING TENDER) [facility] GLUCOSE 92 65 - 99 mg/dL [facility] [place] Comment: Fasting reference interval UREA [...] BLOOD SPECIMEN / Unknown 07/13/2024 10:41 AM DRAWING TENDER 07/13/2024 10:42 AM DRAWING TENDER us Jennifer Lake DO CHEMISTRY Final Resul t [facility] [address] [place] [address], [facility] [address] [place] [address] * UA W/ SEDIMENT EXAM REFLEXED PER CRITERIA (06/22/2024 1:53 PM DRAWING TENDER) COLOR Yellow Yellow Color 06/22/2024 10:58 PM DRAWING TENDER [facility] CLARITY Clear Clear Clarity 06/22/2024 10:58 PM DRAWING TENDER [facility] SPECIFIC GRAVITY,URINE 1.015 1.010, 1.015, 1.020, 1.025 06/22/2024 10:58 PM DRAWING TENDER [facility] PH,URINE 6.0 6.0, 7.0, 8.0, 5.5, 6.5, 7.5, 8.5 06/22/2024 10:58 PM [facility] UROBILINOGEN, QUALITATIVE Normal Normal EU/dl 06/22/2024 10:58 PM [facility] PROTEIN, URINE Negative Negative mg/dL 06/22/2024 10:58 PM [facility] GLUCOSE, URINE Negative Negative mg/dL 06/22/2024 10:58 PM DRAWING TENDER [facility] KETONES,URINE Negative Negative mg/dL 06/22/2024 10:58 PM [facility] BILIRUBIN,URI NE Negative Negative 06/22/2024 10:58 PM DRAWING TENDER [facility] OCCULT BLOOD,URINE Negative Negative 06/22/2024 10:58 PM DRAWING TENDER [facility] NITRITE Negative Negative 06/22/2024 10:58 PM DRAWING TENDER [facility] LEUKOCYTE ESTERASE Negative Negative 06/22/2024 10:58 PM [facility] Urine URINE SPECIMEN / Unknown Non-Blood / Unknown 06/22/2024 1:53 PM DRAWING TENDER 06/22/2024 1:53 PM DRAWING TENDER us Yefri Mcconnell MD URINE Final Resu lt [facility] [address] [place] [address], [place] * (ABNORMAL) ALT (SGPT) (06/22/2024 1:45 PM DRAWING TENDER) Pathologist [facility] ALT 8(L) 9 - 46 U/L [facility] Blood BLOOD SPECIMEN / Unknown 06/22/2024 1:45 PM DRAWING TENDER 06/22/2024 1:45 PM DRAWING TENDER Yefri Mcconnell MD CHEMISTRY Final Resu lt [facility] [address] [place] [address], [place] [phone] [facility] [address] [place] [address] * AST (SGOT) (06/22/2024 1:45 PM DRAWING TENDER) Pathologist [facility] AST 14 10 - 35 U/L [facility] Blood BLOOD SPECIMEN / Unknown 06/22/2024 1:45 PM DRAWING TENDER 06/22/2024 1:45 PM DRAWING TENDER Yefri Mcconnell MD CHEMISTRY Final Resu lt Performing Organization Address City/[facility]/ZIP Co de Phone Number [facility] [employer] [facility] [address] [place] [address], [place] [phone] [facility] [address] [place] [address] * ECHO TTE COMPLETE WO CONTRAST (06/22/2024 9:08 AM DRAWING TENDER) Pathologist [facility] AORTIC VALVE MEAN PG 3 mmHg EJECTION FRACTION 62 % PEAK TR VELOCITY 1.9 m/s LVEDD 3.5 cm EJECTION FRACTION 60 - 65% Anatomical Region Laterality Modality Ultrasound 06/22/2024 8:15 AM DRAWING TENDER Narrative 06/22/2024 11:59 AM DRAWING TENDER ECHOCARDIOGRAM ARMANI VELARDE : 1950 73 years Study Date: 06/22/2024 8:15:48 AM Gender: M BP: 112/71 mmHg Height: 170.00 cm BSA: 1.88 m Weight: 77.00 kg Tech: [facility] Referring MD: YEFRI MCCONNELL Site: [facility] Reading Location: MOBILE OP Patient Location: Outpatient. Procedure: 2D, Color Doppler and Spectral Doppler. Indication for study: Other specified hypotension; Coronary artery disease involving [place] coronary artery of [place] heart without angina pectoris; Essential hypertension Cardiac [...] . This study was interpreted by an [facility] accredited facility. Final Procedure Note Craig Godwin MD - 06/22/2024 ECHOCARDIOGRAM ARMANI VELARDE : 1950 73 years Study Date: 06/22/2024 8:15:48 AM Gender: M BP: 112/71 mmHg Height: 170.00 cm BSA: 1.88 m Weight: 77.00 kg Tech: [facility] Referring MD: YEFRI MCCONNELL Site: [facility] Reading Location: MOBILE OP Patient Location: Outpatient. Procedure: 2D, Color Doppler and Spectral Doppler. Indication for study: Other specified hypotension; Coronary artery diseaseinvolving [place] coronary artery of [place] heart without angina pectoris;Essential hypertension Cardiac Rhythm: [...] Resu lt * SCAN-COLONOSCOPY (03/23/2024 12:00 AM DRAWING TENDER) us Scanner OTHER Final Result * ANTI HCV (08/04/2016 10:17 AM CDT) HEPATITIS C ANTIBODY Non-Reacti ve Non-Reacti ve 08/04/2016 5:59 PM CDT [facility] Blood BLOOD SPECIMEN / Unknown Venipuncture / Unknown 08/04/2016 10:17 AM CDT 08/04/2016 10:17 AM CDT Narrative [facility] - 08/04/2016 5:59 PM CDT Antibodies to HCV not detected; does not exclude the possibility of exposure to HCV. us Yefri Mcconnell MD SEND OUTS Final Resu lt [facility] 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
--- OUTSIDE RECORDS SUMMARY | 2024-09-09 17:35 | XMS_ITS | Clinical Summary ---
Author Organization [place] Address [address] [place] [address] Care Team Providers Care Spinning Lathe Operator Hydraulic Name Role Phone Jayro Mcconnell MD Primary Care Provider +1- [phone] Allergies No known active allergies Medications allopurinol [...] on file Legal Sex Male 12:57 PM BLOWER ROOM ATTENDANT Gender Identity Not on file Sexual Orientation Not on file Last Filed Vital Signs Vital Sign Reading Time Taken Comments Blood Pressure 172/99 05/13/2022 1:06 PM BLOWER ROOM ATTENDANT Pulse 91 05/13/2022 1:06 PM BLOWER ROOM ATTENDANT Temperature 36.1 C (97 F) 05/13/2022 12:00 PM BLOWER ROOM ATTENDANT Respiratory Rate 16 05/13/2022 1:06 PM BLOWER ROOM ATTENDANT Oxygen Saturation 97% 05/13/2022 1:06 PM BLOWER ROOM ATTENDANT Inhaled Oxygen Concentration - - Weight 74 kg (163 lb 1.6 oz) 05/13/2022 7:23 AM BLOWER ROOM ATTENDANT Height 170.2 cm (5' 7) 05/13/2022 7:23 AM BLOWER ROOM ATTENDANT Body Mass Index 25.55 05/13/2022 7:23 AM BLOWER ROOM ATTENDANT Plan of Treatment Health Maintenance Due Date [...] this topic Insurance [employer] MEDICARE Care Teams Spinning Lathe Operator Hydraulic Relationship Specialty Start Date End Date Jayro Mcconnell MD PCP - General Family Medicine 04/19/22
[2024-09-09 17:44] LABS: Troponin, Point-of-Care* 0.01 ng/ml (0.01-0.04)
== END 2024-09-09 17:57 | disposition home or self-care (01) ==
PROVIDERS: Emergency Provider Family Medicine; PCP Family Medicine
DX: I10 Essential (primary) hypertension (principal); Z71.1 Person with feared health complaint in whom no diagnosis is made; Z79.899 Other long term (current) drug therapy
CPT/HCPCS: 84484; 93005; 99283; 99284

== ENCOUNTER 2025-04-21 18:50 | Emergency (ER) | payer MEDICARE, SELFPAY ==
--- OUTSIDE RECORDS SUMMARY | 2025-04-21 18:52 | XMS_ITS | Clinical Summary ---
Author Organization [facility] Address [address] [place] [address] Care Team Providers Care Real Estate Associate Attorney Name Role Phone Jayro Mcconnell MD Primary Care Provider [phone] Allergies No known active allergies Medications MedicationSigDispense QuantityRefillsLast FilledStart DateEnd DateStatus allopurinol (ZYLOPRIM) 300 MG tablet Take 300 mg by mouth dailyActive finasteride (PROSCAR) 5 MG tablet Take 5 mg by mouth dailyActive lisinopril (ZESTRIL) 20 MG tablet Take 20 mg by mouth dailyActive metoprolol succinate ER (TOPROL XL) 50 MG 24 hr tablet Take 50 mg by mouth dailyActive nitroGLYcerin (NITROSTAT) 0.[address] 0.4 mg under the tongue every 5 minutes as needed for chest pain For chest pain place 1 tablet under the tongue every 5 minutes for 3 doses. If symptoms persist 5 minutes after 1st dose call 911.Active simvastatin (ZOCOR) 80 MG tablet Take by mouth At BedtimeActive tamsulosin (FLOMAX) 0.4 MG capsule Take 0.4 mg by mouth dailyActive traMADol (ULTRAM) 50 MG tablet Take 50 mg by mouth every 6 hours as needed for severe pain (7-10)Active Social History Tobacco UseTypesPacks/DayYears UsedDateSmoking Tobacco: NeverSmokeless Tobacco: Never Tobacco Cessation:Counseling Given: Not Answered Alcohol UseStandard Drinks/WeekCommentsYes0 (1 standard drink = 0.6 oz pure alcohol)rareAdolescent EducationAnswerDate RecordedGetting School Help NeededNot on file01/28/2023Sex and Gender InformationValueDate RecordedSex Assigned at BirthNot on fileLegal NklLcyb54/02/2015 12:57 PM CSTGender IdentityNot on file Sexual OrientationNot on file Last Filed Vital Signs Vital SignReadingTime TakenCommentsBlood Qnoopxoa779/9901 1:06 PM HOTEL MAINTENANCE WORKER Emiwm047405/13/2022 1:06 PM CPQAiwejnyugyb60.1 ??C (97 ??F)05/13/2022 12:00 PM HOTEL MAINTENANCE WORKER Respiratory Ugxj668105/13/2022 1:06 PM CSTOxygen Tmfwacoihc90%05/13/2022 1:06 PM CSTInhaled Oxygen Concentration--Bvaocn70 kg (163 lb 1.6 oz)05/13/2022 7:23 AM WZWXryarz969.2 cm (5' 7)05/13/2022 7:23 AM CSTBody Mass Index25.55005/13/2022 7:23 AM HOTEL MAINTENANCE WORKER Plan of Treatment Health MaintenanceDue DateLast DoneCommentsADVANCE CARE JXWNCKQA14/16/1953NNUAL REVIEW OF HM XRAJHT08 1952T PUDDJKBVFYOA51/16/1953IABETES SCREENING 1952FIT1952FLEX SIG1952 6279PSHFV49/16/1953URIC ACID1952sDNA (Cologuard)1952 0996QUOKZICPDOD17/16/1963COLORECTAL CANCER XEDXTATBG67/16/1963 HEPATITIS C UDZRRPTJS76/16/1971RSV VACCINE (1 - Risk 50-74 years 1-dose series) 2002FALL RISK RRYSVWONDI67/16/2018MEDICARE ANNUAL WELLNESS VISIT12/16/2022 12/16/2021, 1PHQ-2 (once per calendar year)5COVID-19 VACCINE ( season), 09/07/2021, 03/12/2021, Additional history existsINFLUENZA VACCINE (#1), 02/07/2020, 07/10/2019 DTAP/TDAP/TD VACCINE (2 - Td or Tdap)612/, 06/28/2005 PNEUMOCOCCAL VACCINE 50+ UQMWSKvriuokjv00/11/2020, 06/10/2019ZOSTER VACCINE Gxmzfpoxj53/29/2021, 05/14/2020, 02/26/2013HPV VACCINE (No Doses Required) CompletedMENINGITIS VACCINEAged OutNo longer eligible based on patient's age to complete this topic Insurance Care Teams Team MemberRelationshipSpecialtyStart DateEnd Date Jayro Mcconnell MD PCP - GeneralFamily Toijyumz08/12/22
--- OUTSIDE RECORDS SUMMARY | 2025-04-21 18:52 | XMS_ITS | Data Portability ---
Author Organization [place] [facility] Address [address] [facility] [address] [place] [address] Care Team Providers Care Airline Attendant Name Role Phone [facility] Primary Care Provider Assessment Encounter Date Assessment Date Assessment LastModified by Organization Details LastModified Time 05/14/2022 05/14/2022 71 Y/O MALE. HX URINARY RETENTION, S/P LASER ASSISTED TURP FOR A LARGE OBSTRUCTING PROSTATE. HE IS FROM [place] AND WAS SEEN TO ASSESS SOME HEMATURIA. TOMPKINS IRRIGATED CLEAR ,NO CLOTS AND REASSURED. PLAN RTC SCHEDULED NEXT WEEK FOR VOIDING LHCEIkhgalzr5Hpi tiqnwvhtk89/06/2023 15:22:4601/02/2023Here for TOV/Fill and Pull Tompkins.hpeetrg4Ugy vmjkyulid51/10/2023 08:31:4701//89 Y/O MALE, HX OF URINARY RETENTION ,BPH, S/P LASER TURP. SOMEWHAT SLOW RECOVERY. ANXIOUS. ALL QUESTIONS ANSWERED PLAN RTC 3 MO. PVR,U/Oyghfbbk9Vco gdrfaruhz48/31/2023 11:10:16 Plan of Treatment Reminders Order DateSubmit DateProviderLast Modified ByOrganization DetailsLast Modified TimeDetailsAppointmentsNone recorded.LabNone recorded.ReferralNone recorded. ProceduresNone recorded.SurgeriesNone recorded.ImagingNone recorded.Medication OrdersNone recorded. Patient TargetsNo targets recorded. Patient Instructions Encounter Date Encounter Id Patient Instructions Last Modified By Organization Details Last Modified Time 04/21/2022 [id number] 05/13 TURP [email or web address] Not available 04/21 16:08:42 05/18/2022 [id number] RTC or ER if unable to void again within 5-6 hours. RTC [address] Loya for post-op visit. PATRIC [email or web address] Not available 05/18/2022 11:29:05 Reason for Referral None Reported. Results Created Date Observation Date Name Description Value Unit Range Abnormal Flag Note LastModifiedBy Organization Detail LastModifiedTime 04/05/2022 04/05/2022 URINE CULTURE final report MICROBIOLOG Y RESULTS abnormalSOURCE Catheterized-Tompkins KNOWN ALLERGIES NA TREATMENT NA MEDIA PLATED AT: Media plated on 04/05/2022 @ 4:44 PM COLONY COUNT 50,000-100,000 cfu/ml RESULT Klebsiella (Enterobacter) aerogenes (Isolate 1) RESULT Citrobacter freundii (Isolate 2) Sensitivity Analysis Isolate 1 Isolate 2 --- AMOX/K CLAV >16/8 R >16/8 R AMP/SULBACTAM <=8/4 R <=8/4 R AMPICILLIN >16 R >16 R AZTREONAM <=4*S <=4*S CEFTAZIDIME <=1*S <=1*S CEFTRIAXONE <=1*S <=1*S CEFUROXIME <=4 R 16 R CIPROFLOXACIN <=1*S <=1*S LEVOFLOXACIN <=2*S <=2*S NITROFURANTOIN <=32*S <=32*S PIP/TAZO <=16*S <=16*S TETRACYCLINE <=4*S <=4*S TRIMETH/SULFA <=2/38*S <=2/38*S TRIMETHOPRIM <=8*S <=8*S Organisms that are susceptible to tetracycline are generally also susceptible to doxycycline and minocycline. Any substitution of drugs which have not been tested for sensitivity should be considered based on approved usage of the drugs. Information on doxycycline and minocycline can be found in the Physician's Desk Reference or from the sales & service associate. S= Susceptible;I= Intermediate;R= Resistant;ESBL= Resistance due to confirmed ESBL This lab result is being provided to you and your provider at the same time in compliance with the 21st Century Cures Act. Your provider may not have had time to review and make recommendations based on the result. Please allow up to one week for provider review.Not AvailableMinn[facility] [address], [place], [address], 106/07/2021 11:18:33 Result Notes None recorded. Procedures Surgical History Date Name Laterality Status Provider Name and Address Organization Details Recorded Time 05/18/2022 Fill and [facility] 11:27:0905/14/2022ladder Irrigationcompleted[facility]/14/2022 12:42:13 04/21/2022[facility]2022 16:08:24106/05/2021Urethral Catheter ChangecompletedRic[place] 2372706/05/2021 15:40:401ladder ScancompletedMaymuna [place] [address] 15:45:151Foley Catheter Removal completed[place]dd[place] [address] 09:43:251 CystoscopyElan Loya MD [address] [facility],[address], [place], [address], [facility] Wnpxuqz85/21/2022 09:48:14 Imaging Results None recorded. Procedure Notes None recorded. Medical Equipment None Reported. Allergies No known drug allergies Medications Name Sig Start Date Stop Date Status Note LastModified by Organization Details LastModified Time metoprolol succinate ER 50 m g tablet,extended release 24 hr activeNot AvailableNot AvailableNot Availablelisinopril 20 mg tabletactiveNot AvailableNot AvailableNot Availablesimvastatin 80 mg tabletactiveNot Available Not AvailableNot Availableciprofloxacin 500 mg tabletTAKE 1 TABLET BY MOUTH TWICE DAILY FOR 7 DAYSactiveNot AvailableNot AvailableNot Available sulfamethoxazole 800 mg-trimethoprim 160 mg tabletactiveNot AvailableNot AvailableNot Availabletramadol 50 mg tabletactiveNot AvailableNot AvailableNot Availabletamsulosin 0.4 mg capsuleactiveNot AvailableNot AvailableNot Available cephalexin 500 mg capsuleactiveNot AvailableNot AvailableNot Availablelisinopril 10 mg tabletactiveNot AvailableNot AvailableNot Availablenitroglycerin 0.4 mg sublingual tabletactiveNot AvailableNot AvailableNot Availableallopurinol 300 mg tabletactiveNot AvailableNot AvailableNot Availableketoconazole 2 % topical creamactiveNot AvailableNot AvailableNot Availablefinasteride 5 mg tabletTAKE 1 TABLET BY MOUTH EVERY DAY DIRECTEDactiveNot AvailableNot AvailableNot Availableoxycodone 5 mg rjozsa9502/10/2022ompletedNot AvailableNot AvailableNot Availablenitrofurantoin monohydrate/macrocrystals 100 mg capsuleactiveNot AvailableNot AvailableNot Availableaspirin 81 mg capsuleTake 1 capsule every day by oral route.activeNot AvailableNot AvailableNot Available Vitals Date Recorded Body height Body mass index (BMI) Body weight Provider Name and Address Organization Details Last Updated DateTime 05/14/2022 170.18 cm 25.1 kg/m2 24130.78 g Ernie Loya MD [address] [place] [address],[facility] [address], [place], [address] 05/14/2022 12:28:29 Date Recorded Body height Body mass index (BMI) Body weight Provider Name and Address Organization Details Last Updated DateTime 06/08/2022 170.18 cm 25.1 kg/m2 71027.78 g [facility] 06/08/2022 10:47:55 Social History Question Answer Notes LastModified by Organization D etails LastModified Time Tobacco Smoking Status Never Smoker Ernie Loya MD [address] [place] [address],[address], [address], [facility] Mgumbqv45/05/2022 10:19:14What Was The Date Of Your Most Recent Tobacco Screening?06/08/2022ssambInformation not cntuwqpon05/31/2023 Sex: Unknown Functional Status None recorded. Mental Status None recorded. Family History Relationship Description Onset Age of this Age Resolved Age Notes LastModified by Organization Details LastModified Time Father No current problems or disabilit y qoovlya6Gjh rkcozjlnr84/05/2022 10:18:43MotherNo current problems or disability bzjzifu8Nam kwhwylcno03/05/2022 10:18:43 Medical History Condition Response Heart Disease Y High Blood Pressure Y High Cholesterol Y Past Encounters Encounter ID Performer Location Encounter Start Date Encounter Closed Date Diagnosis/Indication Diagnosis SNOMED-CT Code Diagnosis ICD10 Code Diagnosis IMO Codes Diagnosis Note [id number] MD Cecelia Boateng [address] [place] [address] 02/10/2022 10:02:12 02/12/2022 14:10:16 Retention of urine 110649601 R33.9 Benign prostatic hyperplasia with outflow ptiydhjqepe960684151C00.1 [id number] Boateng [address] [place] [address] 02/26/2022 08:54:121 11:30:04Benign prostatic hyperplasia with outflow itslvxbhbrb394847494B60.1 Retention of stypr786326950Y75.9 [id number] Boateng [address] [place] [address] 02/26/2022 14:45:5803/03/2022 11:32:02Retention of eefnr196966243A32.9 PVR done.Shows 101ml. Pt states he has urinated since he got home this am. Large amount and a couple of small amounts. Had to go to [facility] for Urinary Retention about a month ago, so is a little gun shy.Pt also states he has been having some bleeding since Cysto with Dr Loya. I told him that this is normal. Pt does have abx sample to take. Dr Loya said for him to take it easy for a fe w days and drink lots of water. FLORENCE Chung/[id number] Boateng [address] [place] [address] 03/05/2022 10:31:23105/10/2021 13:12:50Benign prostatic hyperplasia with outflow wsymhajkmui282512436Q35.1 Acute retention of cvwgr374003778S42.8 [id number] Boateng [address] [place] [address] 04/05/2022 14:52:43106/07/2021 11:11:56Urinary tract infectious ijwwxvo50055652 N39.0 Patient states he had UTI in February- wanted urine rechecked. Dysuria and foul smelling urine at times.Retention of nhtuk235082578U84.9 tompkins until 05/13 TURP with [id number] Boateng [address] [place] [address] 04/09/2022 12:15:5704/21/2022 09:06:14Difficulty managing urinary catheter 609561416P50.1 Pts catheter adjusted. Inserted additional 5 cc into balloon, making it 15cc. Will contact if contniues to have [id number] Boateng [address] [place] [address] 04/21/2022 15:34:4712 16:59:00Benign prostatic hyperplasia with outflow nttawauefal751870135P06.1 Patient has been bypassing urine frequently- he doesn't think they are bladder spasms and would like to try changing tompkins before he resorts to medication. [id number] Boateng [address] [place] [address] 05/14/2022 12:10: 10:20:42Benign prostatic hyperplasia with outflow rrbdnuekxoo716546565S15.1 Patient has been bypassing urine frequently- he doesn't think they are bladder spasms and would like to try changing tompkins before he resorts to medication. [id number] Boateng [address] [place] [address] 05/18/2022 10:41:0705/21/2022 12:55:48Retention of dtiau512103994V58.9 See Procedure Documentation for details. S/P TURP per RU on 05/13/2022. IN: 300ml/OUT: 280ml +inc. Ptis already on an abx per his PMD for UTI, and has meds left, so no new abx given. FLORENCE Chung/[id number] Loya MDUA_Phillipa [address] [place] [address] 06/08/2022 10:47: 11:26:45Benign prostatic hyperplasia with outflow ozxuftjdqzd585315497M98.1 Patient has been bypassing urine frequently- he doesn't think they are bladder spasms and would like to try changing tompkins before he resorts to medication. Retention of fqajo239580642T37.9 See Procedure Documentation for details. S/P TURP per RU on 05/13/2022. IN: 300ml/OUT: 280ml +inc. Ptis already on an abx per his PMD for UTI, and has meds left, so no new abx given. FLORENCE Chung/BSN Health Concerns Section Related Observation LastModified by Organization Detai ls LastModified Time None Recorded Concern Status LastModified by Organization Details LastModified Time None Recorded Advance Directives Directive None Recorded Payers Insurance Date Sequence Insurance Name Policy Number Policy Vance Covered Member ID Vance Member ID Guarantor Name 10/25/2024 1 [employer] - DOS ON O R AFTER 19 (MEDICARE REPLACEMENT/ADVANTAGE - HMO) [id number] Armani Eugene Syd [id number] Armani Eugene HynesUCARE - DOS PRIOR TO [id number] Eugene Syd [id number] T HynesUCARE - INSTITUTIONAL (MEDICARE REPLACEMENT/ADVANTAGE)[id number] T [id number] T Hynes Notes Date Note Type Note Provider Name and Address Orga nization Details Recorded Time 04/09/2022 text/html Pt here to have catheter looked at, having some urine bypassingErnie Loya MD [address] [facility] [facility],[address], [place], [address], [facility] [place] Hczjyst62/04/2022 11:03:17005/14/2022text/html 71 YOM HERE FOR URINARY RETENTION. HX OF ELEVATED PSA. PROSTATE BX [place] [address] HAGEN. NEGATIVE PATHOLOGY. CATHETER PLACED A WEEK AGO, SEEN IN ER ON WEDNESDAY 02/07, CATH FOR 800CC . FAILED TOV. ON FLOMAX . NOCTURIA X 1S/P LASER TURP ON 05/13/22. HERE TODAY FOR GROSS HEMATURIA AFTER SURGERY. URINE IS BETTER TODAY. TALA Loya MD [address] [place] [address],[address], [place], [address], [facility] Jkeefdy8705/14/2022 15:23:0706/08/2022text/html 71 YOM HERE FOR URINARY RETENTION F/U. HX OF ELEVATED PSA. PROSTATE BX [place] [address] HAGEN. NEGATIVE PATHOLOGY. CATHETER PLACED A WEEK AGO, SEEN IN ER ON WEDNESDAY 02/07, CATH FOR 800CC . FAILED TOV.ON FLOMAX . NOCTURIA X 1S/P LASER TURP ON 05/13/22. OVERALL IMPROVED FLOW, MILDDYSURIA, FREQ. This visit was conducted by telephone due to the COVID-19 crisis. Prior to conducting our telephonevisit, the patient was apprised of the risks, [...] fully informed decisions. Also, because of the COVID-19pandemic, it was not possible for the patient to sign the privacy regulations, HIPAA release and ass ignment of benefits forms. The patient was given the opportunity to ask questions about these policies and gave verbal acknowledgement and approval of these policies as well as to hold this meeting by telephone. Lastly, the patient agreed to allowing their medication history to be pulled from a national pharmacy database to facilitate and coordinate their care.Ernie Loya MD [address] [facility],[address], [place], [address], [facility] Rteujfx8206/08/2022 11:10:40
--- OUTSIDE RECORDS SUMMARY | 2025-04-21 18:52 | XMS_ITS | Clinical Summary ---
Author Organization [facility] Address [address] [place] [address] Care Team Providers Care Paint Stripper Name Role Phone Jayro Mcconnell MD Primary Care Provider [phone] Ab Rm MD Unavailable + [phone] Mindi Godinez MD Unavailable [phone] Allergies Active AllergyReactionsCriticalityNoted DateCommentsIbuprofenOther - Describe In Comment Field07/20/2024 Hands swelled up Medications MedicationSigDispense QuantityRefillsLast FilledStart DateEnd DateStatus predniSONE (DELTASONE) 5 mg tablet Indications:PMR (polymyalgia rheumatica) (HC)Take a 5 mg tablet combined with two 1 mg tablets daily for 4 weeks then take a 5 mg tablet combined with one 1 mg tablet for 4 weeks then take a 5 mg tablet daily until you follow up with me. 100 Tablet 3:38 PM CDT5Active predniSONE (DELTASONE) 1 mg tablet Indications:PMR (polymyalgia rheumatica) (HC)Continue taking 5tablets (5 mg) by mouth daily for 18 more days then Prednisone 4tablets (4 mg) daily for 4 weeks then Prednisone 3tablets (3 mg) daily for 4 weeks then Prednisone 2tablets (2 mg) daily until you follow up with me. 100 Tablet 2:06 PM CST5Active nitroglycerin (Nitrostat) 0.4 mg sublingual tablet Indications:Coronary artery disease involving [place] coronary artery of [place] heart without angina pectorisPlace 1 Tablet (0.4 mg) under the tongue every 5 minutes if needed for Chest Pain. 25 Tablet 6:08 PM CST5Active metoprolol succinate (Toprol XL) 25 mg Sustained-Release tablet Indications:Essential hypertensionTake 1 Tablet (25 mg) by mouth once daily in the evening. At bedtime 90 Tablet 5Active atorvastatin (LIPITOR) 40 mg tablet Indications:Coronary artery disease involving [place] coronary artery of [place] heart without angina pectoris,Pure hypercholesterolemiaTake 1 Tablet (40 mg) by mouth at bedtime. 90 Tablet 5Active amLODIPine (NORVASC) 2.5 mg tablet Indications:Essential hypertensionTake 1 Tablet (2.5 mg) by mouth at bedtime. 90 Tablet 5Active allopurinoL (ZYLOPRIM) 300 mg tablet Indications:Gout, unspecified cause, unspecified chronicity, unspecified site Take 1 Tablet (300 mg) by mouth once daily. 90 Tablet 5Active aspirin enteric coated 81 mg tablet Indications:Coronary artery disease involving [place] coronary artery of [place] heart without angina pectorisTake 1 Tablet (81 mg) by mouth once daily with a meal. Do not crush or chew.5Active lisinopriL (PRINIVIL; ZESTRIL) 40 mg tablet Indications:Essential hypertensionTake 1 Tablet (40 mg) by mouth once daily. In the morning. 90 Tablet 2:06 PM CST5Active Active Problems ProblemNoted DateDiagnosed DatePMR (polymyalgia rheumatica)07/27/2024 Overview (01/01/2025): UpToDate advises: Prednisone 15 mg daily as the starting dose. Taper by 2.5 mg every 4 weeks until down to 10 mg daily and then go down by 1 mg every 4 weeks. Ascending aorta fzefmgkl18/10/2024 Overview (11/16/2023): Diagnosed in 11/2023 with ascending aorta that measures 4 cm in diameter. Will do yearly monitoring with echocardiogram or CT. [facility] recommends surgery for 5.5 cm or greater as of 11/16/2023. Jayro Mcconnell MD Essential ejgttzcqjfso11/10/2019 Overview (06/22/2024): Prior to his recent illness that caused his blood pressure to be low, he was taking: Metoprolol XL 50 mg in the evening Lisinopril-hyrdrochlorothiazide 20-12.5 in the evening. Seborrheic qztcamzcy18/16/2018 Overview (10/14/2017): 1 by 1.5 cm flesh colored lesion on right shoulder. 6 by 15 mm as of 10/14/2017 Benign non-nodular prostatic hyperplasia with lower urinary tract symptoms 07/21/2015Coronary artery disease involving [place] coronary artery of [place] heart without angina xdiwvggj36/11/2016 Overview (10/16/2018): Stent in mid left anterior descending in 2007. No history of DC. Idiopathic gout05/19/2015DDD (degenerative disc disease), fyqqld9208/27/2011 Degenerative arthritis of both hips - R worse than L08/27/2011 Overview (08/13/2013): Pt scheduled for right total hip arthroplasty on 08/20/[address] Herron Elevated prostate specific antigen (PSA)08/22/2011 Overview (07/28/2012): Bx negative in 2011 Colon polyp09/02/2010 Overview (03/29/2024): Colonoscopy 08/2010 polyp repeat in 3 years Colonoscopy 12/2013 normal repeat in 5 years Colonoscopy 12/2018 normal, repeat in 5 years Colonoscopy 03/2024 TA, repeat in 5 years Jncsuwdkbyq29/23/2010 Overview (08/13/2013): Glucose (07/27/13) 116 Generalized axesaafedwsum42/17/2008Degeneration of lumbar or lumbosacral intervertebral disc03/23/2007 Overview (08/13/2013): Pt takes aspirin in the morning. Pure gstvvplfcnwdmjogxlxw68/15/2007 Overview (07/28/2012): Last Lipids: Chol: 148 07/28/2012 T 07/28/2012 HDL: 39 07/28/2012 LDL: 81 07/28/2012 On simvastatin Resolved Problems ProblemNoted DateDiagnosed DateResolved DateOther chest pain Overview (10/24/2007): -had pain 3 years ago -stress test was negative per patient report -this time started 10/18/2007 while driving (does not usually drive) -had same pain while running a couple of blocks on 10/19/2007 -same pain while walking around [place] 10/20/2007 -same pain 2 episodes 10/24/2007 -chest burning/tightness -some dyspnea -some diaphoresis -radiating to left arm and up into neck/jaw Gouty Sancagqsrbz66 Encounters DateTypeDepartmentCare DppwStoeagpqwng21/12/2025 9:15 AM CSTOrders Only [facility] [address] [place] [address] [place] <No scans attached>04/19/20256709Pwxoxh70/08/2863Kfrqnc40/12/2025 8:50 AM CSTOffice Visit [facility] [address] [place] [address] Jayro Mcconnell MD Medicare ANNUAL (subsequent) Visit (72 years); Immunization/Fuytqgzjm34/12/2025 Prekpz6903/15/2025 8:15 AM CSTOrders Only [facility] [address] [place] [address] [place] <No scans attached>03/15/20252763Gopwyk39/04/2025Refill [facility] [address] [place] [address] Jayro Mcconnell MD Refill Request (nitro)03/10/2025Travelfrom Last 3 Months Immunizations ImmunizationAdministration DatesNext DueAmb Influenza, Inactivated AIIV4 (Age 65+ Years) Preserv Free02/07/2020COVID-19 VACCINE SPIKEVAX (MODERNA 50MCG/0.5ML) 12YO+ PFS11/04/2025,08/31/2024,4COVID-19 vaccine (Moderna 100mcg/0.5mL) PF, MDV08/07/2020,1COVID-19 vaccine (Pfizer-BioNTech 30mcg/0.3mL) 12YO+ BIVALENT PF, MDV105/15/2021Influenza, High-dose Quadrivalent Inactivated 02/07/2023Influenza, Inactivated AIIV4 (Age 65+ Years) Preserv Free03/15/2022 Influenza, Inactivated IIV3 (Age 65+ Years) Preserv Free03/20/2025,07/10/2019 Pneumococcal Poly,23-Valent (Pneumovax)10/18/2019Pneumococcal conj 13-Valent (Prevnar 13)10/16/2018Td (Age >=7 Years)06/28/2005Tdap106/24/2015Zoster (Shingrix-RZV, recombinant)09/04/2020,05/14/2020Zoster (Zostavax-ZVL, live) 02/26/2013 Family History Medical HistoryRelationNameCommentsArthritisFatherbilateral hip replacements Heart DiseaseFatherneeded 3 stents at age 89HypertensionFatherlater in life mesotheliomaFatherhe of thisStrokeMotherdied of stroke at 71; smoker HypertensionOtherMIRelationNameStatusCommentsBrother 1AliveBrother 2AliveBrother 3AliveFatherDeceasedMotherDeceasedOtherSister 1GeraldineAliveSister 2MarieAlive Sister 3Alive Social History Tobacco UseTypesPacks/DayYears UsedDateSmoking Tobacco: NeverPassive Smoke Exposure: NeverSmokeless Tobacco: Never Tobacco Cessation:Counseling Given: Yes Comments:lived with 2nd hand smoke for 18 yrs. Alcohol UseStandard Drinks/WeekCommentsNot Currently0 (1 standard drink = 0.6 oz pure alcohol)only when in IrelandPHQ-2AnswerDate RecordedPHQ-2 TOTAL SCORE0 03/20/2025Social ConnectionsAnswerDate RecordedDo you often feel lonely or isolated from those around you?Financial Resource StrainAnswerDate RecordedDifficulty of Paying Living Gdlzsmqj510/07/2025Difficulty of Paying Living ExpensesNot on file07/13/2024Food InsecurityAnswerDate RecordedDo you worry your food will run out before you are able to buy more? Transportation NeedsAnswerDate RecordedDoes lack of transportation keep you from medical appointments?Does lack of transportation keep you from work, meetings or getting things that you need?Housing StabilityAnswerDate RecordedWhat is your housing situation today?UtilitiesAnswerDate RecordedDo you have trouble paying for utilities (for example, heat, electricity, water, phone)?Sex and Gender InformationValueDate RecordedSex Assigned at BirthNot on fileLegal CtlSnuo7605/22/2012 5:42 AM [employer] Gender IdentityNot on fileSexual OrientationNot on fileOccupationIndustryJob Start DateJob End DateTeacherNot on fileNot on fileNot on file Last Filed Vital Signs Vital SignReadingTime TakenCommentsBlood Dmptjsfu729/7803/20/2025 9:04 AM [employer] Jrgvo700103/20/2025 8:58 AM JSTKsqquxcgfok42.2 ??C (97.2 ??F)03/20/2025 8:58 AM CSTRespiratory Jsjp445012/21/2022 12:40 PM CDTOxygen Rughdmjqpg646%03/20/2025 8:58 AM CSTInhaled Oxygen Concentration--Sfilth47.9 kg (174 lb)03/20/2025 8:58 AM [employer] Xympcd368.2 cm (5' 7.4)03/20/2025 8:58 AM CSTBody Mass Index26.9303/20/2025 8:58 AM [employer] Plan of Treatment DateTypeDepartmentCare Team (Latest Contact Info)Ctfgbqbgxyk88/10/2026 8:20 AM CDTOffice Visit [facility] [address] [facility] [place] [address] Jayro Mcconnell MD [address] [place] [address] Health MaintenanceDue DateLast DoneCommentsRSV vaccine for adults or (1 - Risk 50-74 years 1-dose series)2002COVID-19 vaccine series (2024- season), 08/31/2024, 03/02/2024, Additional history existsBMI (ht and wt on same day) for age 18+, 03/02/2024, 02/22/2024, Additional history existsDepression screening for age 12+03/20/2026 03/20/2025, 02/22/2024, 06/10/2023, Additional history existsMedicare Wellness for age 65+, 02/22/2024, 12/16/2021, Additional history existsTetanus brihjhb65, 06/28/2005Colonoscopy through age 75 , 03/23/2024, 03/23/2024, Additional history existsLipids for age 45-750, 08/28/2024, 02/22/2024, Additional history existsHepatitis C screening for age 18-42Zcoruvglw53/29/2017Pneumococcal series for age 50+Yuxqbuebp50/11/2020, 10/16/2018Zoster (shingles) series for age 50+ Xnyrbrxqc48/29/2021, 05/14/2020, 02/26/2013Influenza EksmhaqVtuvfgirb39/12/2025, 03/15/2022, 02/07/2020, Additional history existsHepatitis B series for 19+Aged OutNo longer eligible based on patient's age to complete this topic Medical Devices ImplantedTypeAreaManufacturerDevice IdentifierShelf Expiration DateModel / Serial / LotShell Hip Rt Od58mm Yazidism Adm X3 - [id number] [facility] HipStryker [id number]# / / [id number] Hip Sz4 127deg Accolade Ii - [id number] Implanted:Qty: 1 on [facility]20/2013 [facility]: [id number]# / / [id number] Hip Id28 Od58mm Adm X3 Pe - [id number] Implanted:Qty: 1 on [facility]20/2013 [facility]: HipSFieldSolutions [id number]# / / [id number] Hip Od28mm +4 Biolox Delta C-Taper Alumina Cer - [id number] Implanted:Qty: 1 on 08/20/2013 [facility]: [id number]# / / [id number] Hip Lt Od58mm Yazidism Adm X3 - [id number] Implanted:Qty: 1 on 06/05/2015 by [facility]: [id number]# / / [id number] Hip Sz4 127deg Accolade Ii - [id number] Implanted:Qty: 1 on 06/05/2015 by [facility]: [id number]# / / [id number] Hip Id28 Od58mm Adm X3 Pe - [id number] Implanted:Qty: 1 on 06/05/2015 by [facility]: iPosition [id number]# / / [id number] Hip Od28mm +4 Biolox Delta C-Taper Alumina Cer - [id number] Implanted:Qty: 1 on 06/05/2015 by [facility]: [id number]# / / [id number] Procedures Procedure NamePriorityDate/TimeAssociated DiagnosisCommentsBASIC METABOLIC PANEL Ubyjecd3504/19/2025 9:08 AM [employer] Essential hypertension SEDIMENTATION PKRUBkfvtui11/07/2025 8:09 AM [employer] PMR (polymyalgia rheumatica) (HC) BASIC METABOLIC XADQEKmhwnhe27/07/2025 8:09 AM [employer] Essential hypertension LIPID PANEL W REFLEX MEASURED XRXNfbtfej84/22/2025 9:53 AM CDT Pure hypercholesterolemia COLONOSCOPY LMSWSAJIWXukiazi48/15/2024 7:22 AM [employer] Family history of colon cancer ANTI KVVTwxdmor13/29/2017 10:17 AM CDT Need for hepatitis C screening test from Last 3 Months or Most Recently Relevant to Health Maintenance Results * (ABNORMAL) BASIC METABOLIC PANEL (04/19/2025 9:08 AM [employer]) Only the most recent of2 resultswithin the time period is included. ComponentValueRef RangeTest MethodAnalysis TimePerformed AtPathologist Signature NKNZZI838407 - 146 mmol/L106/21/2024 5:11 AM CSTQUEST DIAGNOSTICSPOTASSIUM3.63.5 - 5.3 mmol/L106/21/2024 5:11 AM CSTQUEST DIAGNOSTICSCARBON RGRCSCX6567 - 32 mmol/L106/21/2024 5:11 AM CSTQUEST RXUWWVNUVJUHVSYIGF4117 - 99 mg/dL04/20/2025 5:11 AM CSTQUEST DIAGNOSTICSComment: ? Fasting reference interval CALCIUM9.28.6 - 10.3 mg/dL04/20/2025 5:11 AM CSTQUEST DIAGNOSTICSCREATININE1.28 0.70 - 1.28 mg/dL04/20/2025 5:11 AM CSTQUEST DIAGNOSTICSBUN/CREATININE RATIOSEE NOTE:6 - (calc)04/20/2025 5:11 AM CSTQUEST DIAGNOSTICSComment: ?? Not Reported: BUN and Creatinine are within ?? reference range. ? EGFR59(L)> OR = 60 mL/min/1.77k78704/20/2025 5:11 AM CSTQUEST DIAGNOSTICSUREA NITROGEN (BUN)197 - 25 mg/dL04/20/2025 5:11 AM CSTQUEST DIAGNOSTICSELECTROLYTE BALANCE6(L)7 - 17 mmol/L (calc)04/20/2025 5:11 AM CSTQUEST DIAGNOSTICSCHLORIDE 74576 - 110 mmol/L106/21/2024 5:11 AM CSTQUEST DIAGNOSTICSSpecimen (Source) Anatomical Location / LateralityCollection Method / VolumeCollection Time Received TimeBloodBLOOD SPECIMEN / UnknownQuest Collect / Poraxil7304/19/2025 9:08 AM CST04/19/2025 9:08 AM [employer] Narrative Authorizing ProviderResult TypeResult StatusJayro Mcconnell [facility] OKLAHOMA CITYHEMISTRYFinal ResultPerforming OrganizationAddressCity/State/ZIP CodePhone Number [facility] [place] [place] [address], [place] [phone] * SEDIMENTATION RATE (03/15/2025 8:09 AM [employer])ComponentValueRef RangeTest Method Analysis TimePerformed AtPathologist SignatureSED RATE BY MODIFIED WESTERGREN9 < OR = 20 mm/h105/16/2024 5:17 AM CSTQUEST DIAGNOSTICSSpecimen (Source) Anatomical Location / LateralityCollection Method / VolumeCollection Time Received TimeBloodBLOOD SPECIMEN / UnknownQuest Collect / Bpadpsv7503/15/2025 8:09 AM CST03/15/2025 8:09 AM [employer] Narrative Authorizing ProviderResult TypeResult StatusJayro Mcconnell INHEMATOLOGYFinal ResultPerforming OrganizationAddressCity/State/ZIP CodePhone Number [facility] [address] [address], [place] [phone] * LIPID PANEL W REFLEX MEASURED LDL (12/28/2024 9:53 AM CDT)ComponentValueRef RangeTest MethodAnalysis TimePerformed AtPathologist SignatureCHOLESTEROL, UKNAN906<200 mg/dL12/29/2024 3:47 AM CDTQUEST XIYMFJPSWXTNQOMTWIWCSLYD680<150 mg/dL12/29/2024 3:47 AM CDTQUEST DIAGNOSTICSHDL TSRRBXMSEGJ08> OR = 40 mg/dL 12/29/2024 3:47 AM CDTQUEST DIAGNOSTICSNON HDL HNVKNEUVFXM00<130 mg/dL (calc) 12/29/2024 3:47 AM CDTQUEST DIAGNOSTICSComment: For patients with diabetes plus 1 major ASCVD risk factor, treating to a non-HDL-C goal of <100 mg/dL (LDL-C of <70 mg/dL) is considered a therapeutic option. CHOL/HDLC RATIO3.1<5.0 (calc)12/29/2024 3:47 AM [facility] LDL-NKEDFKBDODC59qd/dL (calc)12/29/2024 3:47 AM [facility] DIAGNOSTICSComment: Reference range: <100 Desirable range <100 mg/dL for primary prevention; <70 mg/dL for patients with CHD or diabetic patients with > or = 2 CHD risk factors. LDL-C is now calculated using the Logan calculation, which is a validated novel method providing better accuracy than the Friedewald equation in the estimation of LDL-C. Armani SS et al. MELINDA. 2013;310(19): 8150-5537 (http://education.PurePredictive/faq/JDR652) Specimen (Source)Anatomical Location / LateralityCollection Method / Volume Collection TimeReceived TimeBloodBLOOD SPECIMEN / UnknownQuest Collect / Unknown 12/28/2024 9:53 AM CDT12/28/2024 9:53 AM CDT Narrative Authorizing ProviderResult TypeResult StatusMark Christopher Mcconnell MDCHEMISTRYFinal ResultPerforming OrganizationAddressCity/State/ZIP CodePhone Number [facility] [address] [address], * SCAN-COLONOSCOPY (03/23/2024 12:00 AM [employer]) Narrative Authorizing ProviderResult TypeResult StatusScannerOTHERFinal Result * ANTI HCV (08/04/2016 10:17 AM CDT)ComponentValueRef RangeTest MethodAnalysis TimePerformed AtPathologist SignatureHEPATITIS C ANTIBODYNon-Reactive Non-Cxrmixdm54/29/2017 5:59 PM CDTALLONG PRAIRIE [facility]ORYC[facility] Specimen (Source)Anatomical Location / LateralityCollection Method / Volume Collection TimeReceived TimeBloodBLOOD SPECIMEN / UnknownVenipuncture / Fsqfhwp3708/04/2016 10:17 AM CDT08/04/2016 10:17 AM CDT Narrative [facility] - 08/04/2016 5:59 PM CDT Antibodies to HCV not detected; does not exclude the possibility of exposure to HCV. Authorizing ProviderResult TypeResult StatusMark Christopher Mcconnell MDSEND OUTSFinal ResultPerforming OrganizationAddressCity/State/ZIP CodePhone Number [facility] [address] [place] [address], from Last 3 Months or Most Recently Relevant to Health Maintenance Insurance * Guarantor: Armani Velarde TypeRelation to PatientDate of BirthPhone Billing AddressPersonal/VngbogMgjr29/16/1951 [address] [id number] Advance Directives TypeDate RecordedPatient RepresentativeExplanationHealthcare Directive12/06/2008 [facility], [facility], 11/08 * Full Code (Latest Code Status on File) Date ActivatedDate InactivatedComments12/21/2022 9:23 AM12/21/2022 3:07 PMQuestion AnswerCommentsCode Status Discussion:* Unable to Assess Preferences, Provider to review later * Full Code Date ActivatedDate InactivatedComments06/05/2015 2:06 PM06/08/2015 8:05 PM * Full Code Date ActivatedDate InactivatedComments06/05/2015 5:15 AM06/05/2015 2:06 PM * Full Code Date ActivatedDate InactivatedComments08/20/2013 4:24 PM08/22/2013 7:11 PM * Full Code Date ActivatedDate InactivatedComments08/20/2013 7:59 AM08/20/2013 4:24 PM Care Teams Team MemberRelationshipSpecialtyStart DateEnd Date LabJayro henriquez MD [address] [place] [address] [facility] - General07/08/09 Ab Rm MD [address] [place] [address] UrologySurgery - Urology08/23/11 Mindi Godinez MD [address] [place] [address] [place] [address] Surgery - Urology11/15/24
== END 2025-04-21 20:06 | disposition left against medical advice (07) ==
PROVIDERS: Emergency Provider Family Medicine; PCP Family Medicine
DX: Z53.21 Procedure and treatment not carried out due to patient leaving prior to being seen by health care provider (principal)